=== PATIENT | female | born 1975 | race Caucasian/White ===

== ENCOUNTER 2022-10-20 16:09 | Emergency (ER) | payer OTHER, SELFPAY ==
--- NOTE | 2022-10-20 16:11 | ED_ITS ---
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 Patient states that she believes it was a spider as she did not see anything flying in the area. Patient denies any dizziness, lightheadedness, abdominal pain, nausea, vomiting, fever, chills, blurry vision, double vision, loss of vision, chest pain, difficulty breathing, shortness of breath, back pain, night sweats, pain with urination, increased urinary frequency, increased urinary urgency, blood in her urine or stool, syncope or a near syncopal episode, bowel incontinence, bladder incontinence, bowel retention, bladder retention, or any other complaints at this time. Onset (ago): minute(s) Location: left and upper extremity Radiation: non-radiation Severity: mild Severity scale (1-10): 3 Quality: aching and dull Pain Consistency: constant Relieving factors: none Exacerbating factors: none Associated symptoms: denies other symptoms Treatments prior to arrival: none Related Data Previous Rx's Medication Instructions Recorded prednisone 20 mg tablet 20 mg PO DAILY 7 days #7 tabs 10/20/22 Allergies Allergy/AdvReac Type Severity Reaction Status Date / Time insect venom [insect bites] Allergy Anaphylaxis Verified 10/20/22 16:18 Review of Systems Constitutional: Constitutional: Reports no additional constitutional complaints, Denies chills, Denies fever(s) and Denies night sweats Eyes: Eyes: Reports no additional eye complaints, Denies blurry vision, Denies change in vision, Denies diplopia, Denies eye discharge, Denies loss of vision and Denies eye pain ENT: Denies dizziness Cardiovascular: Cardiovascular: Reports no additional cardiovascular complaints, Denies chest pain, Denies lightheadedness, Denies Loss of Consciousness and Denies dyspnea Respiratory: Respiratory: Reports no additional respiratory complaints and Denies dyspnea Gastrointestinal: Gastrointestinal: Reports no additional gastrointestinal complaints, Denies abdominal pain, Denies melena, Denies hematochezia, Denies change in bowel habits and Denies change in stool character Genitourinary: Genitourinary: Denies hematuria, Denies urinary frequency, Denies dysuria, Denies urinary incontinence, Denies urinary hesitancy and Denies urinary urgency Musculoskeletal: Musculoskeletal: Reports no additional musculoskeletal complaints, Denies numbness and Denies tingling Comments: left wrist insect bite Neurologic: Denies dizziness, Denies loss of vision, Denies numbness and Denies tingling Psychiatric: Psychiatric: Reports no additional psychiatric complaints Endocrine: Endocrine: Reports no additional endocrine complaints Hematologic/Lymphatic: Hematologic/Lymphatic: Reports no additional hematologic/lymphatic complaints Allergic/Immunologic: Allergic/Immunologic: Reports no additional allergic/immunologic complaints PMFSH Past Medical History Attestation statement: The following information was validated with the patient. Source: old records reviewed and nursing notes reviewed Physical Exam ED Vital Signs: Vital Signs - 24 hr 10/20/22 16:13 Temperature 98.1 F Pulse Rate 69 Respiratory Rate 18 Blood Pressure 145/89 H Pulse Oximetry 96 Oxygen Delivery Method Room Air BMI result Body Mass Index 31.6 Const General: cooperative, no acute distress, alert and awake Nutritional Appearance: well nourished Orientation/consciousness: patient oriented x3 Limitations: no limitations HENMT Head: Yes normal to inspection and Yes atraumatic Ears: hearing grossly normal bilaterally and external ears normal General nose exam: Normal external nose present, no nasal discharge noted and no epistaxis Face and sinus: Yes normal facial exam, No abrasion and No laceration Mouth: Normal oral and palatal mucosa present, no drooling and no muffled voice Eyes General: appearance normal, both eyes and all related structures Periorbital: periorbital findings normal Eyelids: Yes eyelids normal Conjunctivae: conjunctivae normal Pupils: Equal, round and reactive pupils present EOM: EOMs intact bilaterally Neck Neck: Yes normal visual inspection, Yes full ROM and Yes no lymphadenopathy Chest Chest palpation & inspection: normal inspection of the chest Resp Effort & Inspection: normal respiratory effort and able to speak in complete sentences GI Inspection: Yes normal to inspection Neuro General: patient oriented x3 and moves all extremities Cranial nerves: Yes Equal, round and reactive pupils present Cognition (Neuro): normal cognition Motor exam (neuro): 5/5 motor strength present throughout Sensory Exam: Normal double simultaneous stimulation for sensation Coordination: [id number] test normal Extrem Other: small insect bite to the left lateral wrist General: Yes full ROM and Yes capillary refill normal Psych Appearance: grossly normal Mental Status: mental status grossly normal Affect: normal affect Attitude: cooperative Thought process: Normal thought process present Thought content: Normal thought content present Insight: Good insight present (Psych) Course Course Course Narrative: RME performed by Jane Hall PA-C. Patient is a 47 year old assigned femal e at presenting to the emergency department with an insect bite to the left wrist. [Labs/imaging/swabs] ordered. Patient placed back in the waiting room pending room availability and results. 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 Patient's physical exam was as noted in the physical exam portion of this note. I explained my physical exam findings to the patient. I answered all questions asked by the patient. Patient received IM solu-medrol and PO bendaryl which she stated helped her symptoms significantly. I stressed the importance of the patient taking her medication as prescribed. I stressed the importance of the patient following up with her primary care provider. I stressed the importance of the patient returning to the emergency department immediately if her symptoms were to worsen or if she were to develop any dizziness, shortness of breath, difficulty breathing, chest pain, blurry vision, loss of vision, nausea, vomiting, abdominal pain, fever, chills, back pain, or any other complaints. Patient verbalized agreement and understanding with this treatment plan and discharge. Differential Diagnosis Differential Diagnoses: The differential diagnosis associated with the presentation includes Bug bite Insect bite Allergic reaction Localized allergic reaction Prescription Management I considered prescription management with: Other (patient was given an oral steroid) Discharge Plan Discharge Clinical Impression: Allergic reaction Patient Disposition: Home, Self-Care Instructions: General Allergic Reaction (ED) Additional Instructions: Follow up with your primary care provider. Return to the emergency department immediately if your symptoms worsen or if you develop any dizziness, shortness o f breath, difficulty breathing, chest pain, blurry vision, loss of vision, nausea, vomiting, abdominal pain, fever, chills, back pain, or any other complaints. Prescriptions: New prednisone 20 mg tablet 20 mg PO DAILY 7 Days Qty: 7 0RF Referrals: Hoa Doty MD [Primary Care Provider] - Interventions: ED Discharge Assessment Last Done: 10/20/22 16:29 Print Language: Salvadorean
[2022-10-20 16:13] VITALS: BP 145/89; PULSE 69; RESP 18; TEMP 36.7; O2SAT 96; BMI 31.6
[2022-10-20] MEDS: methylPREDNISolone Sod Succ 125 MG/2 ML VIAL 60 MG IM (16:25)
[2022-10-20] MEDS: diphenhydrAMINE HCL 25 MG CAPSULE PO (16:25)
== END 2022-10-20 16:34 | disposition home or self-care (01) ==
LOC: HO.ED 16:34
PROVIDERS: Emergency Provider Emergency Medicine; PCP Internal Medicine
DX: L50.0 Allergic urticaria (principal)
CPT/HCPCS: 96372; 99282; 99283; J2930

== ENCOUNTER 2022-10-29 08:52 | Outpatient (AMB) | payer OTHER, SELFPAY ==
[2022-10-29 08:56] VITALS: BP 134/86; PULSE 80; O2SAT 98; BMI 33.5
--- NOTE | 2022-10-29 08:56 | A.OFFPC_ITS ---
Vital Signs 10/29/22 08:56 Height 5 ft 5 in Weight 201 lb 6 oz BMI 33.5 BP 134/86 Blood Pressure Location Lt brachial Position Sitting Pulse 80 Pulse Source Pulse Oximeter Pulse Oximetry (%) 98 Oxygen Delivery Method Room Air Intake Visit Reasons: [employer]ER, request a physical Intake Note: Patient is a new patient here to establish care. PCP will do annual physical today. Transferring care from [facility]. Medical records have been requested Today. Miller Supervisor Required: No Accompanied by: Self / Same As Patient Allergies insect venom [insect bites] Allergy (Verified 10/29/22 09:17) Anaphylaxis Medication List - Last Reconciled 10/29/22 by Hoa Salgado MD bupropion HCl 300 mg PO DAILY Tobacco use date assessed: 10/29/22 Dental Screening Dental Screen Date: 10/29/22 Did you have a dental visit in the last 12 months?: Yes Did you have a dental problem in the last 6 months where you did not have access to dental care?: No Was dental information given to patient?: Patient has dentist HPI HPI Comments History of Present Illness Details This is a 47-year-old female with mild major depression that comes for her physical exam as new patient. Last Pap smear was at [facility] at 2019 and he was normal as per patient. Last mammogram was 2020. Has never had a colonoscopy. Has family history of early coronary artery disease. Has occasional chest pain when and shows. Depression stable with bupropion. She is obese with a BMI of 33.9 and was advised to do diet and exercise to reach BMI goal less than 30. [facility] Surgical History History of knee surgery Family History Mother Cardiovascular disease Father COPD (chronic obstructive pulmonary disease) Heart attack Congenital heart failure Social History (Updated 10/29/22 @ 09:24 by Hoa Salgado MD) Housing: House Alcohol intake: former Patient Tobacco Use Status: Former Tobacco user Tobacco use type: Cigarette (quit 7 years ago) e-Cigarette/Vaping Use: Never Used service: No Current occupational status: employed Cognitive needs: No Hearing needs: No Vision needs: Yes Questionnaire PHQ-9 Over the last 2 weeks, how often have you been bothered by any of the following problems? 1. Little interest or pleasure in doing things: not at all 2. Feeling down, depressed, or hopeless: not at all 3. Trouble falling or staying asleep, or sleeping too much: not at all 4. Feeling tired or having little energy: not at all 5. Poor appetite or overeating: not at all 6. Feeling bad about yourself - or that you are a failure or have let yourself or your family down: not at all 7. Trouble concentrating on things, such as reading the newspaper or watching television: not at all 8. Moving or speaking so slowly that other people could have noticed. Or the opposite - being so fidgety or restless that you have been moving around a lot more than usual: not at all 9. Thoughts that you would be better off or of hurting yourself in some way: not at all Total score: 0 Depression Screening Interpretation: Negative [id number] - PHQ-9 Billing: Yes Source: Developed by Drs. Ventura Harris, Katelyn Hines, Kian Tabor and colleagues, with an educational sreedhar from [employer]. Thrive Questionnaire Date Thrive assessed: 10/29/22 I am a: Patient What is your living situation today?: I have a steady place to live Within the past 12 months, did the food you bought not last and you didn't have the money to get more?: Never true Within the past 12 months, did you worry whether your food would run out before you got money to buy more?: Never true Do you have trouble paying for medicines?: No Do you have trouble getting transportation to medical appointments?: No Do you have trouble paying your heating and electricity bill?: No Do you have trouble taking care of your child, family member or friend?: No Do you have trouble with day-to-day activities such as bathing, preparing meals, shopping, managing finances, etc.?: No Are you currently unemployed and looking for a job?: No Are you interested in more education?: No Please select the resources that you would like help with: None Currently or been in a relationship where the following occur: no concerns reported AUDIT C Alcohol Use Questionnaire (AUDIT-C) 1. How often do you have a drink containing alcohol?: Never 3. How often do you have six or more drinks on one occasion?: Never Total Score: 0 LILLIE-7 AMB Questionnaire LILLIE-7 Date LILLIE - 7 assessed: 10/29/22 Feeling nervous, anxious, or on edge: 0 = Not at all Not being able to stop or control worryin = Not at all Worrying too much about different things: 0 = Not at all Trouble relaxin = Not at all Being so restless that it is hard to sit still: 0 = Not at all Becoming easily annoyed or irritable: 0 = Not at all Feeling afraid as if something awful might happen: 0 = Not at all Total LILLIE-7 score (0-4 normal; 5-9 mild; 10-14 moderate; 15-21 severe): 0 Source: Developed by Drs. Ventura Harris, Katelyn Hines, Kian Tabor and colleagues, with an educational sreedhar from [employer]. LILLIE-7 Assessment Billing LILLIE-7 Assessment Tool: LILLIE-7 Assessment [id number] Review of Systems Const All systems reviewed & are unremarkable except as noted in HPI and below Eyes Reports no additional complaints, Denies change in vision and Denies other visual disturbances Resp Denies cough GI Denies abdominal pain, Denies change in bowel habits, Denies excessive flatus, Denies nausea and Denies vomiting Denies urinary incontinence, Denies urinary hesitancy and Denies urinary urgency Musc Denies abnormal gait, Denies atrophy, Denies deformity and Denies limited range of motion Skin/Breast Denies bleeding lesions, Denies changing lesions and Denies rash Neuro Denies abnormal gait and Denies lack of coordination Physical exam (Primary Care) Vital Signs: Last Vital Signs Pulse 80 10/29/22 08:56 BP 134/86 10/29/22 08:56 Pulse Ox 98 10/29/22 08:56 Oxygen Delivery Method Room Air 10/29/22 08:56 BMI result Body Mass Index 33.5 Tobacco/Smoking Status: Tobacco use Status Tobacco use date assessed 10/29/22 10/29/22 09:16 Patient Tobacco Use Status Former Tobacco user 10/29/22 09:24 Tobacco use type Cigarette (quit 7 years ago) 10/29/22 09:24 e-Cigarette/Vaping Use Never Used 08/15/23 09:24 PHQ-9: PHQ-9 Score PHQ-9: Total score 0 10/29/22 09:39 Depression Screening Interpretation: Negative Thrive Assessment: Date of Thrive Assessment Date Thrive assessed 10/29/22 10/29/22 09:16 Currently or been in a relationship where the following occur: no concerns reported Const Orientation/consciousness: patient oriented x3 HENMT Head: Yes normal to inspection, Yes normocephalic and Yes atraumatic Ears: external ears normal Eyes General: appearance normal, both eyes and all related structures Eyelids: Yes eyelids normal Conjunctivae: conjunctivae normal Neck Neck: Yes normal visual inspection and Yes supple Resp Effort & Inspection: normal respiratory effort Auscultation: clear to auscultation bilaterally Cardio Jugular venous distension: no JVD Rate: regular rate Rhythm: regular rhythm Heart sounds: S1 normal heart sound present and S2 normal heart sound present GI Inspection: Yes normal to inspection Palpation (GI): Soft to palpation and nontender Auscultation: normal bowel sounds Skin General skin exam: no rashes or lesions noted Neuro General: patient oriented x3 and no focal motor deficits Extrem General: Yes full ROM Psych Appearance: grossly normal Assessment and Plan Assessment & Plan (1) Physical exam: Code(s): Z00.00 - Encounter for general adult medical examination without abnormal findings Plan: Repeat in a year (2) Mild major depression: Code(s): F32.0 - Major depressive disorder, single episode, mild Plan: Continue bupropion Orders: Orders CA echo transthoracic complete Today R01.1 - Cardiac murmur, unspecified Comprehensive [place]. Panel Fast Today Z00.00 - Encounter for general adult medical examination without abnormal findings Lipid Panel Today Z00.00 - Encounter for general adult medical examination without abnormal findings Thyroid Stimulating Hormone Today E66.9 - Obesity, unspecified, Z68.33 - Body mass index [BMI] 33.0-33.9, adult ECG 12 lead EKG Today R07.9 - Chest pain, unspecified Complete Blood Count Auto Diff Today E66.9 - Obesity, unspecified, Z68.33 - Body mass index [BMI] 33.0-33.9, adult MM screening mammo BI Today Z12.31 - Encounter for screening mammogram for malignant neoplasm of breast Coding Level of Care Code New Pt Prev Care 40-64y(70023) Diagnoses Physical exam Z00.00 Mild major depression F32.0 Additional Codes LILLIE-7 Assessment Billing - LILLIE-7 Assessment Tool: LILLIE-7 Assessment [id number] ([id number]) Time Spent (min) 31
== END 2022-10-29 09:38 | disposition home or self-care (01) ==
PROVIDERS: PCP Internal Medicine; Visit Provider Internal Medicine
DX: Z00.00 Encounter for general adult medical examination without abnormal findings (principal); F32.0 Major depressive disorder, single episode, mild
CPT/HCPCS: 99386

== ENCOUNTER 2022-10-30 07:25 | Outpatient (REF) | payer OTHER, SELFPAY ==
--- NOTE | 2022-10-30 07:37 | ECG_ITS ---
Test Reason : cp Blood Pressure : / mmHG Vent. Rate : 064 BPM Atrial Rate : 064 BPM P-R Int : 134 ms QRS Dur : 088 ms QT Int : 384 ms P-R-T Axes : 051 041 073 degrees QTc Int : 396 ms Normal sinus rhythm Increased R/S ratio in V1, consider early transition or posterior infarct Abnormal ECG No previous ECGs available Referred By: Hoa Salgado Electronically Signed By:PRANAV DICK
[2022-10-30 07:51] LABS: MANUAL DIFF FLAG NO
[2022-10-30 08:07] LABS: Basophils Absolute Auto 0.1 X10*3/uL (0.0-0.2); Basophils Percent Auto 0.5 % (0-2); Eosinophils Absolute Auto 0.1 X10*3/uL (0.0-0.4); Eosinophils Percent Auto 0.9 % (0-4); Hematocrit 41.7 % (37.0-47.0); Hemoglobin 14.1 g/dl (12.0-16.0); Imm Gran Abs Auto 0.04 X10*3/uL (0.00-0.03); Imm Gran Pct Auto 0.4 % (0.0-0.4); Lymphocytes Percent Auto 21.1 % (20-40); Mean Corpuscular HGB Conc 33.8 g/dl (31.0-35.0); Mean Corpuscular Hemoglobin 29.6 pg (27.0-33.0); Mean Corpuscular Volume 87.4 fL (80.0-98.0); Mean Platelet Volume 10.3 fL (9.4-12.3); Monocytes Absolute Auto 0.7 X10*3/uL (0.1-1.2); Monocytes Percent Auto 7.2 % (2-11); Neutrophils Absolute Auto 6.5 x10*3/uL (2.0-8.3); Neutrophils Percent Auto 69.9 % (45-73); Platelet Count 340 X10*3/uL (160-400); Red Blood Count 4.77 X10*6/uL (4.20-5.50); Red Cell Distribution Width 12.7 % (11.0-16.0); White Blood Count 9.3 X10*3/uL (4.8-10.8)
[2022-10-30 08:37] LABS: Alanine Aminotransferase 12 U/L (0-31); Albumin Level 4.2 g/dL (3.5-5.0); Alkaline Phosphatase 48 U/L (39-117); Anion Gap 11 (12-20); Aspartate Amino Transferase 13 U/L (5-31); Bilirubin Total 0.6 mg/dL (0.0-1.0); Blood Urea Nitrogen 8 mg/dL (9-16); Calcium 9.2 mg/dL (8.4-10.2); Carbon Dioxide 25 mmol/L (22-29); Chloride 104 mmol/L (96-108); Cholesterol 218 mg/dL; Estimated Glomerular Filt Rate > 60; Glucose Fasting 98 mg/dL (60-99); HDL Cholesterol 48 mg/dL; LDL Cholesterol Calculated 143 mg/dl; Potassium 4.6 mmol/L (3.3-5.1); Sodium 135 mmol/L (135-145); Total Protein 7.5 g/dL (6.5-8.0); Triglycerides 137 mg/dL
[2022-10-30 09:00] LABS: Thyroid Stimulating Hormone 1.16 uIU/mL (0.32-4.0)
== END 2022-10-30 07:26 | disposition home or self-care (01) ==
LOC: HO.LAB 07:25
PROVIDERS: PCP Internal Medicine; Visit Provider Internal Medicine
DX: Z00.00 Encounter for general adult medical examination without abnormal findings (principal); E66.9 Obesity, unspecified; R07.9 Chest pain, unspecified; Z68.33 Body mass index [BMI] 33.0-33.9, adult
CPT/HCPCS: 36415; 80053; 80061; 84443; 85025; 93005

== ENCOUNTER → 2022-11-27 07:36 | Outpatient (REF) | payer OTHER, SELFPAY ==
--- NOTE | 2022-11-27 07:40 | ECG_ITS ---
Test Reason : cp Blood Pressure : / mmHG Vent. Rate : 064 BPM Atrial Rate : 064 BPM P-R Int : 138 ms QRS Dur : 088 ms QT Int : 384 ms P-R-T Axes : 049 034 066 degrees QTc Int : 396 ms Normal sinus rhythm Normal ECG When compared with ECG of 30-OCT-2022 07:46, No significant change was found Referred By: Hoa Salgado Electronically Signed By:PRANAV DICK
--- NOTE | 2022-11-27 07:53 | CA_ITS ---
Transthoracic Echocardiogram Patient (Last, First, Middle): Elo Watts, Gender: Female Date of : 1975 Age: 47 Procedure Date: 11/27/2022 Procedure Type: Transthoracic Echocardiogram Location: OP Height: 165.1 cm Weight: 88.45 kg BSA: 1.96 m2 Heart Rate: 56 bpm BP: 130 / 70 mmHg Food Safety Coordinator: JCortez/FLORECITA Referring MD: Hoa Salgado MD Symptoms: R01.1 - Cardiac murmur, unspecified Study Quality: Fair but adequate ECG Rhythm: Bradycardia Conclusions: - The left ventricular systolic function is normal. The visually estimated ejection fraction is between 55-60%. - No obvious valvular pathology seen on this study. Findings Left Ventricle Normal left ventricular cavity size. There is normal left ventricular wall thickness. The left ventricular systolic function is normal. The visually estimated ejection fraction is between 55-60%. There is no evidence of regional wall motion abnormalities. Diastolic function is normal for age. Right Ventricle Normal right ventricular cavity size and systolic function. Atria Both atria are normal in size. Aortic Valve There is a normal trileaflet aortic valve. There is mild calcification of the aortic valve. There is no aortic valve stenosis. There is no aortic valve regurgitation. Mitral Valve The mitral valve appears normal. There is no mitral valve regurgitation. There is no mitral valve stenosis. Pulmonic Valve The pulmonic valve is likely normal. Tricuspid Valve Normal tricuspid valve structure. There is mild tricuspid valve regurgitation. There is no evidence of pulmonary hypertension. Great Vessels The asc aorta is normal in size. Venous The inferior vena cava is normal in size and collapses greater than 50% with inspiration. Pericardium/Pleural There is no evidence of pericardial effusion. Prior Study Comparison No prior study available for comparison. Recommendations, Care & Conclusions No obvious valvular pathology seen on this study. Measurements 2D Linear Measurements IVSd: 0.69 0.6-0.9/0.6-1.0 cm LVIDd: 4.40 3.9-5.3/4.2-5.9 cm LVIDd Index: 2.24 2.4-3.2/2.2-3.1 cm/m2 LVIDs: 3.08 2.0-3.6 cm LVPWd: 0.89 0.7-1.1 cm LA Diam: 3.30 2.7-3.8/3.0-4.0 cm LAIDs Index: 1.68 1.5-2.3 cm/m2 LV Mass: 134.26 67-162/88-224 g LV Mass Index: 68.50 43-95/49-115 g/m2 LVOT Diam: 2.20 3.0+(-)1.3 cm 2D Systolic Function EF 4C: 68.80 >55% Mitral Valve MV Pk E: 0.83 MV PK A: 0.57 MV Decel Time: 165.00 E/A: 1.50 E'Lateral: 11.40 E'Medial: 9.36 E/E' Med: 8.90 E/E' Lat: 7.30 PHT: 48.00 MVA PHT: 4.58 Decel [place]: 5.05 Aortic Valve AoV Pk Herber: 1.41 AoV Mn Herber: 1.10 AoV VTI: 0.31 AoV Pk Grad: 8.00 Aov Mn Grad: 5.00 JONI Cont.VTI: 2.63 LVOT LVOT Pk Herber: 0.92 LVOT Mn Herber: 0.70 LVOT VTI: 0.21 LVOT Pk Grad: 3.00 LVOT Mn Grad: 2.00 LVOT Diam: 2.20 LVOT Area: 3.80 Diastolic Function MV Pk E: 0.83 MV Pk A: 0.57 E/A: 1.50 E'Medial: 9.36 E/E' Med: 8.90 E' Laterial: 11.40 E/E' Lat: 7.30 Tricuspid Valve TR Pk Herber: 1.80 TR Pk Grad: 13.00 RA Press: 3.00 RVSP: 16.00 Great Vessels Aorta Sinus of Valsalva: 2.70 2.0-3.5 cm Ao Asc: 2.90 2.1-3.4 cm Pulmonary Valve PV Pk Herber: 0.79 Peak PV Grad: 2.00 Updated in Other Vendor System with Status of Final Erick Bernal MD electronically signed on 11/28/2022 12:41:19 PM with status of Final
== END ==
LOC: HO.CARD 07:36
PROVIDERS: PCP Internal Medicine; Visit Provider Internal Medicine
DX: Z12.31 Encounter for screening mammogram for malignant neoplasm of breast (principal); R07.9 Chest pain, unspecified; R01.1 Cardiac murmur, unspecified
CPT/HCPCS: 77063; 77067; 93005; 93306

== ENCOUNTER → 2022-11-27 07:53 | Outpatient (BNV) | payer OTHER, SELFPAY | PROVIDERS: PCP Internal Medicine; Visit Provider Internal Medicine | DX: I36.1 Nonrheumatic tricuspid (valve) insufficiency (principal); I35.8 Other nonrheumatic aortic valve disorders | CPT/HCPCS: 93306 ==

== ENCOUNTER → 2022-11-27 09:00 | Outpatient (BNV) | payer OTHER, SELFPAY | PROVIDERS: PCP Internal Medicine; Visit Provider Radiology Diagnostic Radiology | DX: Z12.31 Encounter for screening mammogram for malignant neoplasm of breast (principal) | CPT/HCPCS: 77063; 77067 ==

== ENCOUNTER 2023-01-04 22:34 | Emergency (ER) | payer OTHER, SELFPAY ==
--- NOTE | ~2023-01-04 | US_ITS ---
EXAMINATION: US VENOUS ULTRASOUND WITH DOPPLER LOWER EXTREMITY, LEFT CLINICAL INFORMATION: Left leg pain evaluate for DVT COMPARISON: None available. TECHNIQUE: Ultrasound of the deep veins is performed from the hip to the calf with compression sonography and color and pulse Doppler assessment. Spectral analysis with color-flow imaging is performed. FINDINGS: There is normal venous compression and respiratory variation and augmented flow. The visualized common femoral vein, superficial femoral vein, profunda femoral vein, popliteal vein, and the trifurcation region shows no evidence of deep venous thrombosis. There is no significant popliteal fossa cyst. If the patient's symptoms persist, followup ultrasound in 5 days 7 days might be of value to exclude proximal propagation from a non-visualized calf vein. US/US venous duplex LE IMPRESSION: No DVT demonstrated in the left lower extremity.
--- NOTE | ~2023-01-04 | CT_ITS ---
EXAMINATION: CT ABDOMEN AND PELVIS WITH CONTRAST CLINICAL INFORMATION: LLQ, L hip tenderness r/o abscess, necrotizing fas COMPARISON: None available. TECHNIQUE: Multidetector volumetric images were obtained from the superior aspect of the liver through the pubic symphysis following administration 85 mL of Omnipaque 350 intravenous contrast. Sagittal and coronal reformatted images were obtained on the technologist's workstation. Oral contrast: No This CT examination was performed using dose optimization techniques as appropriate, variously including the following: *Automated exposure control *Adjustment of mA and/or kV according to patient size (this includes techniques or standardized protocols for targeted exams where dose is matched to indication/reason for exam; i.e. extremities or head) *Use of iterative reconstruction technique DLP: 1083 mGy-cm FINDINGS: LUNG BASES: Minimal dependent atelectasis. Coronary artery calcifications are present. LIVER, GALLBLADDER, AND BILIARY TREE: The liver is normal in size, shape, and attenuation. Tiny hypodensity at the dome of the liver is most suggestive of a cyst. No biliary ductal dilatation is present. The gallbladder is unremarkable with no evidence of radiopaque gallstones, gallbladder wall thickening, or obvious pericholecystic inflammatory changes. PANCREAS: Unremarkable. SPLEEN: Unremarkable. ADRENAL GLANDS: Unremarkable. KIDNEYS AND URETERS: Bilateral nephrograms are symmetric. Punctate calculus is noted in the mid to upper right kidney. No hydronephrosis or obstructing calculus identified. BLADDER: Unremarkable. GASTROINTESTINAL TRACT: No evidence of bowel obstruction or significant wall thickening. The appendix is unremarkable. No free air is seen. ABDOMINAL WALL: No significant hernia is appreciated. No soft tissue gas identified. LYMPH NODES: Normal. VASCULAR: Unremarkable. PELVIC VISCERA: There are multiple uterine masses along with scattered calcifications, favoring fibroids, largest on the left measuring up to at least 6 cm. Trace pelvic free fluid. OSSEOUS STRUCTURES: Scattered endplate osteophytes in the spine. No acute findings identified in the left hip. CT/CT abdomen pelvis w IV con IMPRESSION: 1. Trace pelvic free fluid, which may be physiologic. No additional acute findings identified in the abdomen/pelvis. 2. Multiple uterine masses, favoring fibroids. 3. Coronary artery calcifications. Correlation with cardiac risk factors is recommended. 4. Punctate right renal calculus without hydronephrosis.
--- NOTE | ~2023-01-04 | CT_ITS ---
EXAMINATION: CT LEFT FEMUR WITH IV CONTRAST INDICATION INFORMATION: Left hip, thigh pain R/necrotizing fasciitis COMPARISON: None TECHNIQUE: 85 mL Omnipaque 350 intravenous contrast was utilized. Multidetector helical imaging was performed through the left femur. Coronal and sagittal reformatted images were created. DLP: 1083 mGy-cm DOSE LOWERING TECHNIQUES: This CT examination was performed using dose optimization techniques as appropriate, variously including the following: - Automated exposure control - Adjustment of mA and/or kV according to patient size (this includes techniques or standardized protocols for targeted exams were dose is matched to indication/reason for exam; i.e. extremities or head) - Use of iterative reconstruction technique FINDINGS: Alignment across the hip is anatomic with slight joint space narrowing and spurring along the acetabulum. No evidence of acute fracture. No soft tissue gas is seen. No fluid collection identified. Vasculature of the thigh appears normally enhancing. Lateral patellar tilt is noted at the knee. There is a small chronic appearing calcification lateral to the patella. See accompanying CT abdomen/pelvis report for discussion of intrapelvic structures. CT/CT femur LT w IV con IMPRESSION: No acute findings identified.
[2023-01-04 22:47] VITALS: BP 141/77; PULSE 79; RESP 18; TEMP 36.9; O2SAT 97; BMI 32.4
[2023-01-04] MEDS: Acetaminophen 325 MG TABLET 975 MG PO (23:57)
[2023-01-05 01:03] VITALS: BP 130/80; PULSE 66; RESP 16; O2SAT 98
--- NOTE | 2023-01-05 03:05 | PC.NURSE ---
Patient is alert and oriented x3, VSS. Patient c/o pain in left hip radiating to left knee. Pain is 10/10 at present. Patient offered ice pack, patient declined. Dr. Harrison notified. Patient's spouse is at bedside, call raya within patient's reach.
--- NOTE | 2023-01-05 03:12 | ED.LOWEXIN ---
HPI - Extremity Injury (Lower) General Chief Complaint: Extremity Injury, Lower Stated Complaint: Pain left hip Time Seen by Provider: 01/05/23 03:12 Source: patient and family (-Praveen) Mode of arrival: ambulatory Limitations: no limitations History of Present Illness HPI Narrative: 7-year-old female who presents emergency department for evaluation of left hip pain. She states that the pain initially started on Friday night, 01/03/2023 (2 days prior). She states the pain was in her left hip area. Patient states that she started her menses she thought that the pain was related to her menstrual period. She states that on 01/04/2023, the pain seemed to get worse. She and her drove to [place] she states that the pain got progressively worse. She states the pain is located in her hip and goes down to just above her knee. She states the pain is a constant, sharp pain which is 8 to 10/10 at its worst of the pain. Patient states she is physically active and she did participate in a yoga class on Friday but does not believe that she injured herself in any way. She denied fever, chills. She states that she does have nausea but she attributes this to the pain she denied vomiting or diarrhea. She denied myalgias or arthralgias. This is her 1st episode of this type of pain. Related Data Home Medications Medication Instructions Recorded Confirmed bupropion HCl 300 mg 24 hr tablet, 300 mg PO DAILY 10/29/22 10/29/22 extended release Previous Rx's Medication Instructions Recorded cyclobenzaprine 5 mg tablet 5 mg PO TID PRN muscle spasm or 01/05/23 pain #14 tabs morphine 15 mg immediate release 15 mg PO Q4-6H PRN pain #14 tabs 01/05/23 tablet Allergies Allergy/AdvReac Type Severity Reaction Status Date / Time insect venom [insect bites] Allergy Anaphylaxis Verified 10/29/22 09:17 Penicillins Allergy Anaphylaxis Verified 01/04/23 22:55 Review of Systems Review of Systems: Yes all other systems are reviewed and are negative [facility] Past Medical History [facility] Narrative: Past medical history: None. Social history: She denies tobacco, alcohol and drug use. Surgical History History of knee surgery Family History Family History Mother Cardiovascular disease Father COPD (chronic obstructive pulmonary disease) Heart attack Congenital heart failure Social History Social History Housing: House Alcohol intake: former Patient Tobacco Use Status: Former Tobacco user Tobacco use type: Cigarette (quit 7 years ago) Smoked in Last 30 Days: No e-Cigarette/Vaping Use: Never Used Use of substances other than those prescribed or required for medical reasons: No Advance Directives: No Advance Directives Information Provided: No Patient : Yes service: No Current occupational status: employed Cognitive needs: No Hearing needs: No Vision needs: Yes Physical Exam Vital Signs: Vital Signs: Last Vital Signs Temp 98.4 F 01/04/23 22:47 Pulse 61 01/05/23 04:40 Resp 16 01/05/23 07:10 BP 109/62 01/05/23 04:40 Pulse Ox 95 01/05/23 04:40 O2 Del Method Room Air 01/05/23 04:40 BMI result Body Mass Index 32.4 Vital signs were normal Exam: General: Awake, alert in [id number] distress secondary to her pain, elevated BMI 32.4. Head: Normocephalic, atraumatic EENT: PERRL, Lids normal, sclera normal, conjunctiva normal, nose normal , ears normal, throat without erythema or exudates Neck: Supple, no adenopathy, no trachea midline or C-spine tenderness Lung: breath sounds symmetric, no wheezing, rales or rhonchi Chest: symmetric movement, nontender Heart: regular rate and rhythm, normal S1, S2 no murmurs or rubs Abdomen: soft, moderate left lower quadrant tenderness, no rebound, no voluntary or involuntary guarding Back: no vertebral tenderness, no CVAT Extremities: Patient has no tenderness palpation over hip joint, she has no pain with passive log-rolling or flexion of the hip joint. There is no increased warmth or erythema over the skin of her hip or left lower extremity pain. She does have mild tenderness with palpation of the muscles of the left thigh. Skin: no rashes, no lesion, normal color and warmth Neuro: Awake, alert, oriented, normal speech, cranial nerves intact, moves all extremities symmetrically Psych: Pleasant, cooperative Medications Administered Discontinued Medications Generic Name Dose Route Start Last Admin Trade Name Ruben PRN Reason Stop Dose Admin Acetaminophen 975 mg 01/04/23 23:54 01/04/23 23:57 Acetaminophen 325 Mg Tablet PO 01/04/23 23:55 975 mg ONCE ONE Administration Sodium Chloride 1,000 mls @ 999 mls/hr 01/05/23 03:26 01/05/23 07:10 Ns IV 01/05/23 04:26 Infused .Q1H1M STA Infusion Meropenem 1 gm/ Sodium 100 mls @ 200 mls/hr 01/05/23 03:44 01/05/23 07:10 Chloride IV 01/05/23 04:13 Infused ONCE ONE Infusion Iohexol 85 ml 01/05/23 05:18 01/05/23 05:18 Iohexol 350 Mg/Ml 100 Ml Infus..Btl IV 01/05/23 05:19 85 ml ONCE ONE Administration Ketorolac Tromethamine 15 mg 01/05/23 03:26 01/05/23 03:58 Ketorolac Tromethamine 15 Mg/Ml Vial IVPUSH 01/05/23 03:27 15 mg ONCE STA Administration Morphine Sulfate 4 mg 01/05/23 03:26 01/05/23 03:58 Morphine Sulfate 4 Mg/Ml Cartridge IVPUSH 01/05/23 03:27 4 mg ONCE STA Administration Protocol Morphine Sulfate 4 mg 01/05/23 06:40 01/05/23 07:10 Morphine Sulfate 4 Mg/Ml Cartridge IVPUSH 01/05/23 06:41 4 mg ONCE STA Administration Protocol Ondansetron HCl 4 mg 01/05/23 03:26 01/05/23 03:57 Ondansetron Hcl 4 Mg/2 Ml Vial IVPUSH 01/05/23 03:27 4 mg ONCE ONE Administration Medical Decision Making Medical Decision Making MDM Narrative: 47-year-old female who presents emergency department for evaluation of pain in her left hip and leg which came on gradually 01/03/2023 has got progressively worse. She describes the pain is a constant, sharp pain which is worse with movement, states the pain is located in her left leg from her hip to just above her left knee. The patient is physically active and she has not done any unusual exercised injure herself. She has not noted any trauma. She states that she started her menses on 01/03/2023. She denied fever, chills or other systemic symptoms. Patient's vital signs were normal. Patient's exam did reveal moderate left lower quadrant tenderness with no significant pain with passive movement of the left hip. I am concern that the patient may have a deep tissue infection such as necrotizing fascia since her pain is out of proportion to the findings. I ordered Toradol 15 mg IV, morphine 4 mg IV, Zofran 4 mg IV. Since necrotizing fasciitis is being considered the patient was ordered to get meropenem 1 g IV now. 06:23 Patient's laboratory evaluation was unremarkable including a normal WBC, ESR, CRP. CT scan the patient abdomen, pelvis and left femur with IV contrast did not reveal a clear etiology for her pain. Patient only got minimal improvement with the above treatment therefore I ordered morphine g IV. Duplex ultrasound of the left lower extremity was order to rule out possibility of DVT is the cause of her symptoms Differential Diagnosis Differential Diagnoses: The differential diagnosis associated with the presentation includes Differential diagnosis includes Lab Data MDM Lab Attestation statement: I reviewed the patient's lab results. My interpretation patient's laboratory evaluation as follows: [place] [address] CMP was normal . ESR was normal at 7. CRP normal at 0.053. Lipase was normal. CK was normal 01/05/23 03:50 01/05/23 03:50 Labs: Lab Results 01/05/23 01/05/23 01/05/23 Range/Units 03:49 03:50 04:42 WBC 10.8 (4.8-10.8) X10*3/uL RBC 4.63 (4.20-5.50) X10*6/uL Hgb 13.8 (12.0-16.0) g/dl Hct 40.8 (37.0-47.0) % MCV 88.1 (80.0-98.0) fL MCH 29.8 (27.0-33.0) pg MCHC 33.8 (31.0-35.0) g/dl RDW 12.6 (11.0-16.0) % Plt Count 357 (160-400) X10*3/uL MPV 10.6 (9.4-12.3) fL Immature Gran % (Auto) 0.3 (0.0-0.4) % Neut % (Auto) 82.3 H (45-73) % Lymph % (Auto) 13.1 L (20-40) % Forrest % (Auto) 4.0 (2-11) % Eos % (Auto) 0.0 (0-4) % Baso % (Auto) 0.3 (0-2) % Lymph # (Auto) 1.4 (1.2-4.9) X10*3/uL Forrest # (Auto) 0.4 (0.1-1.2) X10*3/uL Eos # (Auto) 0.0 (0.0-0.4) X10*3/uL Baso # (Auto) 0.0 (0.0-0.2) X10*3/uL Abs Immat Gran (auto) 0.03 (0.00-0.03) X10*3/uL Absolute Neuts (auto) 8.9 H (2.0-8.3) x10*3/uL Absolute Nucleated RBC 0.000 (0.0-0.012) X10*3/uL Nucleated RBC % (auto) 0.0 (0.0-0.2) /100WBC ESR 7 (0-20) MM/HR PT 11.3 (11.1-13.3) SEC INR 0.9 (0.9-1.1) APTT 31.3 (26.0-36.4) SEC Sodium 139 (135-145) mmol/L Potassium 4.1 (3.3-5.1) mmol/L Chloride 108 (96-108) mmol/L Carbon Dioxide 22 (22-29) mmol/L Anion Gap 13 (12-20) BUN 7 L (9-16) mg/dL Creatinine 0.70 (0.5-1.4) mg/dL Estim Creat Clear Calc 111.4 Estimated GFR > 60 Random Glucose 125 H (60-115) mg/dL Lactic Acid 1.2 (0.5-2.0) mmol/L Calcium 9.1 (8.4-10.2) mg/dL Total Bilirubin 0.2 (0.0-1.0) mg/dL AST 15 (5-31) U/L ALT 10 (0-31) U/L Alkaline Phosphatase 52 (39-117) U/L Total Creatine Kinase 74 (26-140) U/L C-Reactive Protein 0.53 H (< or = 0.50) mg/dL Total Protein 7.3 (6.5-8.0) g/dL Albumin 4.2 (3.5-5.0) g/dL Lipase 12 (8-78) U/L Urine Color Yellow Urine Appearance Clear Urine pH 7.0 (5.0-9.0) Ur Specific [place] 1.010 (1.005-1.025) Urine Protein Negative (Neg-Trace) mg/dL Urine Glucose (UA) Negative (Negative) mg/dL Urine Ketones Negative (Negative) mg/dL Urine Blood Negative (Negative) Urine Nitrite Negative (Negative) Ur Leukocyte Esterase Negative (Negative) Radiology Impression Discussion of test interpretation with radiology: I have reviewed the radiologist's reading. Radiologist Impression: CT abdomen pelvis w IV con IMPRESSION: 1. Trace pelvic free fluid, which may be physiologic. No additional acute findings identified in the abdomen/pelvis. 2. Multiple uterine masses, favoring fibroids. 3. Coronary artery calcifications. Correlation with cardiac risk factors is recommended. 4. Punctate right renal calculus without hydronephrosis. Dictated By: Latrell Amaya MD EXAMINATION: CT LEFT FEMUR WITH IV CONTRAST INDICATION INFORMATION: Left hip, thigh pain R/necrotizing fasciitis COMPARISON: None TECHNIQUE: 85 mL Omnipaque 350 intravenous contrast was utilized. Multidetector helical imaging was performed through the left femur. Coronal and sagittal reformatted images were created. DLP: 1083 mGy-cm DOSE LOWERING TECHNIQUES: This CT examination was performed using dose optimization techniques as appropriate, variously including the following: - Automated exposure control - Adjustment of mA and/or kV according to patient size (this includes techniques or standardized protocols for targeted exams were dose is matched to indication/reason for exam; i.e. extremities or head) - Use of iterative reconstruction technique FINDINGS: Alignment across the hip is anatomic with slight joint space narrowing and spurring along the acetabulum. No evidence of acute fracture. No soft tissue gas is seen. No fluid collection identified. Vasculature of the thigh appears normally enhancing. Lateral patellar tilt is noted at the knee. There is a small chronic appearing calcification lateral to the patella. See accompanying CT abdomen/pelvis report for discussion of intrapelvic structures. CT/CT femur LT w IV con IMPRESSION: No acute findings identified. Dictated By: Latrell Amaya MD Discharge Plan Discharge Clinical Impression: Left leg pain Abdominal pain Qualifiers: Abdominal location: left lower quadrant Qualified Code(s): R10.32 - Left lower quadrant pain Patient Disposition: Still a Patient Instructions: Lumbar Radiculopathy (ED) Additional Instructions: Your blood work was unremarkable. The CT scan of your abdomen and left lower leg with IV contrast did not reveal a clear cause for your severe pain. It is possible that your pain may be caused by pinched nerve in your back. Take Flexeril (cyclobenzaprine) 10 mg pills, 1 pill every 6-8 hours as needed for pain or spasm. This medication will make you sleepy. Do not drive or work while taking this medication. Take ibuprofen 200 mg pills, 2 pills every 6 hours as needed for pain. Take Tylenol (acetaminophen) 500 mg pills, 2 pills every 6 hours as needed for pain. For pain not relieved by ibuprofen or Tylenol take morphine 15 mg pills, 1 pill every 4 hours as needed for pain. This medication will make you sleepy, do not drive or work while taking this medication. Morphine is a narcotic medication and can be addicting. If you are concerned about addiction you can ask the pharmacist for less pills or do not get this prescription filled. Follow-up with your doctor in 2 days. Please return to the emergency department if your symptoms get worse or if you develop any symptoms that are concerning to you. Prescriptions: New morphine 15 mg tablet 15 mg PO Q4-6H PRN (Reason: pain) Qty: 14 0RF Rx Instructions: Patient may request partial fill; Partial Fill upon patient request. cyclobenzaprine 5 mg tablet 5 mg PO TID PRN (Reason: muscle spasm or pain) Qty: 14 0RF No Action bupropion HCl 300 mg tablet extended release 24 hr 300 mg PO DAILY
[2023-01-05 03:56] LABS: MANUAL DIFF FLAG NO
[2023-01-05] MEDS: ondansetron HCL 4 MG/2 ML VIAL IVPUSH (03:57)
[2023-01-05 03:58] VITALS: RESP 16
[2023-01-05 03:58] LABS: Basophils Percent Auto 0.3 % (0-2); Hematocrit 40.8 % (37.0-47.0); Hemoglobin 13.8 g/dl (12.0-16.0); Imm Gran Abs Auto 0.03 X10*3/uL (0.00-0.03); Imm Gran Pct Auto 0.3 % (0.0-0.4); Lymphocytes Absolute Auto 1.4 X10*3/uL (1.2-4.9); Lymphocytes Percent Auto 13.1 % (20-40); Mean Corpuscular HGB Conc 33.8 g/dl (31.0-35.0); Mean Corpuscular Hemoglobin 29.8 pg (27.0-33.0); Mean Corpuscular Volume 88.1 fL (80.0-98.0); Mean Platelet Volume 10.6 fL (9.4-12.3); Monocytes Absolute Auto 0.4 X10*3/uL (0.1-1.2); Neutrophils Absolute Auto 8.9 x10*3/uL (2.0-8.3); Neutrophils Percent Auto 82.3 % (45-73); Platelet Count 357 X10*3/uL (160-400); Red Blood Count 4.63 X10*6/uL (4.20-5.50); Red Cell Distribution Width 12.6 % (11.0-16.0); White Blood Count 10.8 X10*3/uL (4.8-10.8)
[2023-01-05] MEDS: Morphine Sulfate 4 MG/ML CARTRIDGE IVPUSH ×2 (03:58→07:10)
[2023-01-05] MEDS: Ketorolac Tromethamine 15 MG/ML VIAL IVPUSH (03:58)
[2023-01-05] MEDS: 0.9 % Sodium Chloride 1,000 ML 999 ML IV (04:03)
[2023-01-05 04:06] LABS: INTERNATIONAL NORM RATIO 0.9 (0.9-1.1); Prothrombin Time 11.3 SEC (11.1-13.3)
[2023-01-05 04:08] LABS: Partial Thromboplastin Time 31.3 SEC (26.0-36.4)
[2023-01-05 04:09] LABS: Lactic Acid 1.2 mmol/L (0.5-2.0)
[2023-01-05 04:14] LABS: Alanine Aminotransferase 10 U/L (0-31); Albumin Level 4.2 g/dL (3.5-5.0); Alkaline Phosphatase 52 U/L (39-117); Anion Gap 13 (12-20); Aspartate Amino Transferase 15 U/L (5-31); Bilirubin Total 0.2 mg/dL (0.0-1.0); Blood Urea Nitrogen 7 mg/dL (9-16); C Reactive Protein 0.53 mg/dL (< or = 0.50); Calcium 9.1 mg/dL (8.4-10.2); Carbon Dioxide 22 mmol/L (22-29); Chloride 108 mmol/L (96-108); Creatinine Clr Calc Pharmacy 111.4; Estimated Glomerular Filt Rate > 60; Glucose Random 125 mg/dL (60-115); Lipase 12 U/L (8-78); Potassium 4.1 mmol/L (3.3-5.1); Sodium 139 mmol/L (135-145); Total Protein 7.3 g/dL (6.5-8.0)
[2023-01-05 04:35] LABS: Erythrocyte Sedimentation Rate 7 MM/HR (0-20)
[2023-01-05 04:40] VITALS: BP 109/62; PULSE 61; RESP 16; O2SAT 95
[2023-01-05 04:48] LABS: Appearance Urine Clear; Color Urine Yellow; Glucose Urine UA Negative (Negative); Leukocyte Esterase Urine Negative (Negative); Nitrite Urine Negative (Negative); Urine Blood Negative (Negative); Urine Ketones Negative (Negative); Urine Protein Negative (Neg-Trace)
[2023-01-05] MEDS: iohexoL 350 MG/ML 100 ML INFUS..BTL 85 ML IV (05:18)
[2023-01-05 07:10] VITALS: RESP 16
--- NOTE | 2023-01-05 08:13 | PC.NURSE ---
Resumed care of patient at 0700, medicated with morphine. Awaiting for patient ultrasound to be completed.
== END 2023-01-05 09:32 | disposition home or self-care (01) ==
PROVIDERS: Emergency Provider Emergency Medicine Emergency Medical Services; PCP Internal Medicine
DX: M79.605 Pain in left leg (principal); R10.32 Left lower quadrant pain; E66.9 Obesity, unspecified; Z68.32 Body mass index [BMI] 32.0-32.9, adult; Z87.891 Personal history of nicotine dependence; Z79.899 Other long term (current) drug therapy
CPT/HCPCS: 36415; 73701; 74177; 80053; 81003; 82550; 83605; 83690; 85025; 85610; 85652; 85730; 86140; 87040; 93971; 96361; 96374; 96375; 96376; 99284; J1885; J2185; J2270; J2405; Q9967

== ENCOUNTER 2023-01-20 13:35 | Outpatient (AMB) | payer OTHER, SELFPAY ==
--- NOTE | 2023-01-20 13:37 | A.OFFVIS_ITS ---
Intake Vital Signs 01/20/23 13:52 Height 5 ft 5 in BP 128/74 Blood Pressure Location Lt brachial Position Sitting Pulse 91 Intake Visit Reasons: COLONOSCOPY SCREENING Intake Note: Patient presents to in office visit today for colonoscopy screening. CC: Patient reports that she has some food sensitivity and she believes it might be to gluten. She reports when this happens she gets diarrhea. Denies other GI symptoms today. Yard Specialist Required: No Accompanied by: Self / Same As Patient Allergies insect venom [insect bites] Allergy (Verified 01/20/23 13:42) Anaphylaxis Penicillins Allergy (Verified 01/20/23 13:42) Anaphylaxis codeine Adverse Reaction (Intermediate, Verified 01/20/23 13:42) hyperactivity Medication List - Last Reconciled 01/20/23 by Amanda Dukes PA-C bupropion HCl 300 mg PO DAILY multivitamin 1 tab PO DAILY naproxen sodium (Aleve) 220 mg PO BID PRN HPI HPI Comments History of Present Illness Details 48-year-old female referred for index sc reening colonoscopy She has occasional diarrhea feels it is due to food sensitivity/gluten allergy- she has a reaction -loose stools. Symptoms improve with gluten free She it is intermittent in abdominal pain with bloating has tried a gluten free seem to have been responsive however had labs that did not correlate with her symptoms. Appetite is good She has no respiratory year cardiac issue She works full-time No nausea, vomiting, hematemesis, hematochezia fever workup [facility] Surgical History History of knee surgery Family History Mother Cardiovascular disease Father COPD (chronic obstructive pulmonary disease) Heart attack Congenital heart failure Social History Household Members Other:: Housing: House Alcohol intake: former Patient Tobacco Use Status: Former Tobacco user Tobacco use type: Cigarette (quit 7 years ago) e-Cigarette/Vaping Use: Never Used service: No Current occupational status: employed Cognitive needs: No Hearing needs: No Vision needs: Yes Review of Systems Const All systems reviewed & are unremarkable except as noted in HPI and below Card Denies chest pain and Denies dyspnea Resp Denies dyspnea GI Reports abdominal pain, Denies heartburn, Reports loose stools, Reports nausea and Reports vomiting Psych Reports anxiety Physical Exam Vital Signs: Last Vital Signs Pulse 91 01/20/23 13:52 BP 128/74 01/20/23 13:52 Const General: cooperative, healthy appearing, comfortable and no acute distress Orientation/consciousness: patient oriented x3 Limitations: no limitations Eyes Sclerae: sclerae normal Resp Effort & Inspection: normal respiratory effort and able to speak in complete sentences Auscultation: clear to auscultation bilaterally, no rales, no rhonchi and no wheezes Cardio Rate: regular rate Rhythm: regular rhythm Heart sounds: S1 normal heart sound present and S2 normal heart sound present GI Palpation (GI): Soft to palpation and nontender Auscultation: normal bowel sounds Skin General skin exam: no rashes or lesions noted Neuro General: patient oriented x3 Extrem General: Yes full ROM Psych Appearance: grossly normal and well kempt Mental Status: mental status grossly normal Speech and movement: Normal speech and movement present and Clear speech present Affect: normal affect Attitude: cooperative Thought process: Normal thought process present Thought content: Normal thought content present Insight: Good insight present (Psych) Judgement: Good judgement present (Psych) Assessment & Plan Assessment & Plan (1) Chronic diarrhea: Comment: bloating, R/O celiac Reviewed labs no anemia Code(s): K52.9 - Noninfective gastroenteritis and colitis, unspecified Plan: EGD colonoscopy-r/o CD, infectious or chronic cause Plan EGD colonoscopy-r/o CD, infectious or chronic cause MG prep Orders: Orders Colonoscopy - GI Use Only 01/20/23 Z12.11 - Encounter for screening for malignant neoplasm of colon EDG - GI Use Only 01/20/23 K52.9 - Noninfective gastroenteritis and colitis, unspecified Medications: New polyethylene glycol 3350 (Miralax) Take as directed by mouth the day before your procedure. 238 grams PO ONCE 1 day PRN 238 grams 0RF laxative effect bisacodyl (Dulcolax (bisacodyl)) Day before procedure, prep day Take 4 tablets by mouth upon awakening followed by large glass of water 20 mg (4 x 5 mg) PO ONCE 1 day 4 tabs 0RF colonoscopy prep Z12.11 - Encounter for screening for malignant neoplasm of colon Patient Instructions: A very pleasant 48-year-old female referred for index screening colonoscopy presents with chronic loose stool, abdominal bloating EGD/ colon- Discussed procedures, risks, need for escorted due to anesthesia MiraLax Gatorade prep reviewed, literature given Coding Level of Care Code New Pt Level 3 (30066) Diagnoses Chronic diarrhea K52.9 Time Spent (min) 30
[2023-01-20 13:52] VITALS: BP 128/74; PULSE 91
== END 2023-01-20 15:13 | disposition home or self-care (01) ==
PROVIDERS: PCP Internal Medicine; Visit Provider Physician Assistant
DX: K52.9 Noninfective gastroenteritis and colitis, unspecified (principal)
CPT/HCPCS: 99203

== ENCOUNTER → 2023-01-20 13:35 | Outpatient (BNVA) | payer OTHER, SELFPAY | PROVIDERS: PCP Internal Medicine; Visit Provider Physician Assistant ==

== ENCOUNTER 2023-01-22 13:26 | Outpatient (AMB) | payer OTHER, SELFPAY ==
[2023-01-22 13:34] VITALS: BP 126/82; PULSE 77; O2SAT 98
--- NOTE | 2023-01-22 13:34 | MHC.PC.OV ---
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 Accompanied by: Self / Same As Patient Allergies insect venom [insect bites] Allergy (Verified 01/26/23 20:57) Anaphylaxis Penicillins Allergy (Verified 01/26/23 20:57) Anaphylaxis codeine Adverse Reaction (Intermediate, Verified 01/26/23 20:57) hyperactivity Medication List - Last Reconciled 01/26/23 by Jd Norwood MD bisacodyl (Dulcolax (bisacodyl)) 20 mg (4 x 5 mg) PO ONCE 1 day bupropion HCl 300 mg PO DAILY multivitamin 1 tab PO DAILY naproxen sodium (Aleve) 220 mg PO BID PRN polyethylene glycol 3350 (Miralax) 238 grams PO ONCE PRN 1 day Tobacco use date assessed: 01/22/23 Dental Screening Dental Screen Date: 01/22/23 Did you have a dental visit in the last 12 months?: Yes Did you have a dental problem in the last 6 months where you did not have access to dental care?: No Was dental information given to patient?: Patient has dentist HPI [facility] [place]06 Leg numbness HPI Details Patient comes in today for her [facility] follow up visit She went to the ER a couple of weeks ago for recurrent left hip pain that radiates down her thigh at times but does not extend into the knee She denies any recent injury or trauma to her left hip Workups done in the ER, including labs, abdominal and pelvic CT as well as CT of the left femur with IV contrast all came back normal/negative Her inflammatory markers, including sed rate, CPK and CRP were also normal although her abdominal and pelvic CT did reveal the presence of multiple uterine masses, likely fibroids She was eventually sent home with some prescriptions for Morphine 50 mg tablet and Cyclobenzaprine 5 mg tablets to take for symptomatic relief for now and she was instructed to follow-up with her PCP as soon as possible Patient states that her left hip pain has since subsided but her left thigh no feels constantly numb She denies any weakness of her left lower extremity - states that she even went for a bicycle ride this morning and was feeling fine with no increased left hip pain or leg pain or weakness No other acute complaints or symptoms are noted [facility] Medical History (Updated 01/26/23 @ 21:16 by Jd Norwood MD) Depression Chronic diarrhea Surgical History History of knee surgery Family History Mother Cardiovascular disease Father COPD (chronic obstructive pulmonary disease) Heart attack Congenital heart failure Social History Household Members Other:: Housing: House Alcohol intake: former Patient Tobacco Use Status: Former Tobacco user Tobacco use type: Cigarette (quit 7 years ago) e-Cigarette/Vaping Use: Never Used service: No Current occupational status: employed Cognitive needs: No Hearing needs: No Vision needs: Yes Questionnaire PHQ-9 Over the last 2 weeks, how often have you been bothered by any of the following problems? 1. Little interest or pleasure in doing things: not at all 2. Feeling down, depressed, or hopeless: not at all 3. Trouble falling or staying asleep, or sleeping too much: not at all 4. Feeling tired or having little energy: not at all 5. Poor appetite or overeating: not at all 6. Feeling bad about yourself - or that you are a failure or have let yourself or your family down: not at all 7. Trouble concentrating on things, such as reading the newspaper or watching television: not at all 8. Moving or speaking so slowly that other people could have noticed. Or the opposite - being so fidgety or restless that you have been moving around a lot more than usual: not at all 9. Thoughts that you would be better off or of hurting yourself in some way: not at all Total score: 0 Depression Screening Interpretation: Negative (is on Rx for depression) Depression Screening Done: Yes 09801 - PHQ-9 Billing: Yes Source: Developed by Drs. Ventura Harris, Katelyn Hines, Kian Tabor and colleagues, with an educational sreedhar from [employer]. Thrive Questionnaire Date Thrive assessed: 01/22/23 I am a: Patient What is your living situation today?: I have a steady place to live Within the past 12 months, did the food you bought not last and you didn't have the money to get more?: Never true Within the past 12 months, did you worry whether your food would run out before you got money to buy more?: Never true Do you have trouble paying for medicines?: No Do you have trouble getting transportation to medical appointments?: No Do you have trouble paying your heating and electricity bill?: No Do you have trouble taking care of your child, family member or friend?: No Do you have trouble with day-to-day activities such as bathing, preparing meals, shopping, managing finances, etc.?: No Are you currently unemployed and looking for a job?: No Are you interested in more education?: No Please select the resources that you would like help with: None Currently or been in a relationship where the following occur: no concerns reported AUDIT C Alcohol Use Questionnaire (AUDIT-C) 1. How often do you have a drink containing alcohol?: Never 3. How often do you have six or more drinks on one occasion?: Never Total Score: 0 Score Reviewed/Action Taken: Yes LILLIE-7 AMB Questionnaire LILLIE-7 Date LILLIE - 7 assessed: 01/22/23 Feeling nervous, anxious, or on edge: 0 = Not at all Not being able to stop or control worryin = Not at all Worrying too much about different things: 0 = Not at all Trouble relaxin = Not at all Being so restless that it is hard to sit still: 0 = Not at all Becoming easily annoyed or irritable: 0 = Not at all Feeling afraid as if something awful might happen: 0 = Not at all Total LILLIE-7 score (0-4 normal; 5-9 mild; 10-14 moderate; 15-21 severe): 0 Source: Developed by Drs. Ventura Harris, Katelyn Hines, Kian Tabor and colleagues, with an educational sreedhar from [employer]. LILLIE-7 Assessment Billing LILLIE-7 Assessment Tool: LILLIE-7 Assessment 97270 Review of Systems Const Denies chills, Denies fatigue, Denies fever(s) and Denies headache(s) ENT Denies dysphagia, Denies dizziness, Denies otalgia, Denies headache(s), Denies neck pain, Denies odynophagia and Denies sore throat Card Denies chest pain, Denies palpitations and Denies dyspnea Resp Denies cough and Denies dyspnea GI Denies abdominal pain, Denies constipation, Denies dysphagia, Denies heartburn, Denies diarrhea, Denies nausea, Denies odynophagia and Denies vomiting Denies difficulty voiding, Denies nocturia and Denies dysuria Musc Denies neck pain and Reports numbness (over the anterior aspect of the left thigh - persistent/constant) Neuro Denies dizziness, Denies headache(s) and Reports numbness (over the anterior aspect of the left thigh - persistent/constant) Endo Denies fatigue and Denies palpitations Physical exam (Primary Care) Vital Signs: Last Vital Signs Pulse 77 01/22/23 13:34 BP 126/82 01/22/23 13:34 Pulse Ox 98 01/22/23 13:34 Oxygen Delivery Method Room Air 01/22/23 13:34 Tobacco/Smoking Status: Tobacco use Status Tobacco use date assessed 01/22/23 01/22/23 13:42 Patient Tobacco Use Status Former Tobacco user 01/22/23 13:42 Tobacco use type Cigarette (quit 7 years ago) 01/22/23 13:42 e-Cigarette/Vaping Use Never Used 01/22/23 13:42 PHQ-9: PHQ-9 Score PHQ-9: Total score 0 01/22/23 14:10 Depression Screening Interpretation: Negative (is on Rx for depression) Thrive Assessment: Date of Thrive Assessment Date Thrive assessed 01/22/23 01/22/23 13:42 Currently or been in a relationship where the following occur: no concerns reported Const General: no acute distress and alert Orientation/consciousness: patient oriented x3 Neck Neck: Yes no lymphadenopathy and Yes supple Resp Auscultation: clear to auscultation bilaterally, no rales and no wheezes Cardio Rate: regular rate Rhythm: regular rhythm Heart sounds: no murmurs GI Palpation (GI): Soft to palpation, nontender and No hepatosplenomegaly present Neuro General: patient oriented x3 Extrem General: Yes no clubbing, cyanosis or edema Left lower extremity: hip/thigh Details: normal ROM; no tenderness Assessment and Plan Assessment & Plan (1) Numbness of right anterior thigh: Code(s): R20.0 - Anesthesia of skin Plan: Suspect/discussed that her left thigh symptoms may be due to some variation of meralgia paresthetica Will send patient for NCV & EMG of the left lower extremity PRUDENCE for further evaluation (2) Uterine fibroid: Code(s): D25.9 - Leiomyoma of uterus, unspecified Qualifiers: Uterine leiomyoma location: unspecified location Qualified Code(s): D25.9 - Leiomyoma of uterus, unspecified Plan: These were seen incidentally on abdominal and pelvic CT done at the ER a couple of weeks ago She is advised to follow up with her OB-Team Leader/Research Psychologist regarding these as soon as possible (3) Depression: Code(s): F32.A - Depression, unspecified Qualifiers: Depression Type: unspecified Qualified Code(s): F32.A - Depression, unspecified Plan: Continue Bupropion ER 50 mg QD Plan Follow up with PCP as scheduled in April 2023 Orders: Orders NE nerve conduction velocity 01/22/23 R20.0 - Anesthesia of skin NE electromyogram (EMG) 01/22/23 R20.0 - Anesthesia of skin, R20.2 - Paresthesia of skin Coding Level of Care Code Est Pt Level 3 (13039) Diagnoses Numbness of right anterior thigh R20.0 Uterine leiomyoma, unspecified location D25.9 Uterine leiomyoma location: unspecified location Depression, unspecified depression type F32.A Depression Type: unspecified Additional Codes LILLIE-7 Assessment Billing - LILLIE-7 Assessment Tool: LILLIE-7 Assessment [id number] ([id number])
== END 2023-01-22 14:11 | disposition home or self-care (01) ==
PROVIDERS: PCP Internal Medicine; Visit Provider Internal Medicine
DX: R20.0 Anesthesia of skin (principal); D25.9 Leiomyoma of uterus, unspecified; F32.A Depression, unspecified
CPT/HCPCS: 99213

== ENCOUNTER 2023-03-06 14:50 | Outpatient (REF) | payer OTHER, SELFPAY ==
--- NOTE | 2023-03-06 14:52 | EMG_ITS ---
Chief complaint: Sudden onset left lateral hip pain last December, 2 months ago. This has evolved into a numbing sensation on left lateral thigh. Pain has gone away. Denies any back or buttocks pain. Denies any weakness. No footdrop on exam. Reason for referral: Evaluate for radiculopathy or neuropathy Referred by: Dr. Norwood Procedure done: LLE NCS/EMG Precautions and/or limitations: None The limb temperature was monitored continuously and remained between 32-36 degrees C during the performance of the NCS. Nerve Conduction Studies Anti Sensory Summary Table ?Stim Site NR Onset (ms) Norm Onset (ms) Peak (ms) Norm Peak (ms) O-P Amp (?V) Norm O-P Amp Site1 Site2 Delta-0 (ms) Dist (cm) Herber (m/s) Norm Herber (m/s) Left Sural Anti Sensory (Lat Mall) Calf ? 3.4 4.1 <4.0 9.5 >5.0 Calf Lat Mall 3.4 14.0 41 Motor Summary Table ?Stim Site NR Onset (ms) Norm Onset (ms) O-P Amp (mV) Norm O-P Amp iAmp (mV) Amp (1st) (%) Site1 Site2 Delta-0 (ms) Dist (cm) Herber (m/s) Norm Herber (m/s) Left Peroneal Motor (Ext Dig Brev) Ankle ? 3.9 <4.0 4.1 >2.5 4.7 100.0 Ankle Ext Dig Brev 3.9 0.0 B Fib ? 10.8 3.1 3.6 75.6 B Fib Ankle 6.9 33.0 48 >40 Poplt ? 11.3 4.4 4.9 107.3 Poplt B Fib 0.5 4.5 90 >40 Left Tibial Motor (Abd Landeros Brev) Ankle ? 5.0 <5 28.2 >2.5 41.5 100.0 Ankle Abd Landeros Brev 5.0 0.0 Knee ? 11.9 20.9 33.5 74.1 Knee Ankle 6.9 41.0 59 >40 EMG ?Side Muscle Nerve Root Ins Act Fibs Psw Amp Dur Poly Recrt Int Pat Comment Left AntTibialis Dp Br Peron L4-5 Nml Nml Nml Nml Nml 0 Nml Complete Left PostTibialis Tibial L5, S1 Nml Nml Nml Nml Nml 0 Nml Complete Left MedGastroc Tibial S1-2 Nml Nml Nml Nml Nml 0 Nml Complete Left VastusMed Femoral L2-4 Nml Nml Nml Nml Nml 0 Nml Complete Left BicepsFemS Sciatic L5-S1 Nml Nml Nml Nml Nml 0 Nml Complete Left GluteusMed SupGluteal L4-S1 Nml Nml Nml Nml Nml 0 Nml Complete Paraspinal EMG ?Side Muscle Nerve Root Ins Act Fibs Psw Comment Left Lumbar Upper Rami Nml Nml Nml Left Lumbar Mid Rami Nml Nml Nml Left Lumbar Lower Rami Nml Nml Nml FINDINGS: All motor and sensory nerves tested showed normal latencies, amplitudes and conduction velocities. Concentric needle EMG was performed in selected muscles of the left lower extremity and lumbar paraspinals. Study did not reveal signs of electric abnormalities as shown in the table below. IMPRESSION: 1. This is a normal study. 2. There is no electrodiagnostic evidence for peroneal neuropathy, tibial neuropathy, lumbosacral plexopathy, lumbar radiculopathy, or peripheral neuropathy. Thank you for your kind referral. Joan Means MD, ZOHREH Board Certified, [place] Board of Physical Medicine and Rehabilitation (ABPMR) Board Certified, [place] Board of Electrodiagnostic Medicine (ABEM) [place] [id number] [facility]
== END 2023-03-06 14:51 | disposition home or self-care (01) ==
LOC: HO.NEURO 14:50
PROVIDERS: PCP Internal Medicine; Visit Provider Internal Medicine
DX: R20.0 Anesthesia of skin (principal); R20.2 Paresthesia of skin
CPT/HCPCS: 95886; 95908

== ENCOUNTER → 2023-03-06 14:52 | Outpatient (BNV) | payer OTHER, SELFPAY | PROVIDERS: PCP Internal Medicine; Visit Provider Physical Medicine & Rehabilitation | DX: R20.2 Paresthesia of skin (principal); M25.552 Pain in left hip | CPT/HCPCS: 95886; 95908 ==

== ENCOUNTER 2023-05-01 10:53 | Outpatient (AMB) | payer OTHER, SELFPAY ==
[2023-05-01 10:56] VITALS: BP 120/82
--- NOTE | 2023-05-01 10:56 | MHC.PC.OV ---
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 Accompanied by: Self / Same As Patient Allergies insect venom [insect bites] Allergy (Verified 05/01/23 10:59) Anaphylaxis Penicillins Allergy (Verified 05/01/23 10:59) Anaphylaxis codeine Adverse Reaction (Intermediate, Verified 05/01/23 10:59) hyperactivity Medication List - Last Reconciled 05/01/23 by Hoa Salgado MD bupropion HCl 300 mg PO DAILY semaglutide 2 mg subcut QWEEK Tobacco use date assessed: 05/01/23 Dental Screening Dental Screen Date: 05/01/23 Did you have a dental visit in the last 12 months?: Yes Did you have a dental problem in the last 6 months where you did not have access to dental care?: No Was dental information given to patient?: Patient has dentist HPI HPI Comments History of Present Illness Details This is 48-year-old female with mild major depression, obesity, and meralgia paresthetica that comes for follow-up on her conditions. Depression has been stable with bupropion and this is follow by Psychiatry. She is obese with a BMI of 30 and has intentionally lost weight buying semaglutide online. Went to the hospital due to left hip pain that radiated to thigh and had CT of the femur which was normal and she said that has improved but still has left lateral thigh numbness and tingling most likely due to meralgia paresthetica. Nerve conduction study was normal and patient is aware of results. Was recommended to not wear tight belt in her waist Had CT scan of abdomen and pelvis also showing right kidney stone and patient is aware. Will have ultrasound of kidneys to see if calculus is still there. Recommended to drink about 2 L of water per day with a Lyme. Denies any chest pain or shortness of breath. As per patient she inhaled cocaine once in her 20s and I will order hepatitis C. [facility] Medical History (Updated 05/01/23 @ 11:28 by Hoa Salgado MD) Class 1 obesity with body mass index (BMI) of 33.0 to 33.9 in adult Depression Chronic diarrhea Surgical History History of knee surgery Family History Mother Cardiovascular disease Father COPD (chronic obstructive pulmonary disease) Heart attack Congenital heart failure Family/Other Mental health disorder Substance use disorder Social History Household Members Other:: Housing: House Alcohol intake: former Patient Tobacco Use Status: Former Tobacco user Tobacco use type: Cigarette (quit 7 years ago) e-Cigarette/Vaping Use: Never Used service: No Current occupational status: employed Current occupational exposures/hazards: No Cognitive needs: No Hearing needs: No Vision needs: Yes Questionnaire PHQ-9 Over the last 2 weeks, how often have you been bothered by any of the following problems? 1. Little interest or pleasure in doing things: not at all 2. Feeling down, depressed, or hopeless: not at all 3. Trouble falling or staying asleep, or sleeping too much: not at all 4. Feeling tired or having little energy: not at all 5. Poor appetite or overeating: not at all 6. Feeling bad about yourself - or that you are a failure or have let yourself or your family down: not at all 7. Trouble concentrating on things, such as reading the newspaper or watching television: not at all 8. Moving or speaking so slowly that other people could have noticed. Or the opposite - being so fidgety or restless that you have been moving around a lot more than usual: not at all 9. Thoughts that you would be better off or of hurting yourself in some way: not at all Total score: 0 Depression Screening Interpretation: Negative Depression Screening Done: Yes 68921 - PHQ-9 Billing: Yes Source: Developed by Drs. Ventura Harris, Katelyn Hines, Kian Tabor and colleagues, with an educational sreedhar from [employer]. Thrive Questionnaire Date Thrive assessed: 05/01/23 I am a: Patient What is your living situation today?: I have a steady place to live Within the past 12 months, did the food you bought not last and you didn't have the money to get more?: Never true Within the past 12 months, did you worry whether your food would run out before you got money to buy more?: Never true Do you have trouble paying for medicines?: No Do you have trouble getting transportation to medical appointments?: No Do you have trouble paying your heating and electricity bill?: No Do you have trouble taking care of your child, family member or friend?: No Do you have trouble with day-to-day activities such as bathing, preparing meals, shopping, managing finances, etc.?: No Are you currently unemployed and looking for a job?: No Are you interested in more education?: No Please select the resources that you would like help with: None Currently or been in a relationship where the following occur: no concerns reported THRIVE Score: 0 AUDIT C Alcohol Use Questionnaire (AUDIT-C) 1. How often do you have a drink containing alcohol?: Never Total Score: 0 LILLIE-7 AMB Questionnaire LILLIE-7 Date LILLIE - 7 assessed: 05/01/23 Feeling nervous, anxious, or on edge: 0 = Not at all Not being able to stop or control worryin = Not at all Worrying too much about different things: 0 = Not at all Trouble relaxin = Not at all Being so restless that it is hard to sit still: 0 = Not at all Becoming easily annoyed or irritable: 0 = Not at all Feeling afraid as if something awful might happen: 0 = Not at all Total LILLIE-7 score (0-4 normal; 5-9 mild; 10-14 moderate; 15-21 severe): 0 Source: Developed by Drs. Ventura Harris, Katelyn Hines, Kian Tabor and colleagues, with an educational sreedhar from [employer]. LILLIE-7 Assessment Billing LILLIE-7 Assessment Tool: LILLIE-7 Assessment [id number] Review of Systems Const All systems reviewed & are unremarkable except as noted in HPI and below Eyes Reports no additional complaints, Denies change in vision and Denies other visual disturbances Card Denies chest pain at rest, Denies chest pain with activity, Denies edema, Denies irregular heart rhythm, Denies claudication, Denies dyspnea, Denies dyspnea on exertion, Denies orthopnea, Denies paroxysmal nocturnal dyspnea and Denies slow heart rate Resp Denies cough, Denies dyspnea and Denies dyspnea on exertion GI Denies abdominal pain, Denies change in bowel habits, Denies excessive flatus, Denies nausea and Denies vomiting Denies urinary incontinence, Denies urinary hesitancy and Denies urinary urgency Musc Denies abnormal gait, Denies atrophy, Denies deformity and Denies limited range of motion Skin/Breast Denies bleeding lesions, Denies changing lesions and Denies rash Neuro Denies abnormal gait, Denies behavioral changes and Denies lack of coordination Psych Denies behavioral changes Physical exam (Primary Care) Vital Signs: Last Vital Signs BP 120/82 05/01/23 10:56 BMI result Body Mass Index 30.0 Tobacco/Smoking Status: Tobacco use Status Tobacco use date assessed 05/01/23 05/01/23 11:04 Patient Tobacco Use Status Former Tobacco user 05/01/23 11:04 Tobacco use type Cigarette (quit 7 years ago) 05/01/23 11:04 e-Cigarette/Vaping Use Never Used 05/01/23 11:04 PHQ-9: PHQ-9 Score PHQ-9: Total score 0 05/01/23 11:05 Depression Screening Interpretation: Negative Thrive Assessment: Date of Thrive Assessment Date Thrive assessed 05/01/23 05/01/23 11:05 Currently or been in a relationship where the following occur: no concerns reported Eyes General: appearance normal, both eyes and all related structures Eyelids: Yes eyelids normal Conjunctivae: conjunctivae normal Neck Neck: Yes normal visual inspection and Yes supple Resp Effort & Inspection: normal respiratory effort Auscultation: clear to auscultation bilaterally Cardio Jugular venous distension: no JVD Rate: regular rate Rhythm: regular rhythm Heart sounds: S1 normal heart sound present and S2 normal heart sound present Extrem General: Yes full ROM Assessment and Plan Assessment & Plan (1) Mild major depression: Code(s): F32.0 - Major depressive disorder, single episode, mild Plan: Continue bupropion. Follow-up with psychiatry. (2) Nephrolithiasis: Code(s): N20.0 - Calculus of kidney Plan: Ultrasound of the kidneys ordered. Advised to drink large amounts of water with Lyme. (3) Meralgia paresthetica: Code(s): G57.10 - Meralgia paresthetica, unspecified lower limb Plan: Advised to not wear tight belt in her waist. (4) Obesity (BMI 30-39.9): Code(s): E66.9 - Obesity, unspecified Plan: Continue semaglutide. Advised to do diet and exercise. BMI goal is less than 30. Orders: Orders Comprehensive [place]. Panel Fast Today N20.0 - Calculus of kidney Hepatitis C Antibody Today Z20.5 - Contact with and (suspected) exposure to viral hepatitis US renal BI Today N20.0 - Calculus of kidney Coding Level of Care Code Est Pt Level 4 (50578) Diagnoses Mild major depression F32.0 Nephrolithiasis N20.0 Meralgia paresthetica G57.10 Obesity (BMI 30-39.9) E66.9 Additional Codes LILLIE-7 Assessment Billing - LILLIE-7 Assessment Tool: LILLIE-7 Assessment [id number] ([id number]) Time Spent (min) 23
== END 2023-05-01 11:26 | disposition home or self-care (01) ==
PROVIDERS: PCP Internal Medicine; Visit Provider Internal Medicine
DX: N20.0 Calculus of kidney (principal); F32.0 Major depressive disorder, single episode, mild; E66.9 Obesity, unspecified; Z68.30 Body mass index [BMI] 30.0-30.9, adult; G57.10 Meralgia paresthetica, unspecified lower limb
CPT/HCPCS: 99214

== ENCOUNTER 2023-05-27 08:37 | Outpatient (REF) | payer OTHER, SELFPAY ==
--- NOTE | ~2023-05-27 | US_ITS ---
EXAMINATION: US RETROPERITONEAL LIMITED (RENAL ONLY) CLINICAL INFORMATION: Calculus of kidney. COMPARISON: CT abdomen and pelvis 01/05/2023. TECHNIQUE: Real-time imaging of the kidneys. FINDINGS: RIGHT KIDNEY: 11.8 x 4.7 x 5.7 cm (SAG x AP x TRV). The kidney is normal in size, contour, and echogenicity. Renal cortical thickness is normal. No calculi or focal parenchymal lesions. No hydronephrosis. Mild pelvic fullness versus extrarenal pelvis. LEFT KIDNEY: 11.0 x 5.4 x 5.3 cm (SAG x AP x TRV). The kidney is normal in size, contour, and echogenicity. Renal cortical thickness is normal. No calculi or focal parenchymal lesions. No hydronephrosis. US/US renal BI IMPRESSION: 1. No nephrolithiasis or hydronephrosis. 2. Mild right renal pelvic fullness versus extrarenal pelvis.
[2023-05-27 09:54] LABS: Alanine Aminotransferase 9 U/L (0-31); Albumin Level 4.1 g/dL (3.5-5.0); Alkaline Phosphatase 43 U/L (39-117); Anion Gap 11 (12-20); Aspartate Amino Transferase 11 U/L (5-31); Bilirubin Total 0.4 mg/dL (0.0-1.0); Blood Urea Nitrogen 12 mg/dL (9-16); Carbon Dioxide 25 mmol/L (22-29); Chloride 107 mmol/L (96-108); Estimated Glomerular Filt Rate > 60; Glucose Fasting 88 mg/dL (60-99); Sodium 139 mmol/L (135-145); Total Protein 7.2 g/dL (6.5-8.0)
[2023-05-27 10:13] LABS: ~Hepatitis C Antibody Nonreactive (Nonreactive)
== END 2023-05-27 08:38 | disposition home or self-care (01) ==
LOC: HO.US 08:37
PROVIDERS: PCP Internal Medicine; Visit Provider Internal Medicine
DX: N20.0 Calculus of kidney (principal); Z20.5 Contact with and (suspected) exposure to viral hepatitis
CPT/HCPCS: 36415; 76775; 80053; 86803

== ENCOUNTER 2023-05-29 11:56 | Day surgery (SDC) | payer OTHER, SELFPAY ==
[2023-05-29 12:07] VITALS: BP 120/71; PULSE 87; RESP 19; TEMP 36.1; O2SAT 97; BMI 29.1
[2023-05-29 12:19] LABS: UPreg QC Valid YES; Urine Pregnancy NEGATIVE (NEGATIVE)
[2023-05-29] MEDS: Lactated Ringers 1,000 ML 50 ML IVCONT (12:33)
--- NOTE | 2023-05-29 12:38 | P.CONAN_ITS ---
FORMERLY [facility], [facility] Active Problems Active Problems: All Active Problems (Updated 05/01/23 @ 11:28 by Hoa Salgado MD) Obesity (BMI 30-39.9) (Acute) Meralgia paresthetica (Acute) Nephrolithiasis (Acute) Uterine fibroid (Acute) Chronic diarrhea (Acute) Depression (Acute) Numbness of right anterior thigh (Acute) Chest pain (Acute) Physical exam (Acute) Mild major depression (Acute) Past Medical History Medical History (Updated 05/01/23 @ 11:28 by Hoa Salgado MD) Class 1 obesity with body mass index (BMI) of 33.0 to 33.9 in adult Depression Chronic diarrhea Family History Family History Mother Cardiovascular disease Father COPD (chronic obstructive pulmonary disease) Heart attack Congenital heart failure Family/Other Mental health disorder Substance use disorder Family history of problems with anesthesia: No Surgical History Surgical History History of knee surgery History of Problems with Anesthesia: No Social History Social History Household Members Other:: Housing: House Alcohol intake: former Patient Tobacco Use Status: Former Tobacco user Tobacco use type: Cigarette (quit 7 years ago) e-Cigarette/Vaping Use: Never Used Are you DNR?: No Advance Directives: No Advance Directives Information Provided: Yes Patient : No FDLMP: last week service: No Current occupational status: employed Current occupational exposures/hazards: No Cognitive needs: No Hearing needs: No Vision needs: Yes Meds Allergies Allergy/AdvReac Type Severity Reaction Status Date / Time insect venom [insect bites] Allergy Anaphylaxis Verified 05/01/23 10:59 Penicillins Allergy Anaphylaxis Verified 05/01/23 10:59 codeine AdvReac Intermediate hyperactivi Verified 05/01/23 10:59 ty Active Medications: Current Medications Lactated Ringer's (Lr) 1,000 mls @ 50 mls/hr IVCONT .Q20H ESTEVAN Last Admin: 05/29/23 12:33 Dose: 50 mls/hr Home Medications Medication Instructions Recorded Confirmed Last Taken Type bupropion HCl 300 mg 24 hr tablet, 300 mg PO DAILY 10/29/22 05/01/23 Unknown History extended release semaglutide 2 mg/dose (8 mg/3 mL) 2 mg subcut QWEEK 05/01/23 05/01/23 05/18/23 History subcutaneous pen injector Exam Height,Weight and Vital Signs: Height 5 ft 5 in Weight 79.288 kg Last Vital Signs Temp 97 F 05/29/23 12:07 Pulse 87 05/29/23 12:07 Resp 19 05/29/23 12:07 BP 120/71 05/29/23 12:07 Pulse Ox 97 05/29/23 12:07 O2 Del Method Room Air 05/29/23 12:07 Pertinent Lab Results Pertinent Lab Results: Laboratory Tests 05/29/23 12:02 Urine Test NEGATIVE Airway Mallampati Class: II TM Dist: >3cm Neck ROM: Full Loose/Missing/Broken Teeth: No Heart: rrr Lungs: cta b/l Assessment and Plan Assessment Anesthesia Assessment: Anesthesia Plan Discussed and Chart Reviewed Final Anesthetic Review Family History of Problems with Anesthesia: No History of Problems with Anesthesia: No NPO: Yes ASA Class: II Final Preanesthetic Review: No Changes in Pt Med Stat, Meds/Allgs Chart Reviewed, Consent Obtained/Reviewed and Anes Risks/Benef Reviewed Patient Risk: Intermediate Procedure Risk: Intermediate Anesthetic Plan Anesthetic Plan: MAC: Disposition: Standard PACU
--- NOTE | 2023-05-29 13:50 | MHC.SHP ---
Pre-Procedural Eval Section A - 24 Hr Update-Section A only Date of Service: 05/29/23 Section B - Complete if H&P > 30 days Chief Complaint: Epigastric pain, diarrhea Relevant Family History (Specify if Yes): No Present Medications: see Short Stay Collaborative assessment Medical History: No relevant PMH History of Previous Operations: No relevant previous surgery Allergies: Allergies Allergy/AdvReac Type Severity Reaction Status Date / Time insect venom [insect bites] Allergy Anaphylaxis Verified 05/01/23 10:59 Penicillins Allergy Anaphylaxis Verified 05/01/23 10:59 codeine AdvReac Intermediate hyperactivi Verified 05/01/23 10:59 ty Review of Systems Review of Systems Comment: Ten point ROS negative Exam Exam Comment: Gen appear: No acute distress HEENT: no icterus Chest: No overt resp distress Abd: soft, nontender, nondistended Psych: Stable affect, answering questions appropriately Neuro: A/Ox3 noted to move all extremities spontaneously Ext: no peripheral edema Plan Diagnosis/Plan: Unchanged I have reviewed the history and physical and performed a pertinent physical examination on my patient. No changes have occurred unless specified. Time Spent With Patient Time: Total time managing care of this patient today ____ minutes.
--- NOTE | 2023-05-29 13:51 | P.OP_ITS ---
Operative Note Operative Note Date of Service: 05/29/23 Narrative: Procedure: Upper endoscopy and colonoscopy Indication: Epigastric pain, changes in bowel habits Endoscopist: Yesica Marrufo MD Anesthesia Provider: Carlos A Marion CRNA Anesthesia type: MAC Instrument: Olympus [id number]-[id number] ?? EGD Procedure:?? The procedure, indications, preparation and potential complications were reviewed with the patient, who indicated understanding and gave written informed consent to proceed. A physical exam was performed. The endoscope was introduced through the mouth, and advanced to the duodenum. The mucosa was carefully examined on slow withdrawal of the endoscope. The patient tolerated the procedure well. There were no immediate complications.? ? EGD Findings:? * Esophagus:? Normal esophageal mucosa. The Z line was at 37 cm. Lower esophageal biopsies were taken and sent for histology. * Stomach:? Scattered erosions in the body of the stomach. Retroflexion was performed in the cardia that showed a small hiatal hernia. Random cold forceps biopsies were taken to rule out H Pylori. * Duodenum: Normal duodenal mucosa to the extent visualised. Cold forceps biopsies were taken from the duodenal bulb and 2nd portion of the duodenal to rule out celiac sprue. Colonoscopy Procedure: The patient was then turned for the colonoscopy. A digital rectal exam was performed which was abnormal for ext hemorrhoids. A distal attachemnt cap was affixed to the tip of the scope which was then inserted through the anus and advanced through the colon to the cecum at 70 cm and terminal ileum. Appendiceal orifice and ileocecal valve were identified. Mucosa was carefully examined under high definition white light as the instrument was slowly withdrawn in a retrograde panoramic fashion. Retroflexion was performed in the rectum. The procedure was not difficult. There were no immediate obvious complications. The quality of the prep was BBPS: 3+3+3 = Excellent Limitations: No limitations Colonoscopy Findings: Mucosa: Normal to cecum and terminal ileum. Cold forceps biopsies were taken from right and left colon to rule out microscopic colitis. Protruding lesions: * 1 sessile polyp of size 2 mm was noted in the proximal transverse colon. Cold forceps polypectomy was performed and the polyp was removed and retrieved. * Small internal hemorrhoids Impressions:? * Normal esophagus (biopsy) * Hiatal hernia * Gastritis (biopsy) * Normal duodenum (biopsy) * Transverse colon polyp * Hemorrhoids Recommendations: - Follow path results - Avoid NSAIDs - Start omeprazole 20mg PO once daily x 8 weeks - If H pylori positive, pt will need treatment - Repeat colonoscopy in 7-10 years
[2023-05-29 14:30] VITALS: BP 107/53; PULSE 80; RESP 12; TEMP 36.8; O2SAT 97
[2023-05-29 14:45] VITALS: BP 104/56; PULSE 64; RESP 16; O2SAT 100
== END 2023-05-29 15:17 | disposition home or self-care (01) ==
PROVIDERS: Anesthesiology; PCP Internal Medicine; Visit Provider Internal Medicine
PROC: (CPT 45380; principal; 2023-05-29 13:50)
DX: R19.4 Change in bowel habit (principal); D12.3 Benign neoplasm of transverse colon; K64.8 Other hemorrhoids; K64.4 Residual hemorrhoidal skin tags; K52.9 Noninfective gastroenteritis and colitis, unspecified; R10.13 Epigastric pain; K29.80 Duodenitis without bleeding; K29.50 Unspecified chronic gastritis without bleeding; K44.9 Diaphragmatic hernia without obstruction or gangrene; E66.8 Other obesity; Z79.899 Other long term (current) drug therapy; Z88.0 Allergy status to penicillin; Z88.5 Allergy status to narcotic agent; Z87.891 Personal history of nicotine dependence; Z79.85 Long-term (current) use of injectable non-insulin antidiabetic drugs
CPT/HCPCS: 45380; 43239; 81025; 88305; 88313; 88342; J2704

== ENCOUNTER → 2023-05-29 11:56 | Outpatient (BNV) | payer OTHER, SELFPAY | PROVIDERS: PCP Internal Medicine; Visit Provider Internal Medicine | DX: R19.4 Change in bowel habit (principal); D12.3 Benign neoplasm of transverse colon; K64.8 Other hemorrhoids; R10.13 Epigastric pain; K29.70 Gastritis, unspecified, without bleeding; K29.80 Duodenitis without bleeding | CPT/HCPCS: 43239; 45380 ==

== ENCOUNTER 2023-05-31 09:50 | Emergency (ER) | payer OTHER, SELFPAY ==
[2023-05-31 09:52] VITALS: BP 101/63; PULSE 82; RESP 16; TEMP 36.2; O2SAT 98; BMI 29.7
--- NOTE | 2023-05-31 10:44 | ED_ITS ---
HPI - Skin/Abscess/Foreign Bdy General Chief complaint: Skin/Abscess/Foreign Body Stated complaint: bump on buttocks Time Seen by Provider: 05/31/23 10:32 Source: patient Mode of arrival: ambulatory Limitations: no limitations History of Present Illness HPI narrative: 48 year old female with pmhx significant for MDD presents to the ED today for evaluation of bump on buttocks x2 days. Admits to having a colonoscopy 2 days ago. She then began to notice a bump along the top of her left buttock. States it is painful for her to sit down or lie on her back. She states that the area is hard, red and swollen. She denies any drainage from the area. Denies any recent tick or insect bites. Denies ever having something like this before. Denies fever, chills, back pain. Related Data Home Medications Medication Instructions Recorded Confirmed bupropion HCl 300 mg 24 hr tablet, 300 mg PO DAILY 10/29/22 05/01/23 extended release semaglutide 2 mg/dose (8 mg/3 mL) 2 mg subcut QWEEK 05/01/23 05/01/23 subcutaneous pen injector Previous Rx's Medication Instructions Recorded clindamycin HCl 300 mg capsule 300 mg PO TID 5 days #15 caps 05/31/23 doxycycline hyclate 100 mg capsule 100 mg PO BID 5 days #10 caps 05/31/23 morphine 10 mg capsule,extended 10 mg PO Q12H PRN pain (scale 05/31/23 release pellets score 7-10) #5 caps ondansetron 4 mg disintegrating 4 mg PO DAILY PRN nausea and 05/31/23 tablet vomiting 5 days #10 tabs Allergies Allergy/AdvReac Type Severity Reaction Status Date / Time insect venom [insect bites] Allergy Anaphylaxis Verified 05/01/23 10:59 Penicillins Allergy Anaphylaxis Verified 05/01/23 10:59 codeine AdvReac Intermediate hyperactivi Verified 05/01/23 10:59 ty Review of Systems Review of Systems: Constitutional: No fever, chills, fatigue, night sweats, weight changes ENT/Mouth: No ear pain, hearing loss, nasal congestion, sinus pain, rhinorrhea, sore throat Eyes: No eye pain, swelling, redness, vision changes, discharge Cardio: No chest pain, palpitations, PHILLIPS, orthopnea, peripheral edema Pulm: No SOB, cough, sputum, wheezing, dyspnea, hemoptysis GI: No nausea, vomiting, hematemesis, abdominal pain, diarrhea, constipation, hematochezia, melena : No irregular bleeding, dysuria, frequency, urgency, hesitancy, hematuria, flank pain, urinary flow changes, urinary incontinence or retention MSK: No back pain, neck pain, joint pain, myalgias Skin: No lesions, rashes, +bump to left buttock Neuro: No weakness, numbness, paresthesias, LOC, dizziness, headache Psych: No anxiety/panic, depression, SI/HI, AH/VH All other systems reviewed and are negative. [facility] Past Medical History Medical History (Updated 05/31/23 @ 11:03 by JAMIN Franco) Class 1 obesity with body mass index (BMI) of 33.0 to 33.9 in adult Depression Chronic diarrhea Surgical History (Updated 05/30/23 @ 09:06 by Chloe Law) History of esophagogastroduodenoscopy (EGD) Hx of colonoscopy History of knee surgery Family History Family History Mother Cardiovascular disease Father COPD (chronic obstructive pulmonary disease) Heart attack Congenital heart failure Family/Other Mental health disorder Substance use disorder Social History Social History Household Members Other:: Housing: House Alcohol intake: former Patient Tobacco Use Status: Former Tobacco user Tobacco use type: Cigarette (quit 7 years ago) e-Cigarette/Vaping Use: Never Used Advance Directives: No Advance Directives Information Provided: No service: No Current occupational status: employed Current occupational exposures/hazards: No Cognitive needs: No Hearing needs: No Vision needs: Yes Physical Exam Vital Signs: Vital Signs: Last Vital Signs Temp 97.3 F 05/31/23 11:25 Pulse 82 05/31/23 11:25 Resp 16 05/31/23 11:25 BP 101/63 05/31/23 11:25 Pulse Ox 98 05/31/23 09:52 O2 Del Method Room Air 05/31/23 09:52 BMI result Body Mass Index 29.7 Vital signs stable, afebrile Const: General: cooperative, healthy appearing, comfortable and no acute distress HEENT: Head: Yes normal to inspection, Yes normocephalic and Yes atraumatic Eyes: General: appearance normal, both eyes and all related structures Conjunctivae: conjunctivae normal Sclerae: sclerae normal Neck: Neck: Yes normal visual inspection Resp: Effort & Inspection: normal respiratory effort Skin: Other: + 2 cm x 1 cm raised area of induration noted to the left buttock approximately 5 cm laterally and 2 cm inferiorly to gluteal cleft. Area is warm. There is no palpable fluctuance that would warrant drainage. No pointing. Black punctum noted to center. ttp. Course Course Course Narrative: 1110-- I initially suspected pilonidal cyst however on initial examination, the area is more lateral to the gluteal cleft. This also more superior on the left buttock. Unfortunately, the areas indurated and I do not feel any area of fluctuance that would warrant drainage. I suspect possible infected epidermoid cyst. As it is red and indurated, will send doxycycline to pharmacy. I want to cover her with dual therapy however she has an anaphylactic reaction to penicillins thus I will not send Keflex to her pharmacy even though cross reaction is unlikely. I will send clindamycin instead. Discussed this with patient who is agreeable to this. Discussed worrisome signs and symptoms of when to return to the ED. Patient has remained stable throughout ED visit today. Discussed worrisome signs and symptoms and when to return to the ED. All questions answered at this time. Patient is agreeable with disposition and stable for discharge. Medical Decision Making Medical Decision Making [facility] Narrative: 48 year old female with pmhx significant for MDD presents to the ED today for evaluation of bump on buttocks x2 days. Vital signs stable, afebrile. She is nontoxic appearing in no acute distress. On exam, there is a 2 cm x 1 cm raised area of induration noted to the left buttock approximately 5 cm laterally and 2 cm inferiorly to gluteal cleft. Area is warm. There is no palpable fluctuance that would warrant drainage. No pointing. Black punctum noted to center. ttp. Differential diagnosis includes epididymal cyst, pilonidal cyst, cellulitis, abscess Plan for discharge with antibiotics. Differential Diagnosis Differential Diagnoses: The differential diagnosis associated with the presentation includes as above. External Record Review External record reviewed: Inpatient record, Office record, Outpatient record, Prior outpatient labs, Prior outpatient radiology, Primary care record and Outside ED record Prescription Management I considered prescription management with: Pain Medication, Antibiotic and Other (Antiemetic) Social Determinants Patient?s care significantly limited by Social Determinants of Health including: Other Social Determinant of Health Discharge Plan Discharge Clinical Impression: Epidermoid cyst, Cellulitis and abscess of buttock Patient Disposition: Home, Self-Care Instructions: Epidermal Inclusion Cysts (ED) Additional Instructions: You were evaluated in the ED for bump to left buttock. Clindamycin is an antibiotic that has been sent to your pharmacy. take this as directed over the next 5 days. Doxycycline is an antibiotic that has been sent to your pharmacy. take this as directed over the next 5 days. Morphine is a pain medication that has been sent to your pharmacy for you to take as needed for breakthrough pain. Zofran is an antiemetic that has been sent to your pharmacy for you to take for nausea. Take tylenol and ibuprofen as needed for pain/discomfort. Return to the ED for new or worsening symptoms. In the case of emergency call 911. On doxycycline, do not take pills immediately before going to bed and swallow pills with plenty of water. Avoid direct sunlight, iron, antacids, and Pepto Bismol. Call your provider if you develop new ringing in your ears, new problems hearing, dizziness, difficulty swallowing, rash, abdominal discomfort, nausea, or diarrhea. Prescriptions: New clindamycin HCl 300 mg capsule 300 mg PO TID 5 Days Qty: 15 0RF doxycycline hyclate 100 mg capsule 100 mg PO BID 5 Days Qty: 10 0RF morphine 10 mg capsule,extend.release pellets 10 mg PO Q12H PRN (Reason: pain (scale score 7-10)) Qty: 5 0RF Rx Instructions: Partial Fill upon patient request. ondansetron 4 mg tablet,disintegrating 4 mg PO DAILY PRN (Reason: nausea and vomiting) 5 Days Qty: 10 0RF No Action bupropion HCl 300 mg tablet extended release 24 hr 300 mg PO DAILY semaglutide 2 mg/dose (8 mg/3 mL) pen injector 2 mg subcut QWEEK Stand Alone Forms: Work/School Release Interventions: ED Discharge Assessment Last Done: 05/31/23 11:25 Discharge Date/Time: 05/31/23 11:26
[2023-05-31 11:25] VITALS: BP 101/63; PULSE 82; RESP 16; TEMP 36.3
== END 2023-05-31 11:26 | disposition home or self-care (01) ==
PROVIDERS: Emergency Provider Emergency Medicine; PCP Internal Medicine
DX: L72.0 Epidermal cyst (principal); L03.317 Cellulitis of buttock
CPT/HCPCS: 99283

== ENCOUNTER 2023-06-12 08:57 | Outpatient (AMB) | payer OTHER, SELFPAY ==
--- NOTE | 2023-06-12 09:00 | A.OFFVIS_ITS ---
Intake Vital Signs 06/12/23 09:04 Height 5 ft 5 in Weight 175 lb BMI 29.1 BP 122/64 Blood Pressure Location Lt brachial Position Sitting Pulse 78 Intake Visit Reasons: s/P [place], EGD; Dr Marrufo Intake Note: Elo presents in the office as a follow up EGD and COLO. CC: She states that after the colonoscopy she has a cyst on her left butt cheek that got infected. It is resolved but she needs to see if this needs to be taken care of. [employer] Required: No Allergies insect venom [insect bites] Allergy (Verified 06/12/23 09:01) Anaphylaxis Penicillins Allergy (Verified 06/12/23 09:01) Anaphylaxis codeine Adverse Reaction (Intermediate, Verified 06/12/23 09:01) hyperactivity HPI HPI Comments History of Present Illness Details A 48 y/o female f/u after EGD and colonoscopy polypectomy-with Dr. Marrufo- She tolerated procedure well She has a good appetite normal bowel She would gone to the ED she had abscess/cellulitis left buttock-she was treated with antibiotics however she says it has improved it is still present. Currently no drainage Reviewed procedure report, pathology as well as recommendations She does have some concerns over timing of follow procedures She does not feel acid reflux or heartburn-currently not taking any medication She does not use NSAID, typically No nausea, vomiting, hematemesis, hematochezia fever [facility] Medical History Class 1 obesity with body mass index (BMI) of 33.0 to 33.9 in adult Depression Chronic diarrhea Surgical History History of esophagogastroduodenoscopy (EGD) Hx of colonoscopy History of knee surgery Family History Mother Cardiovascular disease Father COPD (chronic obstructive pulmonary disease) Heart attack Congenital heart failure Family/Other Mental health disorder Substance use disorder Social History Household Members Other:: Housing: House Alcohol intake: former Patient Tobacco Use Status: Former Tobacco user Tobacco use type: Cigarette (quit 7 years ago) e-Cigarette/Vaping Use: Never Used service: No Current occupational status: employed Current occupational exposures/hazards: No Cognitive needs: No Hearing needs: No Vision needs: Yes Review of Systems Const All systems reviewed & are unremarkable except as noted in HPI and below Physical Exam Vital Signs: Last Vital Signs Pulse 78 06/12/23 09:04 BP 122/64 06/12/23 09:04 BMI result Body Mass Index 29.1 Results Reviewed Results Reviewed: Impressions:? * Normal esophagus (biopsy) * Hiatal hernia * Gastritis (biopsy) * Normal duodenum (biopsy) * Transverse colon polyp * Hemorrhoids Recommendations: - Follow path results - Avoid NSAIDs - Start omeprazole 20mg PO once daily x 8 weeks - If H pylori positive, pt will need treatment - Repeat colonoscopy in 7-10 years ge/Sex: 48/F Attending: Yesica Marrufo MD : 1975 Submitted by: Yesica Marrufo MD Copies to: Hoa Doty MD MR #: [id number] Status: [facility] Collected: 05/29/23 Location: [facility] Received: 05/29/23 Diagnosis A. Duodenum, biopsy: Chronic inactive duodenitis. B. Stomach, random, biopsy: Antral-type and oxyntic mucosa with mild chronic inactive inflammation; no Helicobacter organisms seen. C. Esophagus, lower, biopsy: - Squamous epithelium within normal limits; no inflammation seen. - Scant detached fragment of intestinalized epithelium. D. Colon, transverse, polypectomy: Tubular adenoma; negative for high-grade dysplasia or carcinoma. E. Colon, right, biopsy: Colonic mucosa within normal limits; negative for microscopic colitis. F. Colon, left, biopsy: Colonic mucosa within normal limits; negative for microscopic colitis. Comment: The small fragment of intestinalized epithelium in part C may represent a focus of [place] esophagus; however, a contaminant cannot be ruled out. Clinical History Pre-Op Dx: Epigastric pain, diarrhea Post-Op Dx: Upper: Gastritis, hiatal hernia; Lower: External hemorrhoids, colon polyp Microscopic Description A-F. Microscopic sections examined. Chronic injury is present (A) and no metaplastic changes are seen (B) supported by AB/PAS stains; no Helicobacter organisms are seen, supported by H. pylori immunostain (B). Material Received A. Bx duodenum B. Bx random gastric C. Bx lower esophagus D. Polyp transverse colon E. Bx right colon, rule out microscopic colitis F. Bx left colon, rule out microscopic colitis Gross Description Received in 6 parts. Patient: Elo Watts Age/Sex: 48/F MR#: [id number] Page 1 of 2 Assessment & Plan Assessment & Plan (1) Gastritis: Comment: Reviewed pathology - Code(s): K29.70 - Gastritis, unspecified, without bleeding Plan: Pantoprazole 20 mg daily Repeat EGD 3 years (2) Tubular adenoma: Comment: Reviewed with patient Code(s): D36.9 - Benign neoplasm, unspecified site Plan: Repeat asymptomatic colonoscopy 5 yrs (3) Left buttock abscess: Code(s): L02.31 - Cutaneous abscess of buttock Plan: Surgical refer Orders: Referrals General Surgery Referral L02.31 - Cutaneous abscess of buttock Medications: New pantoprazole 20 mg PO QAM 30 tabs 11RF Discontinued clindamycin HCl Discontinued Reason: Patient Completed Course 300 mg PO TID 5 days 15 caps 0RF doxycycline hyclate Discontinued Reason: Patient Completed Course 100 mg PO BID 5 days 10 caps 0RF morphine ER Partial Fill upon patient request. Discontinued Reason: Patient Completed Course 10 mg PO Q12H PRN 5 caps 0RF pain (scale score 7-10) Patient Instructions: Reviewed procedure report, pathology and recommendations Repeat asymptomatic colonoscopy 5 years Repeat EGD 3 years-reviewed pathology with patient- Pantoprazole 20 mg daily Referred for surgical consult left buttock Encouraged to call with any questions or concerns Coding Level of Care Code Est Pt Level 3 (91370) Diagnoses Gastritis K29.70 Tubular adenoma D36.9 Left buttock abscess L02.31 Time Spent (min) 25
[2023-06-12 09:04] VITALS: BP 122/64; PULSE 78; BMI 29.1
== END 2023-06-12 10:04 | disposition home or self-care (01) ==
PROVIDERS: PCP Internal Medicine; Visit Provider Physician Assistant
DX: K29.70 Gastritis, unspecified, without bleeding (principal); D36.9 Benign neoplasm, unspecified site; L02.31 Cutaneous abscess of buttock
CPT/HCPCS: 99213

== ENCOUNTER → 2023-06-12 08:57 | Outpatient (BNVA) | payer OTHER, SELFPAY | PROVIDERS: PCP Internal Medicine; Visit Provider Physician Assistant ==

== ENCOUNTER 2023-06-12 13:28 | Outpatient (AMB) | payer OTHER, SELFPAY ==
[2023-06-12 13:35] VITALS: BP 122/64; PULSE 78; BMI 29.1
--- NOTE | 2023-06-12 13:35 | A.OFFVIS_ITS ---
Intake Vital Signs 06/12/23 13:35 Height 5 ft 5 in Weight 175 lb 0.012 oz BMI 29.1 BP 122/64 Blood Pressure Location Lt brachial Position Sitting Pulse 78 Intake Visit Reasons: Abscess on buttock Intake Note: This patient presents for an assessment for abscess on buttock. Patient c/o; reports pain, reports completed 2 rounds of abx, reports it has decreased in size after completing abx, reports hard lump. Mental Hygienist Required: No Accompanied by: Self / Same As Patient Allergies insect venom [insect bites] Allergy (Verified 06/12/23 13:36) Anaphylaxis Penicillins Allergy (Verified 06/12/23 13:36) Anaphylaxis codeine Adverse Reaction (Intermediate, Verified 06/12/23 13:36) hyperactivity Medication List - Last Reconciled 06/12/23 by Boom Mayfield MD bupropion HCl 300 mg PO DAILY ondansetron 4 mg PO DAILY PRN 5 days pantoprazole 20 mg PO QAM semaglutide 2 mg subcut QWEEK HPI Abscess on buttock HPI Details 48-year-old female referred for a cyst o n the buttock. She says that she noticed this about 2 weeks ago. She says that this became very swollen, and tender. As a matter fact, she says she went to the ER and she was given antibiotics. She says that since then, the swelling has decreased significantly. However, she still feels some discomfort and induration. She denies any trauma or bug bite on the area. [facility] Medical History (Updated 06/12/23 @ 13:56 by Boom Mayfield MD) Cyst of buttocks Class 1 obesity with body mass index (BMI) of 33.0 to 33.9 in adult Depression Chronic diarrhea Surgical History History of esophagogastroduodenoscopy (EGD) Hx of colonoscopy History of knee surgery Family History Mother Cardiovascular disease Father COPD (chronic obstructive pulmonary disease) Heart attack Congenital heart failure Family/Other Mental health disorder Substance use disorder Social History Household Members Other:: Housing: House Alcohol intake: former Patient Tobacco Use Status: Former Tobacco user Tobacco use type: Cigarette (quit 7 years ago) e-Cigarette/Vaping Use: Never Used service: No Current occupational status: employed Current occupational exposures/hazards: No Cognitive needs: No Hearing needs: No Vision needs: Yes Review of Systems Const Denies chills and Denies fever(s) Card Denies chest pain, Denies dyspnea and Denies dyspnea on exertion Resp Denies cough, Denies dyspnea and Denies dyspnea on exertion GI Denies hematochezia and Denies change in bowel habits Denies hematuria Musc Denies back pain and Denies limited range of motion Neuro Denies focal weakness and Denies convulsions Psych Denies depression and Denies mood swings Physical Exam Vital Signs: Last Vital Signs Pulse 78 06/12/23 13:35 BP 122/64 06/12/23 13:35 BMI result Body Mass Index 29.1 Const General: comfortable and no acute distress Orientation/consciousness: patient oriented x3 Neck Neck: Yes no lymphadenopathy Resp Auscultation: clear to auscultation bilaterally Cardio Rhythm: regular rhythm GI Palpation (GI): Soft to palpation, nontender and no guarding Back/Spine/Pelvis Other: Left buttock - cystic induration, about 1 cm in size, not fluctuant at this time, mildly erythematous Neuro General: patient oriented x3 Assessment & Plan Assessment & Plan (1) Cyst of buttocks: Code(s): L72.9 - Follicular cyst of the skin and subcutaneous tissue, unspecified Plan: She has this cyst on the left buttock as described above. This was very swollen and tender 2 weeks ago. She wants this excised I explained the technique of excision under local anesthesia. I reviewed the risks including but not limited to bleeding infections, as well as the benefits and alternatives. She understands and wants to proceed. This will be done under local anesthesia in the office on her next visit. Coding Level of Care Code New Pt Level 3 (59272) Diagnoses Cyst of buttocks L72.9
== END 2023-06-12 13:58 | disposition home or self-care (01) ==
PROVIDERS: PCP Internal Medicine; Visit Provider Surgery
DX: L72.9 Follicular cyst of the skin and subcutaneous tissue, unspecified (principal)
CPT/HCPCS: 99203

== ENCOUNTER 2023-06-17 09:01 | Outpatient (AMB) | payer OTHER, SELFPAY ==
[2023-06-17 09:09] VITALS: BP 126/80
--- NOTE | 2023-06-17 09:09 | A.OFFPC_ITS ---
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 Accompanied by: Self / Same As Patient Allergies insect venom [insect bites] Allergy (Verified 06/17/23 09:22) Anaphylaxis Penicillins Allergy (Verified 06/17/23 09:22) Anaphylaxis codeine Adverse Reaction (Intermediate, Verified 06/17/23 09:22) hyperactivity Medication List - Last Reconciled 06/17/23 by Hoa Salgado MD bupropion HCl 300 mg PO DAILY pantoprazole 20 mg PO QAM semaglutide 2 mg subcut QWEEK Tobacco use date assessed: 05/01/23 Dental Screening Dental Screen Date: 05/01/23 HPI HPI Comments History of Present Illness Details This is a 48-year-old female with mild major depression, chronic GERD and meralgia paresthetica that complains of paresthesias of hands and feet that has been present for few months. Nerve conduction study was negative. Will be referred to Neurology. Will start gabapentin at bedtime due to meralgia paresthetica. Fasting blood glucose is normal as just not wear any tight belts around weeks. Depression stable with medications. GERD stable with PPIs. Went we are recently after having an abscess and will have surgical removal next week. No chest pain or shortness of breath. [facility] Medical History (Updated 06/17/23 @ 10:35 by Hoa Salgado MD) Cyst of buttocks Class 1 obesity with body mass index (BMI) of 33.0 to 33.9 in adult Depression Chronic diarrhea Surgical History History of esophagogastroduodenoscopy (EGD) Hx of colonoscopy History of knee surgery Family History Mother Cardiovascular disease Father COPD (chronic obstructive pulmonary disease) Heart attack Congenital heart failure Family/Other Mental health disorder Substance use disorder Social History Household Members Other:: Housing: House Alcohol intake: former Patient Tobacco Use Status: Former Tobacco user Tobacco use type: Cigarette e-Cigarette/Vaping Use: Never Used Second Hand Smoke Exposure: No service: No Current occupational status: employed Current occupational exposures/hazards: No Cognitive needs: No Hearing needs: No Vision needs: Yes Questionnaire Thrive Questionnaire Date Thrive assessed: 05/01/23 LILLIE-7 AMB Questionnaire LILLIE-7 Date LILLIE - 7 assessed: 05/01/23 Source: Developed by Drs. Ventura Harris, Katelyn Hines, Kian Tabor and colleagues, with an educational sreedhar from [employer]. Review of Systems Const All systems reviewed & are unremarkable except as noted in HPI and below Eyes Reports no additional complaints, Denies change in vision and Denies other visual disturbances Card Denies chest pain at rest, Denies chest pain with activity, Denies edema, Denies irregular heart rhythm, Denies claudication, Denies dyspnea, Denies dyspnea on exertion, Denies orthopnea, Denies paroxysmal nocturnal dyspnea and Denies slow heart rate Resp Denies cough, Denies dyspnea and Denies dyspnea on exertion GI Denies abdominal pain, Denies change in bowel habits, Denies excessive flatus, Denies nausea and Denies vomiting Denies urinary incontinence, Denies urinary hesitancy and Denies urinary urgency Physical exam (Primary Care) Vital Signs: Last Vital Signs BP 126/80 06/17/23 09:09 Tobacco/Smoking Status: Tobacco use Status Tobacco use date assessed 05/01/23 06/17/23 09:14 Patient Tobacco Use Status Former Tobacco user 06/17/23 09:14 Tobacco use type Cigarette 06/17/23 09:14 e-Cigarette/Vaping Use Never Used 06/17/23 09:14 Thrive Assessment: Date of Thrive Assessment Date Thrive assessed 05/01/23 06/17/23 09:14 Resp Effort & Inspection: normal respiratory effort Auscultation: clear to auscultation bilaterally Cardio Jugular venous distension: no JVD Rate: regular rate Rhythm: regular rhythm Heart sounds: S1 normal heart sound present and S2 normal heart sound present Neuro General: no focal motor deficits Extrem General: Yes full ROM Psych Appearance: grossly normal Assessment and Plan Assessment & Plan (1) Paresthesia: Code(s): R20.2 - Paresthesia of skin Plan: Referred to neurology. (2) Meralgia paresthetica: Code(s): G57.10 - Meralgia paresthetica, unspecified lower limb Plan: Start gabapentin at bedtime. Referred to Neurology. (3) Mild major depression: Code(s): F32.0 - Major depressive disorder, single episode, mild Plan: Continue bupropion. (4) Chronic GERD: Code(s): K21.9 - Gastro-esophageal reflux disease without esophagitis Plan: Continue pantoprazole. Orders: Orders US pelvic and transvaginal Today D25.9 - Leiomyoma of uterus, unspecified Referrals Neurology Referral R20.2 - Paresthesia of skin Medications: New gabapentin 100 mg PO BEDTIME 90 days 90 caps 0RF Coding Level of Care Code Est Pt Level 4 (77776) Diagnoses Paresthesia R20.2 Meralgia paresthetica G57.10 Mild major depression F32.0 Chronic GERD K21.9 Time Spent (min) 22
== END 2023-06-17 09:34 | disposition home or self-care (01) ==
PROVIDERS: PCP Internal Medicine; Visit Provider Internal Medicine
DX: R20.2 Paresthesia of skin (principal); G57.10 Meralgia paresthetica, unspecified lower limb; F32.0 Major depressive disorder, single episode, mild; K21.9 Gastro-esophageal reflux disease without esophagitis
CPT/HCPCS: 99214

== ENCOUNTER 2023-06-25 13:48 | Outpatient (REF) | payer OTHER, SELFPAY | END 2023-06-25 13:49 | disposition home or self-care (01) | LOC: HO.LNP 13:48 | PROVIDERS: PCP Internal Medicine; Visit Provider Surgery | DX: L72.0 Epidermal cyst (principal) | CPT/HCPCS: 11401; 88304 ==

== ENCOUNTER 2023-06-25 13:48 | Outpatient (AMB) | payer OTHER, SELFPAY ==
--- NOTE | 2023-06-25 13:49 | MHC.OFFVIS ---
Intake Intake Visit Reasons: excision of lesion left buttock Intake Note: In office procedure: excision of lesion left buttock Pt c/o; reports no changes or new complaints. Home Health Care Worker Required: No Accompanied by: Self / Same As Patient Allergies insect venom [insect bites] Allergy (Verified 06/25/23 13:50) Anaphylaxis Penicillins Allergy (Verified 06/25/23 13:50) Anaphylaxis codeine Adverse Reaction (Intermediate, Verified 06/25/23 13:50) hyperactivity HPI excision of lesion left buttock HPI Details She is here for excision of a left buttock cyst. [facility] Medical History Cyst of buttocks Class 1 obesity with body mass index (BMI) of 33.0 to 33.9 in adult Depression Chronic diarrhea Surgical History History of esophagogastroduodenoscopy (EGD) Hx of colonoscopy History of knee surgery Family History Mother Cardiovascular disease Father COPD (chronic obstructive pulmonary disease) Heart attack Congenital heart failure Family/Other Mental health disorder Substance use disorder Social History Household Members Other:: Housing: House Alcohol intake: former Patient Tobacco Use Status: Former Tobacco user Tobacco use type: Cigarette e-Cigarette/Vaping Use: Never Used Second Hand Smoke Exposure: No service: No Current occupational status: employed Current occupational exposures/hazards: No Cognitive needs: No Hearing needs: No Vision needs: Yes Office Procedures Excision Details: She was in position. The area of the cyst on left buttock was prepped and draped. Lidocaine 1% was used for local anesthesia. A surgical time-out had been done earlier. I made an elliptical incision on the skin around the cyst using blade 15. This carried down through the full-thickness of the skin subcutaneous fat to excise this entire cystic induration. This was about 9 mm in size. The incision was closed with full-thickness nylon 3-0 interrupted sutures. Dressings were applied. The procedure was completed. She tolerated procedure well. There were no immediate complications. She was given wound care instructions. [place] [address]-nrgja/arms/legs 0.6-1cm Procedure code (CPT) selection complete Assessment & Plan Assessment & Plan (1) Cyst of buttocks: Code(s): L72.9 - Follicular cyst of the skin and subcutaneous tissue, unspecified Plan: Excision was done in the office. She tolerated procedure well. She was given wound care instructions. Coding Level of Care Code Procedure Only Diagnoses Cyst of buttocks L72.9 CPT Codes Trunk/Arms/Legs - CPT: 79073-kilvr/arms/legs 0.6-1cm ([id number])
== END 2023-06-25 14:12 | disposition home or self-care (01) ==
PROVIDERS: PCP Internal Medicine; Visit Provider Surgery
DX: L72.0 Epidermal cyst (principal)
CPT/HCPCS: 11401

== ENCOUNTER 2023-06-26 09:00 | Outpatient (REF) | payer OTHER, SELFPAY ==
[2023-06-27 11:25] LABS: CT PCR NOT DETECTED (Not Detect.); NG PCR NOT DETECTED (Not Detect.)
[2023-06-27 13:10] LABS: BV Int Neg Control Negative (Negative); BV Int Pos Control Positive (Positive)
[2023-07-03 23:29] LABS: HPV mRNA E6/E7 rflx Not Detected (Not Detected)
== END 2023-06-26 09:01 | disposition home or self-care (01) ==
LOC: HO.LAB 09:00
PROVIDERS: PCP Internal Medicine; Visit Provider Advanced Practice Midwife
DX: Z01.419 Encounter for gynecological examination (general) (routine) without abnormal findings (principal); Z11.51 Encounter for screening for human papillomavirus (HPV); Z20.2 Contact with and (suspected) exposure to infections with a predominantly sexual mode of transmission
CPT/HCPCS: 0353U; 87480; 87510; 87624; 87660; 88142

== ENCOUNTER 2023-06-26 09:00 | Outpatient (AMB) | payer OTHER, SELFPAY ==
[2023-06-26 09:08] VITALS: BP 100/62; BMI 29.1
--- NOTE | 2023-06-26 09:08 | MHC.OFFVIS ---
Intake Vital Signs 06/26/23 09:08 Height 5 ft 5 in Weight 175 lb BMI 29.1 BP 100/62 Intake Visit Reasons: New patient Annual Hair And Makeup Designer Required: No Information Interpreted: clinical only General Manager [employer]: General Manager [employer] Present Allergies insect venom [insect bites] Allergy (Verified 06/26/23 09:09) Anaphylaxis Penicillins Allergy (Verified 06/26/23 09:09) Anaphylaxis codeine Adverse Reaction (Intermediate, Verified 06/26/23 09:09) hyperactivity Medication List - Last Reconciled 06/26/23 by Renée Jimenez CNM bupropion HCl XL 300 mg PO DAILY gabapentin 100 mg PO BEDTIME 90 days pantoprazole 20 mg PO QAM semaglutide 2 mg subcut QWEEK Is last menstrual period known: Yes Last menstrual period: 06/17/23 Do you need a note to return to daycare/school/sports/work: No HPI New patient Annual HPI Details Patient is here for a new polysomnograph tech exam she has not having any polysomnograph tech concerns she gets regular cycles she had removal of a cyst from her buttocks by Dr. Mayfield yesterday, and she had her colonoscopy last week she has a history of fibroids and her primary care provider Dr. Wagner ordered her an ultrasound to check on that but has not been scheduled yet. and she had her mammogram last fall and gets them regularly. She uses condoms for control and does not have any other polysomnograph tech concerns but we had a discussion during this visit about coming interactions with menopause etc. [facility] Medical History Cyst of buttocks Class 1 obesity with body mass index (BMI) of 33.0 to 33.9 in adult Depression Chronic diarrhea Surgical History History of esophagogastroduodenoscopy (EGD) Hx of colonoscopy History of knee surgery Family History Mother Cardiovascular disease Father COPD (chronic obstructive pulmonary disease) Heart attack Congenital heart failure Family/Other Mental health disorder Substance use disorder Social History Household Members Other:: Housing: House Alcohol intake: former Patient Tobacco Use Status: Former Tobacco user Tobacco use type: Cigarette e-Cigarette/Vaping Use: Never Used Second Hand Smoke Exposure: No service: No Current occupational status: employed Current occupational exposures/hazards: No Cognitive needs: No Hearing needs: No Vision needs: Yes Female Reproductive History Menstrual Age of Menarche: 14 Duration of menses: <3 days Date of last menstrual period: 06/17/23 control method: none Total pregnancies: 1 Full term: 0 History of abnormal pap smear: No (2019,neg per patient) Physical Exam Vital Signs: Last Vital Signs BP 100/62 06/26/23 09:08 BMI result Body Mass Index 29.1 Const General: healthy appearing, comfortable, no acute distress, well developed and alert Nutritional Appearance: average body habitus Orientation/consciousness: patient oriented x3 Limitations: no limitations HEENT Head: Yes normocephalic Neck Neck: Yes normal visual inspection Thyroid: Thyroid normal Chest Chest palpation & inspection: normal inspection of the chest Breast/axilla inspection: normal inspection of the breasts and normal inspection of the axillae Breast/axilla palpation: normal palpation of the breasts and normal palpation of the axillae Resp Effort & Inspection: normal respiratory effort GI Inspection: Yes normal to inspection, No Abdominal wall edema and No distended Palpation (GI): Soft to palpation and nontender Other: Vagina pink and moist cervix nulliparous pink smooth with tiny irregular polyp extruding from the os slightly friable with the Pap smear. Cervix long close thick mobile nontender uterus midposition, slightly deviated to patient's left, did not feel especially enlarged. nontender adnexa nontender not enlarged General: Yes bladder normal to palpation External Female Exam: normal external appearance and normal appearance of the urethra Speculum Exam - Vagina: normal appearance of the vagina, normal palpation and normal vaginal discharge Speculum Exam - Cervix: normal appearance of the cervix, normal palpation and nontender Bimanual exam- vagina & uterus: normal bimanual exam, normal palpation, uterine size normal, bladder normal to palpation, consistency normal, normal palpation, uterine mobility normal, uterine shape normal, No Cervical tenderness present, non-tender and no cervical motion tenderness Bimanual Exam- Adnexa, other: normal adnexae, no masses, normal and No adnexal tenderness Neuro General: patient oriented x3 Assessment & Plan Assessment & Plan (1) Well woman exam with routine gynecological exam: Code(s): Z01.419 - Encounter for gynecological examination (general) (routine) without abnormal findings (2) Screening for cervical cancer: Comment: pap done 06/26/23. Code(s): Z12.4 - Encounter for screening for malignant neoplasm of cervix (3) Perimenopause: Code(s): N95.1 - Menopausal and female climacteric states (4) Cervical polyp: Code(s): N84.1 - Polyp of cervix uteri Plan -----Discussed in this visit the following: healthy balanced diet, regular and consistent exercise, getting recommended health screens, doing the best she can for her particular health concerns, kegel exercises, pap smear screening and followup recommendations, mammography screening and SBE, normal changes in cycles in her life stage--- .---Discussed normal changes that happen premenapausally, perimenapausally, and postmenopausally, and ways to handle them. Discussed the normal variation, and the range of experiences that women experience. Discussed nutrition, health, need for exercise, both weight-bearing and aerobic. Also discussed the normal changes that happen with vaginal mucosal thinning and sensitivity, and simple more natural ways of handling these challenges. She said her primary care provider had ordered her a pelvic ultrasound to check on fibroids and Pap was done today. She says she has had a mammogram. I am recommending her next visit be with Dr. Pink to probably remove the polyp and have it sent to pathology. Reviewed the usual benign nature polyps. Recommend that she wait till the ultrasound is done and has been resulted so that if there is anything to follow-up with Dr. Pink she can discuss that with him as well at that visit Orders: Orders CT NG by PCR Today Z01.419 - Encounter for gynecological examination (general) (routine) without abnormal findings Pap Smear Today Z01.419 - Encounter for gynecological examination (general) (routine) without abnormal findings Bacterial Vaginosis Panel Today Z20.2 - Contact with and (suspected) exposure to infections with a predominantly sexual mode of transmission Coding Level of Care Code New Pt Prev Care 40-64y(16538) Diagnoses Well woman exam with routine gynecological exam Z01.419 Screening for cervical cancer Z12.4 Perimenopause N95.1 Cervical polyp N84.1
== END 2023-06-26 09:53 | disposition home or self-care (01) ==
LOC: HO.HWSM 09:00
PROVIDERS: PCP Internal Medicine; Visit Provider Advanced Practice Midwife
DX: Z01.419 Encounter for gynecological examination (general) (routine) without abnormal findings (principal); Z12.4 Encounter for screening for malignant neoplasm of cervix; N95.1 Menopausal and female climacteric states; N84.1 Polyp of cervix uteri
CPT/HCPCS: 99386

== ENCOUNTER 2023-07-03 11:46 | Outpatient (REF) | payer OTHER, SELFPAY ==
--- NOTE | ~2023-07-03 | US_ITS ---
EXAMINATION: US PELVIS COMPLETE CLINICAL INFORMATION: Leiomyomas; the last menstrual period was on 06/19/2023. 4 COMPARISON: None. TECHNIQUE: Transabdominal and transvaginal imaging were performed. FINDINGS: The uterus is of normal size and echogenicity, measuring 10.5 x 6.0 x 8.5 cm. The uterus is anteverted. A regular homogeneous endometrium is identified measuring 1.1 cm. Nabothian cysts are seen within the cervix. FIBROIDS: There are 4 fibroids seen. 1. Location: Right posterolateral lower uterine segment, myometrial. Size: 2.0 x 1.9 x 1.9 cm. Fibroid characteristics: Heterogeneous echotexture. 2. Location: Right. Mid uterine body, myometrial. Size: 3.7 x 2.8 x 4.2 cm. Fibroid characteristics: Heterogeneous echotexture. 3. Location: Mid to lower rightward uterine body, subendometrial. Size: 1.0 x 0.6 x 0.9 cm. Fibroid characteristics: Heterogeneous echotexture. 4.5 x 4.3 x 5.4 4. Location: Upper leftward uterine body, myometrial. Size: 4.5 x 4.3 x 5.4 cm. Fibroid characteristics: Heterogeneous echotexture, with shadowing calcifications. Both ovaries are of normal size and echogenicity. The ovaries show normal doppler flow. The right ovary measures 3.6 x 2.3 x 2.1 cm for a volume of 9.1 mL. Small physiologic follicles are noted, which require no imaging follow-up. The left ovary measures 2.3 x 2.0 x 1.9 cm for a volume of 4.6 mL. There is no pelvic free fluid. No adnexal mass is seen. US/US pelvic and transvaginal IMPRESSION: 1. There are uterine fibroids, as detailed. 2. Nabothian cysts are seen within the cervix.
== END 2023-07-03 11:47 | disposition home or self-care (01) ==
LOC: HO.US 11:46
PROVIDERS: PCP Internal Medicine; Visit Provider Internal Medicine
DX: D25.9 Leiomyoma of uterus, unspecified (principal)
CPT/HCPCS: 76830; 76856

== ENCOUNTER 2023-07-07 13:12 | Outpatient (AMB) | payer OTHER, SELFPAY ==
--- NOTE | 2023-07-07 13:40 | MHC.OFFVIS ---
Intake Visit Reasons: s/p excision lesion left buttock Intake Note: This patient presents for follow-up status post excision cyst on left buttock. Pt c/o; reports no complaints. Patient Services Manager Required: No Accompanied by: Self / Same As Patient Allergies insect venom [insect bites] Allergy (Verified 07/07/23 13:41) Anaphylaxis Penicillins Allergy (Verified 07/07/23 13:41) Anaphylaxis codeine Adverse Reaction (Intermediate, Verified 07/07/23 13:41) hyperactivity HPI HPI s/p excision lesion left buttock: Details: She underwent excision of a left buttock cyst under local anesthesia last 06/26/2023. She tolerated procedure well. She currently denies significant complaints. [facility] Medical History Cyst of buttocks Class 1 obesity with body mass index (BMI) of 33.0 to 33.9 in adult Depression Chronic diarrhea Surgical History History of removal of cyst (~06/25/23) History of esophagogastroduodenoscopy (EGD) Hx of colonoscopy History of knee surgery Family History Mother Cardiovascular disease Father COPD (chronic obstructive pulmonary disease) Heart attack Congenital heart failure Family/Other Mental health disorder Substance use disorder Social History Household Members Other:: Housing: House Alcohol intake: former Patient Tobacco Use Status: Former Tobacco user Tobacco use type: Cigarette e-Cigarette/Vaping Use: Never Used Second Hand Smoke Exposure: No service: No Current occupational status: employed Current occupational exposures/hazards: No Cognitive needs: No Hearing needs: No Vision needs: Yes Female Reproductive History Menstrual Age of Menarche: 14 Review of Systems Const Denies chills and Denies fever(s) Card Denies chest pain, Denies dyspnea and Denies dyspnea on exertion Resp Denies cough, Denies dyspnea and Denies dyspnea on exertion GI Denies hematochezia and Denies change in bowel habits Denies hematuria Musc Denies back pain and Denies limited range of motion Neuro Denies focal weakness and Denies convulsions Psych Denies depression and Denies mood swings Physical Exam Const General: comfortable and no acute distress Back/Spine/Pelvis Other: Left buttock excision site is well healed, not infected Assessment & Plan Assessment & Plan (1) Cyst of buttocks: Code(s): L72.9 - Follicular cyst of the skin and subcutaneous tissue, unspecified Category: Medical Plan: Status post excision. I removed all his sutures. The wound edges were well apposed. Her path report shows an epidermal cyst. She can follow up on a p.r.n. basis.
== END 2023-07-07 13:48 | disposition home or self-care (01) ==
LOC: HO.HGS 13:12
PROVIDERS: PCP Internal Medicine; Visit Provider Surgery
DX: L72.9 Follicular cyst of the skin and subcutaneous tissue, unspecified (principal)
CPT/HCPCS: 99024

== ENCOUNTER → 2023-07-07 13:12 | Outpatient (BNVA) | payer OTHER, SELFPAY | PROVIDERS: PCP Internal Medicine; Visit Provider Surgery ==

== ENCOUNTER 2023-11-03 09:01 | Outpatient (AMB) | payer OTHER, SELFPAY ==
--- NOTE | 2023-11-03 09:04 | A.OFFPC_ITS ---
Vital Signs 11/03/23 09:05 Height 5 ft 5 in BMI Reason not done Patient refused/unable BP 118/70 Blood Pressure Location Lt brachial Position Sitting Intake Visit Reasons: pe Intake Note: Patient here for a physical exam Almond Huller Required: No Accompanied by: Self / Same As Patient Allergies insect venom [insect bites] Allergy (Verified 11/03/23 09:14) Anaphylaxis Penicillins Allergy (Verified 11/03/23 09:14) Anaphylaxis codeine Adverse Reaction (Intermediate, Verified 11/03/23 09:14) hyperactivity Medication List - Last Reconciled 11/03/23 by Hoa Salgado MD bupropion HCl XL 300 mg PO DAILY gabapentin 100 mg PO BEDTIME 90 days pantoprazole 20 mg PO QAM semaglutide 2 mg subcut QWEEK Tobacco use date assessed: 05/01/23 Dental Screening Dental Screen Date: 11/03/23 Did you have a dental visit in the last 12 months?: Yes Did you have a dental problem in the last 6 months where you did not have access to dental care?: No Was dental information given to patient?: Patient has dentist HPI HPI Comments History of Present Illness0 Details This is a 48-year-old female with mild major depression that comes for her physical exam. Depression stable with bupropion. Mammogram done 2022 was normal. Colonoscopy done 2023 showing tubular adenoma next colonoscopy should be 2028. Pap smear done 2023 was HPV negative. She complains of right knee pain and would like to see ortho. [facility] Medical History (Updated 11/03/23 @ 09:28 by Hoa Salgado MD) Cyst of buttocks Class 1 obesity with body mass index (BMI) of 33.0 to 33.9 in adult Depression Chronic diarrhea Surgical History History of removal of cyst (~06/25/23) History of esophagogastroduodenoscopy (EGD) Hx of colonoscopy History of knee surgery Family History Mother Cardiovascular disease Father COPD (chronic obstructive pulmonary disease) Heart attack Congenital heart failure Family/Other Mental health disorder Substance use disorder Social History Household Members Other:: Housing: House Alcohol intake: former Patient Tobacco Use Status: Former Tobacco user Tobacco use type: Cigarette e-Cigarette/Vaping Use: Never Used Second Hand Smoke Exposure: No service: No Current occupational status: employed Current occupational exposures/hazards: No Cognitive needs: No Hearing needs: No Vision needs: Yes Female Reproductive History Menstrual Age of Menarche: 14 Questionnaire Thrive Questionnaire Date Thrive assessed: 05/01/23 LILLIE-7 AMB Questionnaire LILLIE-7 Date LILLIE - 7 assessed: 05/01/23 Source: Developed by Drs. Ventura Harris, Katelyn Hines, Kian Tabor and colleagues, with an educational sreedhar from [employer]. Review of Systems Const All systems reviewed & are unremarkable except as noted in HPI and below Card Denies chest pain at rest, Denies chest pain with activity, Denies edema, Denies irregular heart rhythm, Denies claudication, Denies dyspnea, Denies dyspnea on exertion, Denies orthopnea, Denies paroxysmal nocturnal dyspnea and Denies slow heart rate Resp Denies cough, Denies dyspnea and Denies dyspnea on exertion GI Denies abdominal pain, Denies change in bowel habits, Denies excessive flatus, Denies nausea and Denies vomiting Denies urinary incontinence, Denies urinary hesitancy and Denies urinary urgency Musc Reports arthralgias Physical exam (Primary Care) Vital Signs: Last Vital Signs BP 118/70 11/03/23 09:05 Tobacco/Smoking Status: Tobacco use Status Tobacco use date assessed 05/01/23 11/03/23 09:07 Patient Tobacco Use Status Former Tobacco user 11/03/23 09:07 Tobacco use type Cigarette 11/03/23 09:07 e-Cigarette/Vaping Use Never Used 11/03/23 09:07 Thrive Assessment: Date of Thrive Assessment Date Thrive assessed 05/01/23 11/03/23 09:07 HENMT Head: Yes normal to inspection, Yes normocephalic and Yes atraumatic Ears: external ears normal Eyes General: appearance normal, both eyes and all related structures Eyelids: Yes eyelids normal Conjunctivae: conjunctivae normal Neck Neck: Yes normal visual inspection and Yes supple Resp Effort & Inspection: normal respiratory effort Auscultation: clear to auscultation bilaterally Cardio Jugular venous distension: no JVD Rate: regular rate Rhythm: regular rhythm Heart sounds: S1 normal heart sound present and S2 normal heart sound present GI Inspection: Yes normal to inspection Palpation (GI): Soft to palpation and nontender Auscultation: normal bowel sounds Skin General skin exam: no rashes or lesions noted Neuro General: no focal motor deficits Extrem General: Yes full ROM Psych Appearance: grossly normal Assessment and Plan Assessment & Plan (1) Physical exam: Code(s): Z00.00 - Encounter for general adult medical examination without abnormal findings Plan: Repeat in a year. (2) Mild major depression: Code(s): F32.0 - Major depressive disorder, single episode, mild Plan: Continue bupropion. (3) Right knee pain: Code(s): M25.561 - Pain in right knee Qualifiers: Chronicity: chronic Qualified Code(s): M25.561 - Pain in right knee; G89.29 - Other chronic pain Plan: X-ray ordered. Referred to Ortho. Orders: Orders MM screening mammo BI Today Z12.31 - Encounter for screening mammogram for malignant neoplasm of breast Comprehensive [place]. Panel Fast Today Z00.00 - Encounter for general adult medical examination without abnormal findings Lipid Panel Today E78.5 - Hyperlipidemia, unspecified, Z00.00 - Encounter for general adult medical examination without abnormal findings XR knee RT 2V Today M25.561 - Pain in right knee Referrals Orthopedics Referral M25.561 - Pain in right knee Medications: Changed From bupropion HCl XL 300 mg PO DAILY To bupropion HCl XL 300 mg PO DAILY 90 days 90 tabs 1RF Coding Level of Care Code Est Pt Level 3 (66273) Est Pt Prev Care 40-64y(51393) Diagnoses Physical exam Z00.00 Mild major depression F32.0 Chronic pain of right knee M25.561; G89.29 Chronicity: chronic Time Spent (min) 33
[2023-11-03 09:05] VITALS: BP 118/70
== END 2023-11-03 09:27 | disposition home or self-care (01) ==
PROVIDERS: PCP Internal Medicine; Visit Provider Internal Medicine
DX: Z00.00 Encounter for general adult medical examination without abnormal findings (principal); F32.0 Major depressive disorder, single episode, mild; M25.561 Pain in right knee; G89.29 Other chronic pain
CPT/HCPCS: 99213; 99396

== ENCOUNTER 2023-11-07 08:28 | Outpatient (REF) | payer OTHER, SELFPAY ==
--- NOTE | ~2023-11-07 | XR_ITS ---
EXAMINATION: X-RAY KNEE, RIGHT CLINICAL INFORMATION: Right knee pain COMPARISON: None. TECHNIQUE: AP and lateral views of the right knee FINDINGS: No fracture. Small marginal osteophytes in the patellofemoral compartment. No significant joint space narrowing. No joint. XR/XR knee RT 2V IMPRESSION: Mild patellofemoral compartment osteoarthritis. Electronically signed by: Oral Zhong MD 11/13/2023 08:43 AM EDT
[2023-11-07 10:07] LABS: Alanine Aminotransferase 8 U/L (0-31); Albumin Level 4.4 g/dL (3.5-5.0); Alkaline Phosphatase 55 U/L (39-117); Anion Gap 10 (12-20); Aspartate Amino Transferase 12 U/L (5-31); Bilirubin Total 0.5 mg/dL (0.0-1.0); Blood Urea Nitrogen 8 mg/dL (9-16); Calcium 9.7 mg/dL (8.4-10.2); Carbon Dioxide 29 mmol/L (22-29); Chloride 105 mmol/L (96-108); Cholesterol 231 mg/dL (<200); Estimated Glomerular Filt Rate > 60; Glucose Fasting 90 mg/dL (60-99); HDL Cholesterol 58 mg/dL (>40); LDL Cholesterol Calculated 159 mg/dL (<100); Potassium 4.6 mmol/L (3.3-5.1); Sodium 139 mmol/L (135-145); Total Protein 7.7 g/dL (6.5-8.0); Triglycerides 70 mg/dL (<150)
== END 2023-11-07 08:29 | disposition home or self-care (01) ==
LOC: HO.XRAY 08:28
PROVIDERS: PCP Internal Medicine; Visit Provider Internal Medicine
DX: Z00.00 Encounter for general adult medical examination without abnormal findings (principal); M25.561 Pain in right knee; E78.5 Hyperlipidemia, unspecified
CPT/HCPCS: 36415; 73560; 80053; 80061

== ENCOUNTER 2023-11-27 12:38 | Outpatient (AMB) | payer OTHER, SELFPAY ==
--- NOTE | 2023-11-27 12:51 | A.OFFVIS_ITS ---
Vital Signs 11/27/23 13:02 Height 5 ft 5 in Weight 166 lb 8 oz BMI 27.7 BP 118/74 Blood Pressure Location Rt brachial Position Sitting Respiration 16 Pulse 88 Pulse Source Pulse Oximeter Pulse Oximetry (%) 98 Oxygen Delivery Method Room Air Intake Visit Reasons: INP-Paresthesia of skin Intake Note: New pt presents to the office for consultation for paresthesia of the skin. Education Counselor Required: No Allergies insect venom [insect bites] Allergy (Verified 11/27/23 12:52) Anaphylaxis Penicillins Allergy (Verified 11/27/23 12:52) Anaphylaxis codeine Adverse Reaction (Intermediate, Verified 11/27/23 12:52) hyperactivity Medication List - Last Reconciled 11/27/23 by Kandy Aldridge MD bupropion HCl XL 300 mg PO DAILY 90 days gabapentin 100 mg PO BEDTIME 90 days pantoprazole 20 mg PO QAM semaglutide 2 mg subcut QWEEK HPI Comments Details: 48y/o Right handed female comes for evaluation of paresthesias , numbness in her left leg. It started 1 year ago with pain in her left hip left lateral thigh,leg and she could not walk she went to ER she had multiple evaluations, CT abdomen , pelvis femur , showed fibroids. The pain lasted 3 days and she started feeling numb and sensitive in the lateral side of her left thigh. she was doing ski conditioning program 2 weeks prior to this which included lot of lunges and squats. she did a yoga class a day prior but no injury . she was able to ski last season . No pain but discomfort and numbness. cold makes it worse. No back pain she also has h/o ocular migraines and recently has on and off floaters - worse with bright light [facility] Medical History (Updated 11/27/23 @ 14:50 by Kandy Aldridge MD) Ocular migraine Meralgia paresthetica of left side Cyst of buttocks Class 1 obesity with body mass index (BMI) of 33.0 to 33.9 in adult Depression Chronic diarrhea Surgical History History of removal of cyst (~06/25/23) History of esophagogastroduodenoscopy (EGD) Hx of colonoscopy History of knee surgery Family History Mother Cardiovascular disease Father COPD (chronic obstructive pulmonary disease) Heart attack Congenital heart failure Family/Other Mental health disorder Substance use disorder Social History Household Members Other:: Housing: House Alcohol intake: former Patient Tobacco Use Status: Former Tobacco user Tobacco use type: Cigarette e-Cigarette/Vaping Use: Never Used Second Hand Smoke Exposure: No service: No Current occupational status: employed Current occupational exposures/hazards: No Cognitive needs: No Hearing needs: No Vision needs: Yes Female Reproductive History Menstrual Age of Menarche: 14 Physical Exam Vital Signs: Last Vital Signs Pulse 88 11/27/23 13:02 Resp 16 11/27/23 13:02 BP 118/74 11/27/23 13:02 Pulse Ox 98 11/27/23 13:02 Oxygen Delivery Method Room Air 11/27/23 13:02 BMI result Body Mass Index 27.7 Const General: cooperative, healthy appearing, comfortable and no acute distress Nutritional Appearance: average body habitus Orientation/consciousness: patient oriented x3 Eyes Pupils: Equal, round and reactive pupils present Neuro Other: dysesthesias in left lateral thigh upper 2/3 General: patient oriented x3, No gait normal, tone normal, moves all extremities and no focal motor deficits Cranial nerves: Yes Facial sensation intact/muscles of mastication intact, Yes Equal, round and reactive pupils present, No Bilaterally intact EOM present, Yes Nystagmus not present, Yes Normal facial strength present, Yes Midline tongue present, Yes Symmetric palate elevation present and Yes Ability to bilaterally elevate shoulders present Cognition (Neuro): normal cognition Gait exam (Neuro): Normal gait present Motor exam (neuro): 5/5 motor strength present throughout and Normal motor muscle tone present throughout Deep tendon reflexes (DTR's): Right triceps reflex intensity grade: 2+, Left triceps reflex intensity grade: 2+, Rt Biceps (C5, C6): 2+, Left biceps reflex intensity grade: 2+, Right brachioradialis reflex intensity grade: 2+, Left brachioradialis reflex intensity grade: 2+, Right patellar reflex intensity grade: 2+ and Left patellar reflex intensity grade: 2+ Coordination: [id number] test normal Assessment & Plan Assessment & Plan (1) Meralgia paresthetica of left side: Code(s): G57.12 - Meralgia paresthetica, left lower limb Category: Medical (2) Ocular migraine: Code(s): G43.109 - Migraine with aura, not intractable, without status migrainosus Category: Medical Plan Reviewed EMG results explained the diagnosis in detail suggested loose fitting clothes Exercises - she declined PT for now. suggested blue light blocking glasses and magnesium 400mg qhs Medications: New magnesium oxide 400 mg PO BEDTIME 30 tabs 6RF Coding Level of Care Code New Pt Level 4 (22797) Diagnoses Meralgia paresthetica of left side G57.12 Ocular migraine G43.109
[2023-11-27 13:02] VITALS: BP 118/74; PULSE 88; RESP 16; O2SAT 98; BMI 27.7
== END 2023-11-27 13:41 | disposition home or self-care (01) ==
PROVIDERS: PCP Internal Medicine; Visit Provider Psychiatry & Neurology Neurology
DX: G57.12 Meralgia paresthetica, left lower limb (principal); G43.109 Migraine with aura, not intractable, without status migrainosus
CPT/HCPCS: 99204

== ENCOUNTER → 2023-11-27 12:38 | Outpatient (BNVA) | payer OTHER, SELFPAY | PROVIDERS: PCP Internal Medicine; Visit Provider Psychiatry & Neurology Neurology ==

== ENCOUNTER 2023-12-02 09:55 | Outpatient (AMB) | payer OTHER, SELFPAY ==
--- NOTE | 2023-12-02 10:02 | A.OFFVIS_ITS ---
Vital Signs 12/02/23 10:17 Height 5 ft 5 in Weight 166 lb BMI 27.6 Intake Visit Reasons: New Pt - Right Knee Pain, right knee 10/21/08 Intake Note: Elo is a 48 year old female who presets today as a new patient for a evaluation of her right knee pain. Hx of right knee w/ meniscectomy and debridement chondroplasty of the patella done on 10/21/08. She states her pain is okay today but she notices that her knee tends to pop out of place when she is bending down or squatting. She also mentioned she had a procedure done back in 2015. Allergies insect venom [insect bites] Allergy (Verified 12/02/23 10:06) Anaphylaxis Penicillins Allergy (Verified 12/02/23 10:06) Anaphylaxis codeine Adverse Reaction (Intermediate, Verified 12/02/23 10:06) hyperactivity HPI HPI New Pt - Right Knee Pain, right knee 10/21/08: Details: 48-year-old female who presents in the office today, as a new patient, for an evaluation of right knee pain.? The patient was seen by her PCP on 11/03/23 when she requested a referral to orthopedics.? While in the office today, the patient reports her pain is okay today, but she notices her right knee tends to ?pop out of place? when she is bending down. She describes the pain as sharp with lateral motion and when going up and down the stairs. She feels this pain is identical to the prior injuries that she has had. ? ? Patient has a surgical history of a right knee arthroscopy on 10/21/08.?She also reports having a procedure done in 2015. Both procedures were for meniscal injuries. ? [facility] Medical History (Updated 12/02/23 @ 11:04 by Kylie Johnson PA-C) Ocular migraine Meralgia paresthetica of left side Cyst of buttocks Class 1 obesity with body mass index (BMI) of 33.0 to 33.9 in adult Depression Chronic diarrhea Surgical History History of removal of cyst (~06/25/23) History of esophagogastroduodenoscopy (EGD) Hx of colonoscopy History of knee surgery Family History Mother Cardiovascular disease Father COPD (chronic obstructive pulmonary disease) Heart attack Congenital heart failure Family/Other Mental health disorder Substance use disorder Social History (Updated 12/02/23 @ 10:07 by Reginaldo Leon) Household Members Other:: Housing: House Alcohol intake: former Patient Tobacco Use Status: Former Tobacco user Tobacco use type: Cigarette e-Cigarette/Vaping Use: Never Used Second Hand Smoke Exposure: No service: No Current occupational status: employed Current occupation: realtor Current occupational exposures/hazards: No Cognitive needs: No Hearing needs: No Vision needs: Yes Female Reproductive History Menstrual Age of Menarche: 14 Review of Systems Const All systems reviewed & are unremarkable except as noted in HPI and below Physical Exam Vital Signs: BMI result Body Mass Index 27.6 Const General: cooperative, healthy appearing and no acute distress Resp Effort & Inspection: normal respiratory effort and able to speak in complete sentences Cardio Rate: regular rate Peripheral pulses: Peripheral pulses 2+ throughout GI Palpation (GI): Soft to palpation Skin Lesions: no lesions Rashes: no rashes Extrem Other: Right knee: Normal to inspection. No ecchymosis, erythema, or joint effusion. No tenderness to palpation along the medial joint line. Pain along the lateral joint line with palpation. Full knee extension and flexion. Negative Sushma's. Negative anterior drawer. NVI.? Assessment & Plan Assessment & Plan (1) Internal derangement of right knee: Code(s): M23.91 - Unspecified internal derangement of right knee Category: Medical Plan Ms. Watts is a 48-year-old female who presents in the office today, as a new pat ient, for an evaluation of right knee pain.? The patient was seen by her PCP on 11/03/23 when she requested a referral to orthopedics.? While in the office today, the patient reports her pain is okay today, but she notices her right knee tends to ?pop out of place? when she is bending down. She describes the pain as sharp with lateral motion and when going up and down the stairs. She feels this pain is identical to the prior injuries that she has had. ? ? Patient has a surgical history of a right knee arthroscopy on 10/21/08.?She also reports having a procedure done in 2014. Both procedures were for meniscal injuries.? ?? A referral for the patient to have an MRI to further evaluate the integrity of the right knee was made in the office today. Should insurance not approve the MRI the patient will be referred to physical therapy for 6 weeks. She demonstrates understanding and will reach out to the office should denial occur, and a referral will be placed at that time. Follow-up will be after either the MRI is obtained, or she has completed PT by phone to discuss her symptoms, or sooner if needed.? ? X-rays of the right knee, obtained on 11/07/23, revealed: Mild patellofemoral co mpartment osteoarthritis.? Orders: Orders XR knee LT 1V Today M25.569 - Pain in unspecified knee XR knee RT 1V Today M25.569 - Pain in unspecified knee MR knee RT wo con Today M23.91 - Unspecified internal derangement of right knee Patient Instructions: Scribed by Joyce Patel medical billing representative, for Kylie Johnson PA-C on 12/02/2023 at 10:22 am, EST. Coding Level of Care Code New Pt Level 4 (43712) Diagnoses Internal derangement of right knee M23.91
[2023-12-02 10:17] VITALS: BMI 27.6
== END 2023-12-02 10:34 | disposition home or self-care (01) ==
PROVIDERS: PCP Internal Medicine; Visit Provider Physician Assistant
DX: M23.91 Unspecified internal derangement of right knee (principal)
CPT/HCPCS: 99204

== ENCOUNTER → 2023-12-02 13:15 | Outpatient (BNV) | payer OTHER, SELFPAY | PROVIDERS: PCP Internal Medicine; Visit Provider Internal Medicine | DX: Z12.31 Encounter for screening mammogram for malignant neoplasm of breast (principal) | CPT/HCPCS: 77063; 77067 ==

== ENCOUNTER 2023-12-02 13:17 | Outpatient (REF) | payer OTHER, SELFPAY ==
--- NOTE | ~2023-12-02 | MM_ITS ---
EXAMINATION: MM SCREENING DIGITAL BREAST TOMOSYNTHESIS, BILATERAL CLINICAL INFORMATION: Screening. Asymptomatic. COMPARISON: Mammography: Comparison is made with available priors TECHNIQUE: Digital breast mammography with tomosynthesis is performed in both the craniocaudal and mediolateral oblique views along with computer-aided detection (CAD). FINDINGS: There are scattered areas of fibroglandular density (ACR BI-RADS breast composition Category b). There are no significant masses, abnormal calcifications, or other abnormalities. MM/MM tomosynthesis screening BI IMPRESSION: No mammographic evidence of malignancy. ASSESSMENT: BI-RADS BI-RADS 1 - Negative RECOMMENDATION: Routine annual mammography screening. 1 year F/U This examination should not preclude the clinical evaluation of a suspicious palpable abnormality. This patient's information was entered into a reminder system with a target due date for their next mammogram. Electronically signed by: Jerica Wu DO 12/15/2023 06:54 PM EDT
== END 2023-12-02 13:18 | disposition home or self-care (01) ==
LOC: HO.MAMMO 13:17
PROVIDERS: PCP Internal Medicine; Visit Provider Internal Medicine
DX: Z12.31 Encounter for screening mammogram for malignant neoplasm of breast (principal)
CPT/HCPCS: 77063; 77067

== ENCOUNTER 2023-12-19 19:50 | Outpatient (REF) | payer OTHER, SELFPAY ==
--- NOTE | ~2023-12-19 | MR_ITS ---
EXAMINATION: MR KNEE WITHOUT CONTRAST, RIGHT CLINICAL INFORMATION: Right knee locking following injury. Internal derangement. Pain. COMPARISON: Right knee radiographs dated 11/07/2023. TECHNIQUE: MRI of the knee without contrast was performed using routine sequences on a high-field scanner. FINDINGS: MENISCI: Medial Meniscus: Heterogeneity and attenuation of the posterior root which could represent normal variation versus irregular tearing. Lateral Meniscus: Nondisplaced oblique tibial articular surface tear of the posterior meniscal body extending into the posterior horn. LIGAMENTS: Cruciate: Intact. Collateral: Minimal edema adjacent to the medial collateral ligament consistent with a grade 1 sprain. Intact fibular collateral ligament. EXTENSOR MECHANISM: Minimal distal quadriceps and proximal patellar tendinosis. ARTICULAR CARTILAGE/BONE: Patellofemoral Compartment: Lateral patellar facet articular cartilage signal heterogeneity with minimal fissuring and subchondral cystic change. Tiny marginal osteophytes. Medial Compartment: Intact articular cartilage. Lateral Compartment: Posterior weightbearing lateral femoral condyle and lateral tibial plateau articular cartilage signal heterogeneity with areas of fullness fissuring and subchondral cystic change. Tiny marginal osteophytes. JOINT FLUID AND BURSAE: Trace joint effusion. Complex synovial recess versus ganglion cyst adjacent to the anterior root of the medial meniscus measuring up to 1.7 cm in craniocaudal dimension. MR/MR knee RT wo con IMPRESSION: 1. Heterogeneity and attenuation of the medial meniscus posterior root which could represent normal variation versus irregular tearing. 2. Nondisplaced oblique tibial articular surface tear of the lateral meniscus posterior body extending into the posterior horn. 3. Probable grade 1 sprain of the medial collateral ligament. 4. Minimal distal quadriceps and proximal patellar tendinosis. 5. Mild patellofemoral and lateral compartment osteoarthritis. Trace joint effusion. Complex synovial recess versus ganglion cyst adjacent to the anterior root of the medial meniscus measuring up to 1.7 cm. Electronically signed by: Jef Villatoro MD 12/26/2023 10:14 AM EDT
== END 2023-12-19 19:51 | disposition home or self-care (01) ==
LOC: HO.MRI 19:50
PROVIDERS: PCP Internal Medicine; Visit Provider Physician Assistant
DX: M23.91 Unspecified internal derangement of right knee (principal)
CPT/HCPCS: 73721

== ENCOUNTER 2024-01-05 08:01 | Outpatient (AMB) | payer OTHER, SELFPAY ==
[2024-01-05 08:03] VITALS: BP 118/64; BMI 27.5
--- NOTE | 2024-01-05 08:03 | A.OFFVIS_ITS ---
Vital Signs 01/05/24 08:03 Height 5 ft 5 in Weight 165 lb 5.547 oz BMI 27.5 BP 118/64 Intake Visit Reasons: Firbiods Consult Global Sales Manager Required: No Information Interpreted: non-clinical & clinical Derrickman Helper: Derrickman Helper Present (Ashlie ALEJANDRO) Accompanied by: Self / Same As Patient Allergies insect venom [insect bites] Allergy (Verified 01/05/24 08:06) Anaphylaxis Penicillins Allergy (Verified 01/05/24 08:06) Anaphylaxis codeine Adverse Reaction (Intermediate, Verified 01/05/24 08:06) hyperactivity Is last menstrual period known: Yes HPI Comments Details: Presenting referred from PCP regarding heavy menstrual cycles associated passage of blood clots . 07/08 pelvic ultrasound showed the following: The uterus is of normal size and echogenicity, measuring 10.5 x 6.0 x 8.5 cm. The uterus is anteverted. A regular homogeneous endometrium is identified measuring 1.1 cm. Nabothian cysts are seen within the cervix. FIBROIDS: There are 4 fibroids seen. 1. Location: Right posterolateral lower uterine segment, myometrial. Size: 2.0 x 1.9 x 1.9 cm. Fibroid characteristics: Heterogeneous echotexture. 2. Location: Right. Mid uterine body, myometrial. Size: 3.7 x 2.8 x 4.2 cm. Fibroid characteristics: Heterogeneous echotexture. 3. Location: Mid to lower rightward uterine body, subendometrial. Size: 1.0 x 0.6 x 0.9 cm. Fibroid characteristics: Heterogeneous echotexture. 4.5 x 4.3 x 5.4 4. Location: Upper leftward uterine body, myometrial. Size: 4.5 x 4.3 x 5.4 cm. Fibroid characteristics: Heterogeneous echotexture, with shadowing calcifications. Both ovaries are of normal size and echogenicity. The ovaries show normal doppler flow. The right ovary measures 3.6 x 2.3 x 2.1 cm for a volume of 9.1 mL. Small physiologic follicles are noted, which require no imaging follow-up. The left ovary measures 2.3 x 2.0 x 1.9 cm for a volume of 4.6 mL. There is no pelvic free fluid. No adnexal mass is seen. Last co testing was in 07/08 was negative Last mammogram in 12/08 was BI-RADS 1 [facility] Medical History Ocular migraine Meralgia paresthetica of left side Cyst of buttocks Class 1 obesity with body mass index (BMI) of 33.0 to 33.9 in adult Depression Chronic diarrhea Surgical History History of removal of cyst (~06/25/23) History of esophagogastroduodenoscopy (EGD) Hx of colonoscopy History of knee surgery Family History Mother Cardiovascular disease Father COPD (chronic obstructive pulmonary disease) Heart attack Congenital heart failure Family/Other Mental health disorder Substance use disorder Social History Household Members Other:: Housing: House Alcohol intake: former Patient Tobacco Use Status: Former Tobacco user Tobacco use type: Cigarette e-Cigarette/Vaping Use: Never Used Second Hand Smoke Exposure: No service: No Current occupational status: employed Current occupation: [employer] Current occupational exposures/hazards: No Cognitive needs: No Hearing needs: No Vision needs: Yes Female Reproductive History Menstrual Age of Menarche: 14 Review of Systems Const All systems reviewed & are unremarkable except as noted in HPI and below Reports as per HPI and Reports no additional complaints GI Reports no additional complaints Reports no additional complaints Physical Exam Vital Signs: Last Vital Signs BP 118/64 01/05/24 08:03 BMI result Body Mass Index 27.5 Assessment & Plan Assessment & Plan (1) Abnormal uterine bleeding (AUB): Code(s): N93.9 - Abnormal uterine and vaginal bleeding, unspecified Category: Medical Plan: CBC, TSH, prolactin, HCG, FSH/LH and pelvic ultrasound ordered. Discussed with the patient the different causes of abnormal bleeding including thyroid disorders, uterine and ovarian pathology, endometrial hyperplasia, carcinoma and other potential causes. Discussed with the patient the work up including CBC (to r/o anemia), TSH, prolactin, pelvic Ultrasound, endometrial biopsy to r/o endometrial pathology. All questions answered and the patient verbalized understanding. Instructed the patient to schedule an appointment for an endometrial biopsy in 2 weeks. (2) Uterine fibroid: Code(s): D25.9 - Leiomyoma of uterus, unspecified Category: Medical Qualifiers: Uterine leiomyoma location: unspecified location Qualified Code(s): D25.9 - Leiomyoma of uterus, unspecified Plan: Discussed with the patient the results of the ultrasound and the size of the myomas. Discussed with the patient risk of myosarcoma and symptoms that are caused by myomas including but not limited to pelvic pain, pressure symptoms, abnormal uterine bleeding. In addition discussed with the patient options of treatment for myomas including: Serial ultrasounds periodically to follow-up on the size of the myoma while targeting the treatment against fibroids related symptoms ( control pills, Mirena IUD, progesterone treatment, GnRH agonist/antagonist, uterine artery embolization or endometrial ablation) versus surgical treatment including hysterectomy and or myomectomy. All pros and cons, risks and benefits of all options were discussed with the patient. The patient understands that delay in surgical treatment in case of myosarcoma can affect her prognosis, after further discussion, the patient decided to think about it a nd get back to us next visit Orders: Orders Complete Blood Count no Diff Today N93.9 - Abnormal uterine and vaginal bleeding, unspecified TSH reflex Free T4 Today N93.9 - Abnormal uterine and vaginal bleeding, unspecified Prolactin Today N93.9 - Abnormal uterine and vaginal bleeding, unspecified HCG Quantitative Today N93.9 - Abnormal uterine and vaginal bleeding, unspecified Follicle Stimulating Hormone Today N93.9 - Abnormal uterine and vaginal bleeding, unspecified US pelvic and transvaginal Today N93.9 - Abnormal uterine and vaginal bleeding, unspecified Lutenizing Hormone Today N93.9 - Abnormal uterine and vaginal bleeding, unspecified Coding Level of Care Code Est Pt Level 3 (56552) Diagnoses Abnormal uterine bleeding (AUB) N93.9 Uterine leiomyoma, unspecified location D25.9 Uterine leiomyoma location: unspecified location
== END 2024-01-05 08:29 | disposition home or self-care (01) ==
LOC: HO.HWS 08:01
PROVIDERS: PCP Internal Medicine; Visit Provider Obstetrics & Gynecology
DX: N93.9 Abnormal uterine and vaginal bleeding, unspecified (principal); D25.9 Leiomyoma of uterus, unspecified
CPT/HCPCS: 99213

== ENCOUNTER → 2024-01-05 08:01 | Outpatient (BNVA) | payer OTHER, SELFPAY | PROVIDERS: PCP Internal Medicine; Visit Provider Obstetrics & Gynecology ==

== ENCOUNTER 2024-01-09 11:06 | Outpatient (AMB) | payer OTHER, SELFPAY ==
--- NOTE | 2024-01-09 11:07 | MHC.OFFVIS ---
Intake Visit Reasons: OV - Right knee MRI review Intake Note: Elo is a 48 year old female who presents to the office today for her Right knee MRI review. She states that she still tends to have pain when she is going down the stairs and she is making side to side motions. Allergies insect venom [insect bites] Allergy (Verified 01/09/24 11:10) Anaphylaxis Penicillins Allergy (Verified 01/09/24 11:10) Anaphylaxis codeine Adverse Reaction (Intermediate, Verified 01/09/24 11:10) hyperactivity HPI HPI OV - Right knee MRI review: Details: 48-year-old female who presents in the office today for a follow-up of right knee pain and to review the MRI results of her right knee. I last saw the patient in the office on 12/02/23 when a referral was placed for an MRI of the right knee. While in the office today, the patient reports she persists to have right knee pain when ambulating down the stairs and with side to side movements with her right knee. Patient has a surgical history of a right knee arthroscopy on 10/21/08. She also reports having a procedure done in 2014. Both procedures were for meniscal injuries. [facility] Medical History Ocular migraine Meralgia paresthetica of left side Cyst of buttocks Class 1 obesity with body mass index (BMI) of 33.0 to 33.9 in adult Depression Chronic diarrhea Surgical History History of removal of cyst (~06/25/23) History of esophagogastroduodenoscopy (EGD) Hx of colonoscopy History of knee surgery Family History Mother Cardiovascular disease Father COPD (chronic obstructive pulmonary disease) Heart attack Congenital heart failure Family/Other Mental health disorder Substance use disorder Social History Household Members Other:: Housing: House Alcohol intake: former Patient Tobacco Use Status: Former Tobacco user Tobacco use type: Cigarette e-Cigarette/Vaping Use: Never Used Second Hand Smoke Exposure: No service: No Current occupational status: employed Current occupation: realtor Current occupational exposures/hazards: No Cognitive needs: No Hearing needs: No Vision needs: Yes Female Reproductive History Menstrual Age of Menarche: 14 Review of Systems Const All systems reviewed & are unremarkable except as noted in HPI and below Physical Exam Const General: cooperative, healthy appearing and no acute distress Resp Effort & Inspection: normal respiratory effort and able to speak in complete sentences Cardio Rate: regular rate Peripheral pulses: Peripheral pulses 2+ throughout GI Palpation (GI): Soft to palpation Skin Lesions: no lesions Rashes: no rashes Extrem Other: Right knee: Normal to inspection. No ecchymosis, erythema, or joint effusion. No tenderness to palpation along the medial joint line. Pain along the lateral joint line with palpation. Full knee extension and flexion. Negative Sushma's. Negative anterior drawer. NVI.? Office Procedures Joint Injection/Aspiration Joint Injection/Aspiration Primary Site: right knee Prep: site was prepped using aseptic technique, ethochloride spray was applied and injection warnings given Injected: 80 mg of, DepoMedrol, with 8 mL of (2% plain lido) and in the joint Approach Used: anterolateral Procedure: The patient tolerated the procedure well, but had some pain with the injection and there was some relief with the local anesthesia Coding 31337 - Large joint Procedure code (CPT) selection complete Assessment & Plan Assessment & Plan (1) Internal derangement of right knee: Code(s): M23.91 - Unspecified internal derangement of right knee Category: Medical Plan Ms. Watts is a 48-year-old female who presents in the office today for a follow-up of right knee pain and to review the MRI results of her right knee. I last saw the patient in the office on 12/02/23 when a referral was placed for an MRI of the right knee. While in the office today, the patient reports she persists to have right knee pain when ambulating down the stairs and with side to side movements with her right knee. Patient has a surgical history of a right knee arthroscopy on 10/21/08. She also reports having a procedure done in 2014. Both procedures were for meniscal injuries. The case and the MRI imaging was reviewed by Dr. Park, who was available to speak with me but unable to see the patient, and a conservative treatment was recommended at this time. We discussed the role of a cortisone injection and physical therapy. The patient has elected to proceed with both the options. I have placed a referral to physical therapy. The patient was offered a cortisone injection in the right knee with 80 mg of Depo-Medrol. The patient was explained the risks, benefits, and alternatives to receiving this injection. After receiving consent for the injection, the patient had the procedure done while in the office today. The patient tolerated the procedure well with no complication. Should the patient not notice any improvement then our next option would be knee arthroscopy for the treatment of possible partial meniscectomy. Follow-up will be PRN, or sooner if needed. MRI of the right knee, obtained on 12/19/23, revealed: 1. Heterogeneity and attenuation of the medial meniscus posterior root which could represent normal variation versus irregular tearing. 2. Nondisplaced oblique tibial articular surface tear of the lateral meniscus posterior body extending into the posterior horn. 3. Probable grade 1 sprain of the medial collateral ligament. 4. Minimal distal quadriceps and proximal patellar tendinosis. 5. Mild patellofemoral and lateral compartment osteoarthritis. Trace joint effusion. Complex synovial recess versus ganglion cyst adjacent to the anterior root of the medial meniscus measuring up to 1.7 cm. Orders: Orders PT Evaluation and Treatment Today M23.91 - Unspecified internal derangement of right knee Patient Instructions: Scribed by Iliana Parsons emergency medical service manager, for Kylie Johnson PA-C on 01/08/24 at 11:26 am EST. Coding Level of Care Code Est Pt Level 3 (72653) Diagnoses Internal derangement of right knee M23.91 CPT Codes Coding - 73851 Large joint: 75573 - Large joint ([id number])
== END 2024-01-09 11:38 | disposition home or self-care (01) ==
PROVIDERS: PCP Internal Medicine; Visit Provider Physician Assistant
DX: M23.91 Unspecified internal derangement of right knee (principal)
CPT/HCPCS: 20610; 99213

== ENCOUNTER 2024-01-09 11:53 | Outpatient (REF) | payer OTHER, SELFPAY ==
[2024-01-09 12:57] LABS: Hematocrit 41.9 % (37.0-47.0); Hemoglobin 14.3 g/dl (12.0-16.0); Mean Corpuscular HGB Conc 34.1 g/dl (31.0-35.0); Mean Corpuscular Hemoglobin 30.4 pg (27.0-33.0); Mean Corpuscular Volume 89.1 fL (80.0-98.0); Mean Platelet Volume 9.9 fL (9.4-12.3); Platelet Count 391 X10*3/uL (160-400); Red Cell Distribution Width 12.2 % (11.0-16.0); White Blood Count 6.9 X10*3/uL (4.8-10.8)
[2024-01-09 14:18] LABS: HCG Quantitative < 2 mIU/mL; TSH reflex Free T4 1.02 uIU/mL (0.32-4.0)
[2024-01-11 02:29] LABS: Follicle Stimulating Hormone 5.6 mIU/mL; Lutenizing Hormone 3.2 mIU/mL
== END 2024-01-09 11:54 | disposition home or self-care (01) ==
LOC: HO.US 11:53
PROVIDERS: PCP Internal Medicine; Visit Provider Obstetrics & Gynecology
DX: M23.91 Unspecified internal derangement of right knee (principal); N93.9 Abnormal uterine and vaginal bleeding, unspecified
CPT/HCPCS: 20610; 36415; 76830; 76856; 83001; 83002; 84146; 84443; 84702; 85027; J1010; J2003

== ENCOUNTER 2024-01-19 12:52 | Outpatient (AMB) | payer OTHER, SELFPAY ==
[2024-01-19 13:02] VITALS: BP 118/62; BMI 27.5
--- NOTE | 2024-01-19 13:02 | MHC.OFFVIS ---
Vital Signs 01/19/24 13:02 Height 5 ft 5 in Weight 165 lb BMI 27.5 BP 118/62 Blood Pressure Location Lt brachial Position Sitting Intake Visit Reasons: EMB Allergies insect venom [insect bites] Allergy (Verified 01/19/24 13:02) Anaphylaxis Penicillins Allergy (Verified 01/19/24 13:02) Anaphylaxis codeine Adverse Reaction (Intermediate, Verified 01/19/24 13:02) hyperactivity HPI Comments Details: Presenting for EMB [facility] Medical History Ocular migraine Meralgia paresthetica of left side Cyst of buttocks Class 1 obesity with body mass index (BMI) of 33.0 to 33.9 in adult Depression Chronic diarrhea Surgical History History of removal of cyst (~06/25/23) History of esophagogastroduodenoscopy (EGD) Hx of colonoscopy History of knee surgery Family History Mother Cardiovascular disease Father COPD (chronic obstructive pulmonary disease) Heart attack Congenital heart failure Family/Other Mental health disorder Substance use disorder Social History Household Members Other:: Housing: House Alcohol intake: former Patient Tobacco Use Status: Former Tobacco user Tobacco use type: Cigarette e-Cigarette/Vaping Use: Never Used Second Hand Smoke Exposure: No service: No Current occupational status: employed Current occupation: realtor Current occupational exposures/hazards: No Cognitive needs: No Hearing needs: No Vision needs: Yes Female Reproductive History Menstrual Age of Menarche: 14 Review of Systems Const All systems reviewed & are unremarkable except as noted in HPI and below Reports as per HPI and Reports no additional complaints GI Reports no additional complaints Reports no additional complaints Physical Exam Vital Signs: Last Vital Signs BP 118/62 01/19/24 13:02 BMI result Body Mass Index 27.5 Office Procedures Endometrial Biopsy Details: The patient was counseled regarding the indication and benefits of endometrial sampling to rule out endometrial pathology including not limited to endometrial hyperplasia or endometrial cancer and others; The alternatives (Either do nothing vs. hysteroscopy D&C) & the risks were discussed with the patient including but not limited: pain, uterine perforation, bleeding, infection, possible injury to bladder, bowel, ureter, possible need for blood transfusion with all its possible risks. The patient verbalized understanding all questions answered and signed consent. Urine test done in the office was negative The patient was placed into the dorsal lithotomy position; a speculum was inserted in the vagina. Using aseptic technique for the procedure, the cervix was cleansed with Betadine. The anterior lip of the cervix was grasped with a single tooth tenaculum. The uterus was sounded to 7 cm with a 4 mm Pipelle was used. Tissues samples were obtained and placed in formalin, in a patient labeled container and sent to the pathology department. At the end of the procedure, there was minimal bleeding noted The patient tolerated the procedure well and was discharged in good condition with the following instructions: Nothing in the vagina until the bleeding stops. No sex until the bleeding stops, to call if any of the following occurs: fever (>100.4), flu-like symptoms, abdominal pain, heavy bleeding, four smelling vaginal discharge. The patient was instructed to schedule a Follow up appointment in 2 weeks to discuss pathology results of the biopsy and treatment options. This note was generated with a voice recognition program. Some errors may have been overlooked during the review of this note. Sometimes these errors may affect the content or meaning of a given sentence. 96254-[id number] Biopsy Results AMB Test Urine AMB Test Urine Negative Last Edit by Sherlyn Nichols CMA on 01/19/24 13:03 Results Reviewed Results Reviewed: Laboratory Last Values Tst Clinic Negative 01/19/24 13:02 Assessment & Plan Assessment & Plan (1) Abnormal uterine bleeding (AUB): Code(s): N93.9 - Abnormal uterine and vaginal bleeding, unspecified Category: Medical Plan: EMB done, see procedure note Orders: Orders AMB HCG Urine Test Today Z32.02 - Encounter for test, result negative AMB Endometrial Biopsy Today N93.9 - Abnormal uterine and vaginal bleeding, unspecified Coding Level of Care Code Procedure Only Diagnoses Abnormal uterine bleeding (AUB) N93.9 CPT Codes Endometrial Biopsy - CPT: 76157-Fqkboqfysfm Biopsy ([id number])
== END 2024-01-19 13:14 | disposition home or self-care (01) ==
LOC: HO.HWS 12:52
PROVIDERS: PCP Internal Medicine; Visit Provider Obstetrics & Gynecology
DX: N93.9 Abnormal uterine and vaginal bleeding, unspecified (principal); Z32.02 Encounter for pregnancy test, result negative
CPT/HCPCS: 58100

== ENCOUNTER 2024-01-19 12:52 | Outpatient (REF) | payer OTHER, SELFPAY | END 2024-01-19 12:53 | disposition home or self-care (01) | LOC: HO.LNP 12:52 | PROVIDERS: PCP Internal Medicine; Visit Provider Obstetrics & Gynecology | DX: N93.9 Abnormal uterine and vaginal bleeding, unspecified (principal) | CPT/HCPCS: 58100; 81025; 88305 ==

== ENCOUNTER 2024-02-04 13:05 | Outpatient (RCR) | payer OTHER, SELFPAY ==
--- NOTE | 2024-02-04 14:36 | MHC.PT.EP ---
[facility] [place] Office [place] Office [place] Office [address] Tenzin Nolasco [address] [phone] F: [phone] F: [phone] F: [phone] F: [phone] Physical Therapy Plan of Care Date of Evaluation: 02/04/24 Date of Surgery: 10/21/08 Diagnosis: Internal derangement of RIGHT knee (per MD) meniscus tears on MRI (RS) Assessment: Elo is a 49 yo female who was referred by Kylie Johnson PA-C for Dx of internal derangement of RIGHT knee. Meniscus tears are visualized on recent MRI. Pt has hx of two meniscal arthroscopy surgeries. Impairments include pain during step down, knee valgus during functional squat and anterior step down, mild b/l trendelenberg during gait, and pt report of locking of the knee resulting in their inability to squat, twist, or navigate stairs without pain. These deficits are impacting their ability to participate in skiing, and climbing stairs to home office. Pt will benefit from skilled PT to address impairments and meet their goals. Frequency and Duration: The patient will be seen 1x every other week for 6 weeks Short Term Goals: 2 weeks Patient will be able to perform HEP to independently manage condition. Skilled Nursing Goals: 6 weeks Patient will increase glute med strength to 4+/5 b/l to be able to perform DL squat without knee valgus or pain. Patient will increase quad strength to 5/5 to be able to navigate reciprocal stairs without pain. Treatment Plan: Modalities to reduce pain, spasms and effusion. Manual therapy to restore motion and function. Therapeutic exercise to improve strength and flexibility. Neuromuscular re-education for posture and balance. Therapeutic activities to return to functional activities of daily living. Electronically signed by: Jaylon Loyola, PT, DPT Please sign and return to therapist. Thank you for your referral.
--- NOTE | 2024-05-11 10:42 | MHC.PT.DC ---
[facility] [place] [facility] [place] [facility] [place] [facility] [address] Tenzin Nolasco [address] [phone] F: [phone] F: [phone] F: [phone] F: [phone] Physical Therapy Discharge Report Diagnosis: Internal derangement of RIGHT knee (per MD) meniscus tears on MRI (RS) Date of Surgery: 10/21/08 Date of Evaluation: 02/04/24 Date of Discharge: 05/11/24 Treatments to Date: 1 Cancellations to Date: 6 No Shows to Date: 0 Discharge Status: Patient Elected to Stop Visit Non-compliance Discharge Summary: Elo only attended PT evaluation and cancelled all FUP sessions, noting she had to work. Unable to determine effectiveness of PT interventions on pt sxs due to no FUP visits attended. Electronically signed by: Jaylon Loyola, PT, DPT Please sign and return to therapist. Thank you for your referral.
== END 2024-05-11 10:42 | disposition home or self-care (01) ==
LOC: HO.PT 13:05
PROVIDERS: PCP Internal Medicine; Visit Provider Physician Assistant
DX: M23.91 Unspecified internal derangement of right knee (principal)
CPT/HCPCS: 97110; 97161; 97535

== ENCOUNTER 2024-03-02 12:04 | Outpatient (AMB) | payer OTHER, SELFPAY ==
[2024-03-02 12:13] VITALS: BMI 27.5
--- NOTE | 2024-03-02 12:13 | A.OFFVIS_ITS ---
Vital Signs 03/02/24 12:13 Height 5 ft 5 in Weight 165 lb BMI 27.5 Intake Visit Reasons: EMB/US FOLLOW UP/DO NOT RS Allergies insect venom [insect bites] Allergy (Verified 01/19/24 13:02) Anaphylaxis Penicillins Allergy (Verified 01/19/24 13:02) Anaphylaxis codeine Adverse Reaction (Intermediate, Verified 01/19/24 13:02) hyperactivity HPI Comments Details: The patient is presenting for follow-up to discuss the results of her abnormal uterine bleeding workup and options of treatment. The following workup was done.: H&H= 14.3/41.9 TSH, prolactin, hCG, GC and chlamydia were negative. FSH/LH =5.6/3.2 Endometrial biopsy pathology showed the following: Endometrium, biopsy: Disordered proliferative endometrium; no atypia or hyperplasia identified. Co testing was done was negative. Mammogram was BI-RADS 1 Pelvic ultrasound done in 01/07, report still pending [facility] Medical History Ocular migraine Meralgia paresthetica of left side Cyst of buttocks Class 1 obesity with body mass index (BMI) of 33.0 to 33.9 in adult Depression Chronic diarrhea Surgical History History of removal of cyst (~06/25/23) History of esophagogastroduodenoscopy (EGD) Hx of colonoscopy History of knee surgery Family History Mother Cardiovascular disease Father COPD (chronic obstructive pulmonary disease) Heart attack Congenital heart failure Family/Other Mental health disorder Substance use disorder Social History Household Members Other:: Housing: House Alcohol intake: former Patient Tobacco Use Status: Former Tobacco user Tobacco use type: Cigarette e-Cigarette/Vaping Use: Never Used Second Hand Smoke Exposure: No service: No Current occupational status: employed Current occupation: realtor Current occupational exposures/hazards: No Cognitive needs: No Hearing needs: No Vision needs: Yes Female Reproductive History Menstrual Age of Menarche: 14 Review of Systems Const All systems reviewed & are unremarkable except as noted in HPI and below Reports as per HPI and Reports no additional complaints GI Reports no additional complaints Reports no additional complaints Assessment & Plan Assessment & Plan (1) Abnormal uterine bleeding (AUB): Code(s): N93.9 - Abnormal uterine and vaginal bleeding, unspecified Category: Medical Plan: Discussed with the patient the results of the work up done and options of treatment including Lysteda, Mirena IUD, endometrial ablation and hysterectomy. All pros, cons, risks and benefits if each option was discussed with the patient and the patient decided to think about it and get back to us. All questions answered the patient verbalized understanding. (2) Uterine fibroid: Code(s): D25.9 - Leiomyoma of uterus, unspecified Category: Medical Qualifiers: Uterine leiomyoma location: unspecified location Qualified Code(s): D25.9 - Leiomyoma of uterus, unspecified Plan: Discussed with the patient that the results of the ultrasound still pending. Discussed with the patient risk of myosarcoma and symptoms that are caused by myomas including but not limited to pelvic pain, pressure symptoms, abnormal uterine bleeding. In addition discussed with the patient options of treatment for myomas including: Serial ultrasounds periodically to follow-up on the size of the myoma while targeting the treatment against fibroids related symptoms ( control pills, Mirena IUD, progesterone treatment, GnRH agonist/antagonist, uterine artery embolization or endometrial ablation) versus surgical treatment including hysterectomy and or myomectomy. All pros and cons, risks and benefits of all options were discussed with the patient. The patient understands that delay in surgical treatment in case of myosarcoma can affect her prognosis, after further discussion, the patient decided to think about it and get back to us next visit. Instructions given the patient to schedule an ultrasound follow-up appointment within 2 weeks Coding Level of Care Code Est Pt Level 3 (16348) Diagnoses Abnormal uterine bleeding (AUB) N93.9 Uterine leiomyoma, unspecified location D25.9 Uterine leiomyoma location: unspecified location
== END 2024-03-02 12:41 | disposition home or self-care (01) ==
PROVIDERS: PCP Internal Medicine; Visit Provider Obstetrics & Gynecology
DX: N93.9 Abnormal uterine and vaginal bleeding, unspecified (principal); D25.9 Leiomyoma of uterus, unspecified
CPT/HCPCS: 99213

== ENCOUNTER → 2024-03-02 12:04 | Outpatient (BNVA) | payer OTHER, SELFPAY | PROVIDERS: PCP Internal Medicine; Visit Provider Obstetrics & Gynecology ==

== ENCOUNTER 2024-03-24 09:28 | Outpatient (AMB) | payer OTHER, SELFPAY ==
--- NOTE | 2024-03-24 09:33 | A.OFFVIS_ITS ---
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 The following workup was done.: H&H= 14.3/41.9 TSH, prolactin, hCG, GC and chlamydia were negative. FSH/LH =5.6/3.2 Endometrial biopsy pathology showed the following: Endometrium, biopsy: Disordered proliferative endometrium; no atypia or hyperplasia identified. Co testing was done was negative. Mammogram was BI-RADS 1 Pelvic ultrasound done in 01/07, report it should on 03/07/2024, shows the following: Uterus: The uterus is anteverted and the enlarged measuring 8.6 x 6.5 x 9.6 cm for a volume of 282 cc. The double wall endometrial thickness is 6 mm. Nabothian cysts are present in the cervix along with some calcifications. 4 uterine fibroids are measured with the largest near the fundus on the left at 5.4 cm. The other 3 fibroids on the right range in size from 2.3 to 3.9 cm. A number of fibroids appear larger than prior although a few appear smaller. Adnexa: Both ovaries are visualized. There is normal color flow to the adnexa. There is no ovarian torsion. There is no pelvic ascites or fluid collection. Right ovary measures 3.2 x 1.9 x 1.7 cm. Left ovary measures 3.3 x 2.4 x 1.9 cm. [facility] Medical History Ocular migraine Meralgia paresthetica of left side Cyst of buttocks Class 1 obesity with body mass index (BMI) of 33.0 to 33.9 in adult Depression Chronic diarrhea Surgical History History of removal of cyst (~06/25/23) History of esophagogastroduodenoscopy (EGD) Hx of colonoscopy History of knee surgery Family History Mother Cardiovascular disease Father COPD (chronic obstructive pulmonary disease) Heart attack Congenital heart failure Family/Other Mental health disorder Substance use disorder Social History Household Members Other:: Housing: House Alcohol intake: former Patient Tobacco Use Status: Former Tobacco user Tobacco use type: Cigarette e-Cigarette/Vaping Use: Never Used Second Hand Smoke Exposure: No service: No Current occupational status: employed Current occupation: realtor Current occupational exposures/hazards: No Cognitive needs: No Hearing needs: No Vision needs: Yes Female Reproductive History Menstrual Age of Menarche: 14 Review of Systems Const All systems reviewed & are unremarkable except as noted in HPI and below Reports as per HPI and Reports no additional complaints GI Reports no additional complaints Reports no additional complaints Assessment & Plan Assessment & Plan (1) Uterine fibroid: Code(s): D25.9 - Leiomyoma of uterus, unspecified Category: Medical Qualifiers: Uterine leiomyoma location: unspecified location Qualified Code(s): D25.9 - Leiomyoma of uterus, unspecified Plan: Discussed with the patient the results of the ultrasound and the size of the myomas. In addition discussed with the patient options of treatment for myomas including: Serial ultrasounds periodically to follow-up on the size of the myoma while targeting the treatment against fibroids related symptoms ( control pills, Mirena IUD, progesterone treatment, GnRH agonist/antagonist, uterine artery embolization or endometrial ablation) versus surgical treatment including hysterectomyy. All pros and cons, risks and benefits of all options were discussed with the patient. The patient decided to proceed with surgical management. Discussed with the patient the different types of hysterectomies including, vaginal, laparoscopic assisted vaginal, robotic assisted laparoscopic,& abdominal with/without BSO. All pros, cons, r/b of each approach were discussed the patient including evidence that morbidity is less and recovery is shorter with minimally invasive approaches to hysterectomy. Discussed with the patient the lack of availability of the robot GrexItinci robot and/or minimally invasive yard hand specialist at [facility]. Will refer to [facility] minimally invasive installment account checker surgery Instructed the patient to call our office back in case a referral appointment is not scheduled, missed or canceled so that we will assist on rescheduling another appointment, the patient verbalized understanding agreed with the plan. Coding Level of Care Code Est Pt Level 3 (26496) Diagnoses Uterine leiomyoma, unspecified location D25.9 Uterine leiomyoma location: unspecified location
== END 2024-03-24 10:06 | disposition home or self-care (01) ==
LOC: HO.HWS 09:28
PROVIDERS: PCP Internal Medicine; Visit Provider Obstetrics & Gynecology
DX: D25.9 Leiomyoma of uterus, unspecified (principal)
CPT/HCPCS: 99213

== ENCOUNTER → 2024-03-24 09:28 | Outpatient (BNVA) | payer OTHER, SELFPAY | PROVIDERS: PCP Internal Medicine; Visit Provider Obstetrics & Gynecology ==

== ENCOUNTER 2024-06-28 08:01 | Outpatient (AMB) | payer OTHER, SELFPAY ==
--- OUTSIDE RECORDS SUMMARY | 2024-06-28 08:09 | XMS_ITS | Clinical Summary ---
Author Organization [facility] Address [address] [place] [address] Care Team Providers Care Table Top Tile Setter Name Role Phone Unavailable Primary Care Provider Unavailabl e Source Comments PLEASE NOTE, if this patient is a minor, it may be UNLAWFUL to discuss sensitive information that is contained in these records (such as FAMILY PLANNING, MENTAL HEALTH or SUBSTANCE ABUSE) with the minor patient's parent or other person without the patient's specific authorization.[facility] Allergies Active Allergy Reactions Criticality Noted Date Comments Bee Sting Anaphylaxis 01/12/2016 Codeine Other (See Comments) Low 07/08/2012 Comment: becomes super hyper Penicillins Other (See Comments) 07/21/2015 Unknown reaction Wasps Anaphylaxis 01/12/2016 Medications EPINEPHrine (EPIPEN) 0.3 mg/0.3 mL injection Inject 0.3 mL into the muscle as needed for anaphylaxis. 2 Each 2 6 Active naproxen sodium (ANAPROX) 550 mg tablet Take 1 Tab by mouth 2 (two) times daily as needed (pain). 60 Tab 3 6 Active buPROPion (WELLBUTRIN XL) 300 mg 24 hr tablet Take 1 Tab by mouth every morning Swallow whole. Do not crush or chew. Prescribed by psychiatry. 7 Active Active Problems Problem Noted Date Diagnosed Date Back muscle spasm 02/07/2017 Palpitations 01/25/2016 Overview (02/07/2017): Infrequent episodes for about 20 years. 01/12/16 - EKG normal. Hgb/hct, electrolytes, TSH normal. Father has ICD, but pt not sure of exact diagnosis Maternal aunt, age 55, with sudden cardiac arrest, fatal Assessment & Plan (06/12/2016 6:51 PM EDT): Awaiting appt for holter monitor. Assessment & Plan (01/25/2016 2:30 PM EST): Infrequent episodes for about 20 years; occurred twice in the past week, felt different than prior episodes. EKG NSR. Check labs as noted, refer for holter monitor. Irritable bowel syndrome with diarrhea 6 Overview (01/25/2016): Chronic GI symptoms consistent with IBS. Pt avoids gluten. TTG Ab normal in 03/2014. Assessment & Plan (01/25/2016 2:36 PM EST): Discussed dietary modifications for management of IBS. Reviewed reasons to return to clinic. Chronic pain of right knee 01/12/2016 Overview (01/25/2016): Worsened after fall while snowboarding during the spring. S/p arthroscopy in 2008 for lateral meniscus tear. Assessment & Plan (06/12/2016 6:50 PM EDT): Seen by Ortho (Dr Braden); scheduled for arthroscopic plica removal from right knee on 03/14/16. RCRI 0, good functional capacity (METS greater than or equal to 4). CBC and renal function normal on 01/12/16. EKG normal on 01/12/16. Cleared for arthroscopic knee surgery without additional labs or cardiac testing. Advised pt to not take naproxen for 1 week prior to surgery. Assessment & Plan (01/25/2016 2:31 PM EST): Some laxity noted on exam. Refer to Ortho. FIBROIDS, UTERUS 09/19/2014 Overview (02/21/2016): Pelvic US 08/24/14 at [place]: FINDINGS: The uterus measures 7.2 cm x 3.6 cm x 5.8 cm in overall dimensions. The estimated uterine volume is 80 mL. The myometrium is heterogeneous, containing multiple heterogeneous, predominantly hypoechoic lesions consistent with leiomyomas, including 4.5 cm x 3.7 cm x 4.2 cm intramural fibroid within the left uterine body, 0.9 cm x 0.8 cm x 1.3 cm intramural fibroid within the right posterior uterine body, and 1.2 cm x 0.7 cm x 0.9 cm subserosal fibroid within the right posterior uterine body. The endometrium has a normal appearance and measures 5 mm. Both ovaries have a normal appearance. The right ovary measures 2.4 cm x 1.8 cm x 1.6 cm. The estimated volume is 3.7 mL. The left ovary measures 2.2 cm x 1.4 cm x 1.4 cm. The estimated ovarian volume is 2.3 mL. There is no significant free fluid. Pelvic US 07/08/12 at [facility] - left-sided subserosal fibroid measuring 4.0 x 3.0 x 2.8 cm, right ovary with simple cyst (1.6 x 1.3 x 1.8cm), left ovary with simple cyst (2.5 x 2.4 x 2.2cm) Pelvic US 02/25/13 at [facility] - subserosal fibroid measuring 3.9 x 3.9 x 3.3 cm, ovaries normal Dysmenorrhea 09/19/2014 Overview (01/25/2016): Takes naproxen as needed. DEPRESSION 07/18/2014 Overview (01/25/2016): Sees psychiatrist. On wellbutrin 450mg daily since 03/2015. Assessment & Plan (01/25/2016 2:32 PM EST): Psychological condition is improving with treatment. PHQ9=1. Plan: Continue current treatment regimen. Regular aerobic exercise. Psychological condition will be reassessed at next behavioral health appointment. ROUTINE HEALTH MAINTENANCE 04/11/2014 Overview (02/22/2016): Pap 06/17/12 - ASCUS, HPV negative. Pap 01/20/14 - NILM. Labs 03/2014 - normal CBC, TSH, A1c, lipids, CMP Tdap 03/2014 Assessment & Plan (01/25/2016 2:38 PM EST): BP wnl. BMI 30.5 - counseled re: healthy eating, advised pt to continue regular exercise. Repeat pap in 2017. Family planning - pt using condoms, happy with this method. STI screening - pt declined. Checking labs given palpitations, no other routine labwork indicated. Dental - discussed routine care. Vision - discussed routine care Vaccines - Tdap UTD, seasonal flu vaccine ordered. OBESITY 04/11/2014 ALLERGIC RHINITIS, SEASONAL 04/11/2014 Overview (07/27/2015): Controlled with PRN cetirizine. Consider nasal steroid if worsening Resolved Problems Problem Noted Date Diagnosed Date Resolved Date Postconcussion syndrome 07/27/201501/15 Overview (01/25/2016): Fell while snowboarding in 06/2015, had concussion; normal head CT; seen in 07/2015 for ongoing concentration issues, headache, fatigue; symptoms gradually resolved. Fracture of phalanx of toe 01/27/2015 0 07/27/2015 Bronchitis 09/08/2014 07/27/2015 Abdominal pain, left lower quadrant 08/24/2014 07/27/2015 Insomnia 04/11/2014 01/25/2016 SPRAIN AND STRAIN OF UNSPECIFIED SITE OF HAND 07/09/19 13 07/27/2015 Immunizations Immunization Administration Dates Next Due INFLUENZA, SEASONAL, INJECTABLE 01/12/2016 TDAP 04/11/2014 Family History Medical History Relation Name Comments Heart Problems Father CAD, has sten t Heart Problems Maternal Grandfather [place] Cancer Maternal Grandmother ?ovaria n cancer Diabetes Maternal Grandmother Heart Problems Maternal Grandmother heart failure Heart Problems Mother PFO, not repa ired Other (See Comments) Mother fibroid s Alcohol/Drug Abuse Other EtOH mult iple on both sides Heart Problems Paternal Grandfather [place] Diabetes Paternal Grandmother Heart Problems Paternal Grandmother heart failure Stroke Paternal Grandmother Depression Paternal Uncle committed henry cide in 2016 Relation Name Status Comments Father Alive Maternal Grandfather Maternal Grandmother Mother Alive Other Paternal Grandfather Paternal Grandmother Paternal Uncle Social History Tobacco Use Types Packs/Day Years Used Date Smoking Tobacco: Former Smokeless Tobacco: Never Alcohol Use Standard Drinks/Week Comments No 0 (1 standard drink = 0.6 oz pure alcohol) h/o alcohol abuse, sober since 2012 Social Connections Answer Date Recorded Social Connections and Isolation 0 11/08/2018 Financial Resource Strain Answer Date R ecorded Financial Resource Strain 0 2018 Stress Answer Date Recorded Stress 0 11/08/2018 Physical Activity Answer Date Recorded Physical Activity 0 11/08/2018 Food Insecurity Answer Date Recorded Food 0 11/08/2018 Transportation Needs Answer Date Record ed Transportation 0 11/08/2018 Housing Stability Answer Date Recorded Housing 0 11/08/2018 Safety and Environment Answer Date Angel rded Safety 0 11/08/2018 Utilities Answer Date Recorded Utilities 0 11/08/2018 Employment Answer Date Recorded Employment 0 11/08/2018 Comments No Sex and Gender Information Value Date Recorded Sex Assigned at Not on file Legal Sex Female 10:10 PM PST Gender Identity Not on file Sexual Orientation Not on file Last Filed Vital Signs Vital Sign Reading Time Taken Comments Blood Pressure 112/70 02/07/2017 11:29 AM EST Pulse 89 02/07/2017 11:29 AM EST Temperature 36.5 ??C (97.7 ??F) 09/08/2014 12:00 AM E DT Respiratory Rate - - Oxygen Saturation 100% 02/07/2017 11:29 AM EST Inhaled Oxygen Concentration - - Weight 83.9 kg (185 lb) 02/07/2017 11:29 AM EST Height 162.6 cm (5' 4 ) 01/12/2016 2:20 PM EDT Body Mass Index 31.76 01/12/2016 2:20 PM EDT Plan of Treatment Not on file Insurance [facility]
--- NOTE | 2024-06-28 08:10 | A.OFFVIS_ITS ---
Vital Signs 06/28/24 08:13 BP 112/74 Blood Pressure Location Rt brachial Position Sitting Pulse 72 Pulse Source Pulse Oximeter Pulse Oximetry (%) 98 Oxygen Delivery Method Room Air Intake Visit Reasons: Follow up Paresthesia of skin Intake Note: Patient presents for follow up Migraines. New med trial magnesium Allergies insect venom [insect bites] Allergy (Verified 06/28/24 08:12) Anaphylaxis Penicillins Allergy (Verified 06/28/24 08:12) Anaphylaxis codeine Adverse Reaction (Intermediate, Verified 06/28/24 08:12) hyperactivity Medication List - Last Reconciled 06/28/24 by Kandy Aldridge MD bupropion HCl XL 300 mg PO DAILY 90 days gabapentin 100 mg PO BEDTIME 90 days magnesium oxide 400 mg PO BEDTIME pantoprazole 20 mg PO QAM semaglutide 2 mg subcut QWEEK tranexamic acid 1,300 mg (2 x 650 mg) PO TID 5 days HPI Comments Details: 49y/o Right handed female comes for f/u of left meralgia parasthetica.she is feeling better. History from last visit-she had multiple evaluations, CT abdomen , pelvis femur , showed fibroids. The pain lasted 3 days and she started feeling numb and sensitive in the lateral side of her left thigh. she was doing ski conditioning program 2 weeks prior to this which included lot of lunges and squats. she did a yoga class a day prior but no injury . she was able to ski last season . No pain but discomfort and numbness. cold makes it worse. No back pain she also has h/o ocular migraines and recently has on and off floaters - worse with bright light. she sees her budder regularly. [facility] Medical History Ocular migraine Meralgia paresthetica of left side Cyst of buttocks Class 1 obesity with body mass index (BMI) of 33.0 to 33.9 in adult Depression Chronic diarrhea Surgical History History of removal of cyst (~06/25/23) History of esophagogastroduodenoscopy (EGD) Hx of colonoscopy History of knee surgery Family History Mother Cardiovascular disease Father COPD (chronic obstructive pulmonary disease) Heart attack Congenital heart failure Family/Other Mental health disorder Substance use disorder Social History Household Members Other:: Housing: House Alcohol intake: former Patient Tobacco Use Status: Former Tobacco user Tobacco use type: Cigarette e-Cigarette/Vaping Use: Never Used Second Hand Smoke Exposure: No service: No Current occupational status: employed Current occupation: realtor Current occupational exposures/hazards: No Cognitive needs: No Hearing needs: No Vision needs: Yes Female Reproductive History Menstrual Age of Menarche: 14 Physical Exam Vital Signs: Last Vital Signs Pulse 72 06/28/24 08:13 BP 112/74 06/28/24 08:13 Pulse Ox 98 06/28/24 08:13 Oxygen Delivery Method Room Air 06/28/24 08:13 Assessment & Plan Assessment & Plan (1) Meralgia paresthetica of left side: Code(s): G57.12 - Meralgia paresthetica, left lower limb Category: Medical (2) Ocular migraine: Code(s): G43.109 - Migraine with aura, not intractable, without status migrainosus Category: Medical Plan Reviewed EMG results explained the diagnosis in detail suggested loose fitting clothes suggested blue light blocking glasses and magnesium 400mg qhs i will trial her on amitriptyline 10mg qhs Medications: New amitriptyline 10 mg PO BEDTIME 30 tabs 0RF Coding Level of Care Code Est Pt Level 4 (20150) Diagnoses Meralgia paresthetica of left side G57.12 Ocular migraine G43.109
[2024-06-28 08:13] VITALS: BP 112/74; PULSE 72; O2SAT 98
== END 2024-06-28 08:44 | disposition home or self-care (01) ==
LOC: HO.HSMS 08:02
PROVIDERS: PCP Internal Medicine; Visit Provider Psychiatry & Neurology Neurology
DX: G57.12 Meralgia paresthetica, left lower limb (principal); G43.109 Migraine with aura, not intractable, without status migrainosus
CPT/HCPCS: 99214

== ENCOUNTER 2024-10-13 18:32 | Emergency (ER) | payer OTHER, SELFPAY ==
[2024-10-13] VITALS (7 sets, daily range): BP systolic 109–143; BP diastolic 63–91; PULSE 64–71; RESP 16–18; TEMP 36.4–36.8; O2SAT 97–99; BMI 27.5
--- NOTE | 2024-10-13 18:38 | ED_ITS ---
HPI - General Adult General Chief complaint: Allergic Reaction Stated complaint: stung by bee, has bee allergy Time Seen by Provider: 10/13/24 18:52 Source: patient Limitations: no limitations History of Present Illness ED Provider: Breanna Linder PA-C HPI narrative: 49-year-old female with a history of dysfunctional uterine bleeding, uterine fibroids, kidney stones, migraine, GERD, depression who presents with a allergic reaction. Patient has a known allergy to bee stings, she was son in the finger and immediately developed swelling of the upper lip, difficulty swallowing and swelling of the tongue. Denies chest pain, shortness of breath, wheezing. Denies nausea vomiting diarrhea. Related Data Home Medications ?Medication ?Instructions ?Recorded ?Confirmed semaglutide 2 mg/dose (8 mg/3 mL) 2 mg subcut QWEEK 06/28/24 subcutaneous pen injector Previous Rx's ?Medication ?Instructions ?Recorded gabapentin 100 mg capsule 100 mg PO BEDTIME 90 days #9 0 caps 06/17/23 pantoprazole 20 mg tablet,delayed 20 mg PO QAM #30 tab s 10/10/23 release tranexamic acid 650 mg tablet 1,300 mg (2 x 650 mg) PO TID 5 03/02/24 days #30 tabs magnesium oxide 400 mg (241.3 mg 400 mg PO BEDTIME #30 tabs 04/27/24 magnesium) tablet bupropion HCl 300 mg 24 hr tablet, 300 mg PO DAILY 90 days #90 tabs 07/14/24 extended release amitriptyline 10 mg tablet 10 mg PO BEDTIME #30 tabs 0 07/22/24 epinephrine 0.3 mg/0.3 mL 0.3 mg (0.3 mL) IM Q10M PRN 10/13/24 injection, auto-injector (EpiPen hypersensitivity reac tion #2 ea 2-[employer]) Allergies Allergy/AdvReac Type Severity Reaction Status Date / Time bee pollen (bee stings) Allergy Anaphylaxis Verified 10/13/24 18:37 insect venom (insect bites) Allergy Anaphylaxis Verified 10/13/24 18:37 Penicillins Allergy Anaphylaxis Verified 10/13/24 18:37 codeine AdvReac Intermediate hyperactivi Verified 10/13/24 18:37 ty Review of Systems Review of Systems: Yes all other systems are reviewed and are negative Constitutional: Constitutional: Denies fatigue and Denies fever(s) ENT: Reports sore throat and Reports tongue swelling Cardiovascular: Cardiovascular: Denies chest pain and Denies dyspnea Respiratory: Respiratory: Denies cough, Denies dyspnea and Denies wheezing Gastrointestinal: Gastrointestinal: Denies diarrhea, Denies nausea and Denies vomiting Endocrine: Endocrine: Denies fatigue Allergic/Immunologic: Allergic/Immunologic: Reports tongue swelling and Denies wheezing PMFSH Past Medical History Attestation statement: The following information was validated with the patient. Medical History Ocular migraine Meralgia paresthetica of left side Cyst of buttocks Class 1 obesity with body mass index (BMI) of 33.0 to 33.9 in adult Depression Chronic diarrhea Surgical History History of removal of cyst (~06/25/23) History of esophagogastroduodenoscopy (EGD) Hx of colonoscopy History of knee surgery Family History Family History Mother Cardiovascular disease Father COPD (chronic obstructive pulmonary disease) Heart attack Congenital heart failure Family/Other Mental health disorder Substance use disorder Social History Social History Household Members Other:: Housing: House Alcohol intake: former Patient Tobacco Use Status: Former Tobacco user Tobacco use type: Cigarette Smoked in Last 30 Days: No e-Cigarette/Vaping Use: Never Used Second Hand Smoke Exposure: No Use of substances other than those prescribed or required for medical reasons: No Advance Directives: No Advance Directives Information Provided: No service: No Current occupational status: employed Current occupation: realtor Current occupational exposures/hazards: No Cognitive needs: No Hearing needs: No Vision needs: Yes Physical Exam ED Vital Signs: Vital Signs - 24 hr 10/13/24 18:34 10/13/24 18:42 10/13/24 18:58 Temperature 97.6 F 98.3 F Pulse Rate 69 70 64 Respiratory Rate 18 16 Blood Pressure 143/88 H 141/91 H 124/72 Pulse Oximetry 97 98 Oxygen Delivery Method Room Air Room Air 10/13/24 19:22 10/13/24 20:15 10/13/24 22:09 Temperature 98.3 F 97.8 F Pulse Rate 66 65 69 Respiratory Rate 16 16 Blood Pressure 127/77 122/73 134/70 Pulse Oximetry 97 99 Oxygen Delivery Method Room Air Room Air BMI result Body Mass Index 27.5 Const Other: Alert Orientation/consciousness: patient oriented x3 HENMT Other: Uvula is not edematous, oropharynx is clear, tongue is not swollen at this time, angioedema noted of the upper lip Resp Other: No wheezing no stridor Cardio Other: Normal peripheral perfusion Skin Other: Warm dry no rash Neuro General: patient oriented x3, gait normal, no focal motor deficits and CN's II- XI intact bilaterally Psych Other: Cooperative, appears anxious Course Course Course Narrative: RME, this is a rapid medical exam performed by Erwin Zhao please refer to primary provider for complete H&P- 49-year-old female with past medical history significant for a known bee allergy presents for evaluation after a bee sting to her upper lip on the inside. She also reports being started in the hand. She has some edema to the upper lip in the area immediately where she was stung but no diffuse edema or retropharyngeal edema. No Waqas's angina. No stridor on exam. She did not use her EpiPen. Plan for oral Benadryl, Pepcid, prednisone and close observation. She was immediately brought back to room 6 Reevaluation(s) Reevaluation #1: The reaction is improving, the patient has been here over 3 hours, we will discharge now Time: 22:22 Medications Administered Discontinued Medications Generic Name Dose Route Start Last Admin Trade Name Ruben PRN Reason Stop Dose Admin Diphenhydramine HCl 50 mg 10/13/24 18:52 10/13/24 19:00 Diphenhydramine Hcl 50 Mg/Ml Vial IVPUSH 10/13/24 18:53 50 mg ONCE ONE Administration Epinephrine 0.3 mg 10/13/24 18:52 10/13/24 18:58 Epinephrine 1 Mg/Ml Vial IM 10/13/24 18:53 0.3 mg STAT STA Administration Epinephrine 0.3 mg 10/13/24 19:18 10/13/24 19:22 Epinephrine 1 Mg/Ml Vial IM 10/13/24 19:19 0.3 mg STAT STA Administration Famotidine 20 mg 10/13/24 18:52 10/13/24 19:05 Famotidine/Pf 20 Mg/2 Ml Vial IVPUSH 10/13/24 18:53 20 mg ONCE ONE Administration Sodium Chloride 1,000 mls @ 999 mls/hr 10/13/24 19:00 10/13/24 19:06 Ns IV 10/13/24 20:00 999 mls/hr .Q1H1M ESTEVAN Administration Methylprednisolone Sodium Succinate 125 mg 10/13/24 18:52 10/13/24 19:02 Methylprednisolone Sod Succ 125 Mg/2 Ml Vial IVPUSH 10/13/24 18:53 125 mg ONCE ONE Administration Medical Decision Making Medical Decision Making MDM Narrative: 49-year-old female with a history of dysfunctional uterine bleeding, uterine fibroids, kidney stones, migraine, GERD, depression who presents with a allergic reaction. Patient has a known allergy to bee stings, she was son in the finger and immediately developed swelling of the upper lip, difficulty swallowing and swelling of the tongue. Denies chest pain, shortness of breath, wheezing. Denies nausea vomiting diarrhea. Problem: Allergic to be stings History: Per patient I have considered the following differential diagnoses: Anaphylaxis, angioedema, allergic reaction, urticaria, Plan: Patient has a evidence of angioedema, we will be giving epinephrine, Solu-Medrol, Benadryl famotidine fluid, we will continue to monitor her for. A 3 hours to be sure there was no progression of reaction. Discharge Plan Discharge Clinical Impression: Allergic reaction, Angioedema Patient Disposition: Home, Self-Care Instructions: Angioedema (ED), General Allergic Reaction (ED) Additional Instructions: You were treated for an allergic reaction. See home care instructions. If you develop similar symptoms, immediately administered the EpiPen to yourself, then seek medical attention. Follow up with your primary care provider as needed. Prescriptions: New epinephrine [EpiPen 2-[employer]] 0.3 mg/0.3 mL auto-injector 0.3 mg IM Q10M PRN (Reason: hypersensitivity reaction) Qty: 2 0RF Rx Instructions: for 2 doses No Action pantoprazole 20 mg tablet,delayed release (DR/EC) 20 mg PO QAM Qty: 30 11RF magnesium oxide 400 mg (241.3 mg magnesium) tablet 400 mg PO BEDTIME Qty: 30 6RF bupropion HCl 300 mg tablet extended release 24 hr 300 mg PO DAILY 90 Days Qty: 90 1RF amitriptyline 10 mg tablet 10 mg PO BEDTIME Qty: 30 0RF gabapentin 100 mg capsule 100 mg PO BEDTIME 90 Days Qty: 90 0RF semaglutide 2 mg/dose (8 mg/3 mL) pen injector 2 mg subcut QWEEK tranexamic acid 650 mg tablet 1,300 mg PO TID 5 Days Qty: 30 0RF Print Language: Upper Sorbian
--- NOTE | 2024-10-13 22:30 | PC.NURSE ---
This suspender cutter discharge instructions with pt. pt verbalized understanding, no sign of distress, pt able to speak in full sentences. Notified RN Trish
== END 2024-10-13 22:38 | disposition home or self-care (01) ==
PROVIDERS: Emergency Provider Emergency Medicine; PCP Internal Medicine
DX: T63.441A Toxic effect of venom of bees, accidental (unintentional), initial encounter (principal); R22.9 Localized swelling, mass and lump, unspecified; Y92.9 Unspecified place or not applicable
CPT/HCPCS: 96361; 96372; 96374; 96375; 99284; J0165; J1200; J1308; J2919

== ENCOUNTER → 2024-12-07 13:30 | Outpatient (BNV) | payer OTHER, SELFPAY | PROVIDERS: PCP Internal Medicine; Visit Provider Radiology Body Imaging | DX: Z12.31 Encounter for screening mammogram for malignant neoplasm of breast (principal) | CPT/HCPCS: 77063; 77067 ==

== ENCOUNTER 2024-12-07 13:33 | Outpatient (REF) | payer OTHER, SELFPAY ==
--- OUTSIDE RECORDS SUMMARY | 2024-12-07 16:40 | XMS_ITS | Encounter Summary ---
Author Organization Formerly [facility] Address [address] [place] [id number] Phone Care Team Providers Care Tooling Supervisor Name Role Phone Sangeetha Gomez MD Primary Care Provi sarika Unavailable Elo Dudley Primary Care Provide r Collins Martinez MD Unavailable [phone] Sona Pereira MD Primary Care Provid er Encounter Details Date Type Department Care Team (Latest Contact Info) Description 06/18/2016 Ancillary Orders [facility] Electrocardiography Clinic [facility] [place] [address] Theresa Taylor MD Palpitation Social History Tobacco Use Types Packs/Day Years Used Date Smoking Tobacco: Former Cigarettes 0.3 15 1 04/25/1999 - 02/22/2015 Smokeless Tobacco: Never Alcohol Use Standard Drinks/Week Comments No 0 (1 standard drink = 0.6 oz pur e alcohol) In recovery Comments No Sex and Gender Information Value Date Recorded Sex Assigned at Female 03/24/2017 9:44 AM EST Legal Sex Female 6:15 PM EST Gender Identity Female 05/12/2017 4:38 PM EST Sexual Orientation Not on file documented as of this encounter Plan of Treatment Not on file documented as of this encounter Results * Holter Monitor 24 Hours (07/04/2016 9:25 AM EDT) Anatomical Region Laterality Modality Heart Other 07/04/2016 9:17 AM EDT Narrative 07/15/2016 9:32 AM EDT Bar Attendant Comments: Preliminary Bar Attendant Interpretation: Sinus bradycardia to sinus tachycardia with sinus arrhythmia No diary events entered Physician Comments: Sinus rhythm with occasional VPC's, 1 V couplet and 1 APC. No conduction abnormalities. No symptoms reported. Electronically Reviewed by ALVIN GILL on 07/15/2016 9:31AM (CT) Procedure Note Alvin Ludwig MD - 07/15/2016 Bar Attendant Comments: Preliminary Bar Attendant Interpretation: Sinus bradycardia to sinus tachycardia with sinus arrhythmia No diary events entered Physician Comments: Sinus rhythm with occasional VPC's, 1 V couplet and 1 APC. Noconduction abnormalities. No symptoms reported. Electronically Reviewed by ALVIN GILL on 07/15/2016 9:31AM(CT) Theresa Taylor MD [facility] Final Result documented in this encounter Visit Diagnoses Diagnosis Palpitation Palpitations Palpitation Palpitations documented in this encounter Care Teams Tooling Supervisor Relationship Specialty Start Date End Date Sangeetha Gomez MD [address] [place] [address] PCP - General 08/24/14 04/21/18 Elo Dudley PA [address] [place] [id number] [email or web address] PCP - General 04/22/18 08/21/21 Sona Pereira MD [address] [place] [id number] [email or web address] PCP - General Family Medicine 08/22/21 1 03/21/23 Collins Martinez MD [address] [place] [address], [address] [place] [address] [email or web address] Internal Medicine 04/22/18 01/20/24 documented as of this encounter Additional Source Comments The information contained in this document represents components of the legal health record. It is not the complete legal health record.Formerly [facility]
--- OUTSIDE RECORDS SUMMARY | 2024-12-07 16:40 | XMS_ITS | Encounter Summary ---
Author Organization [facility] Address [id number] [place] [address] Phone Care Team Providers Care Assistant Refinery Operator Name Role Phone Collins Martinez MD Unavailable [phone] Sona Pereira MD Primary Care Provid er Encounter Details Date Type Department Care Team (Late st Contact Info) Description 01/31/2022 Procedure Pass [facility], [address] [id number] Social History Tobacco Use Types Packs/Day Years Used Date Smoking Tobacco: Former Cigarettes 0.5 20.6 0 07/15/1994 - 02/22/2015 Smokeless Tobacco: Never Comments:I smoked on and off for 20 years Alcohol Use Standard Drinks/Week Comments Not Currently 15 (1 standard drink = 0.6 oz pure alcohol) 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 Comments No Sex and Gender Information Value Date Recorded Sex Assigned at Female 03/24/2017 9:44 AM EST Legal Sex Female 6:15 PM EST Gender Identity Female 05/12/2017 4:38 PM EST Sexual Orientation Not on file 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 Not on file Not on file documented as of this encounter Plan of Treatment Not on file documented as of this encounter Visit Diagnoses Not on filedocumented in this encounter Care Teams Assistant Refinery Operator Relationship Specialty Start Date End Date Sona Pereira MD [address] [id number] [email or web address] PCP - General Family Medicine 08/22/21 1 03/21/23 Collins Martinez MD [address] [place] [address], [address] [place] [address] [email or web address] Medicine 04/22/18 01/20/24 documented as of this encounter Additional Source Comments The information contained in this document represents components of the legal health record. It is not the complete legal health record.[facility]
--- OUTSIDE RECORDS SUMMARY | 2024-12-07 16:40 | XMS_ITS | Clinical Summary ---
Author Organization [facility] Address [address] [place] [id number] Phone Care Team Providers Care Adjunct Faculty Mathematics Department Name Role Phone Unavailable Primary Care Provider Unavailabl e Allergies Active Allergy Reactions Criticality Noted Date Comments Bee Pollen Anaphylaxis High 01/12/2016 Beeswax Anaphylaxis High 08/24/2014 Codeine Unknown 03/05/2011 Penicillins Unknown 03/05/2011 Venom-Honey Bee Anaphylaxis High 01/12/2016 Wasp Venom Anaphylaxis High 01/12/2016 Medications BUPROPION HCL (WELLBUTRIN ORAL) Take 300 mg by mouth daily. Active EPINEPHrine 0.3 mg/0.3 mL auto-injector Inject 0.3 mL (0.3 mg total) into the muscle once as needed for anaphylaxis . 2 Device 1 04/22/2018 Active Active Problems Problem Noted Date Diagnosed Date Bee sting allergy 04/22/2018 Depression with anxiety 04/22/2018 BMI 30.0-30.9,adult 04/22/2018 Irritable bowel syndrome with diarrhea 6 Overview (04/22/2018): Overview: Chronic GI symptoms consistent with IBS. Pt avoids gluten. TTG Ab normal in 03/2014. Last Assessment & Plan: Discussed dietary modifications for management of IBS. Reviewed reasons to return to clinic. Palpitations 01/25/2016 Overview (04/22/2018): Overview: Infrequent episodes for about 20 years. 01/12/16 - EKG normal. Hgb/hct, electrolytes, TSH normal. Father has ICD, but pt not sure of exact diagnosis Maternal aunt, age 55, with sudden cardiac arrest, fatal Last Assessment & Plan: Awaiting appt for holter monitor. Closed fracture of second toe of right foot 01/15 Chronic pelvic pain in female 09/29/2014 Overview (11/03/2019): Last Assessment & Plan: Reviewed prior pelvic ultrasound that showed 4.5cm myoma on the left side and another 3.5 cm myoma, none in the cavity. Negative Urine test. Negative urine dip/ negative wet prep/ JACK. GC/CHL swab done. LLQ pain may be due to the fibroids, but separate from dysmenorrhea. Advised Ibuprofen PRN. Symptomatic follow-up. May repeat Pelvic ultrasound in a year. Dysmenorrhea 09/19/2014 Overview (04/22/2018): Overview: Takes naproxen as needed. Leiomyoma of uterus 09/19/2014 Overview (04/22/2018): Overview: Pelvic US 08/24/14 at [place]: FINDINGS: The uterus measures 7.2 cm x [...] significant free fluid. Pelvic US 07/08/12 at [facility] - left-sided subserosal fibroid measuring 4.0 x 3.0 x 2.8 cm, right ovary with simple cyst (1.6 x 1.3 x 1.8cm), left ovary with simple cyst (2.5 x 2.4 x 2.2cm) Pelvic US 02/25/13 at [facility] - subserosal fibroid measuring 3.9 x 3.9 x 3.3 cm, ovaries normal Menopausal depression 07/18/2014 Overview (04/22/2018): Overview: Sees psychiatrist. On wellbutrin 450mg daily since 03/2015. Last Assessment & Plan: Psychological condition is improving with treatment. PHQ9=1. Plan: Continue current treatment regimen. Regular aerobic exercise. Psychological condition will be reassessed at next behavioral health appointment. Allergic rhinitis due to pollen 04/11/2014 Overview (04/22/2018): Overview: Controlled with PRN cetirizine. Consider nasal steroid if worsening Obesity 04/11/2014 Immunizations Immunization Administration Dates Next Due DTaP 04/11/2014 INFLUENZA, SPLIT VIRUS, TRIV ALENT W/ PRESERVATIVE IM 01/12/2016 Influenza Quadrivalent MDCK Preservative Free IM 05/10/2019 Influenza Quadrivalent w/ Preservative IM 2020 Influenza Recombinant Jorge valent Preservative Free IM 04/22/2018 Tdap 2015,04/11/2014,01/06/2011 Family History Medical History Relation Comments COPD Father Gout Father Heart failure Father defibrillator pl aced Hyperlipidemia Father Heart attack Maternal Aunt Heart failure Maternal Grandfather Heart failure Maternal Grandmother Heart defect Mother Macular degeneration Mother Heart failure Paternal Grandfather Heart failure Paternal Grandmother Relation Status Comments Father Alive Maternal Aunt Maternal Grandfather Maternal Grandmother Mother Alive Paternal Grandfather Paternal Grandmother Social History Tobacco Use Types Packs/Day Years Used Date Smoking Tobacco: Former Cigarettes 0.5 20.6 0 07/15/1994 - 02/22/2015 Smokeless Tobacco: Never Tobacco Cessation:Counseling Given: No Comments:I smoked on and off for 20 years Alcohol Use Standard Drinks/Week Comments Not Currently 15 (1 standard drink = 0.6 oz pure alcohol) 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 Not on anahi e 07/14/2022 Are you concerned about learning? Not on file 07/14/2022 No 07/14/2022 No 07/14/2022 Digital Access Answer Date Recorded No 08/10/2022 No 08/10/2022 No 08/10/2022 Reliable internet access at home? Not on file 08/10/2022 Device with a working camera? 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 Not on file Not on file Last Filed Vital Signs Vital Sign Reading Time Taken Comments Blood Pressure 147/89 02/16/2022 12:45 PM EST Pulse 74 02/16/2022 12:43 PM EST Temperature 36.5 C (97.7 F) 02/16/2022 12:43 PM EST Respiratory Rate 14 02/16/2022 12:43 PM EST Oxygen Saturation 98% 02/16/2022 12:43 PM EST Inhaled Oxygen Concentration - - Weight 81.6 kg (180 lb) 02/16/2022 12:43 PM EST Height 165.1 cm (5' 5 ) 02/16/2022 12:43 PM EST Body Mass Index 29.95 02/16/2022 12:43 PM EST Plan of Treatment Health Maintenance Due Date Last Done Comments SMOKING Hx and SMOKELESS TOBACCO SCREENING 1990 HEPATITIS C SCREENING 1995 HIV ONE-TIME SCREENING (18-65 YEARS) 1995 DEPRESSION SCREENING 01/28/2016 01/27/2015 PAP SMEAR 04/22/2021 04/22/2018, 04/22/2018 SCREENING FOR DIABETES 04/22/2021 04/22/2018 COLOGUARD 2022 COLONOSCOPY 2022 COLORECTAL CANCER SCREENING 2022 FIT TEST 2022 FOBT 2022 SIGMOIDOSCOPY 2022 VIRTUAL COLONOSCOPY 2022 LIPID PANEL 04/22/2023 04/22/2018 MAMMOGRAM 02/06/2024 02/05/2022, 04/24/2018 INFLUENZA VACCINE (#1) 2024 , 05/10/2019, 04/22/2018, Additional history exists COVID-19 VACCINE ( season) 2024 02/23/2021, 06/20/2020, 05/30/2020 Adult Td,Tdap Booster 2025 2015 , 04/11/2014, 01/06/2011 HEPATITIS A VACCINES Aged Out No long er eligible based on patient's age to complete this topic HIB VACCINES Aged Out No longer eligi ble based on patient's age to complete this topic MENINGOCOCCAL VACCINES (ACWY) Aged Out No longer eligible based on patient's age to complete this topic MENINGOCOCCAL VACCINES (B) Aged Out N o longer eligible based on patient's age to complete this topic PNEUMOCOCCAL VACCINES (0-49 years) Aged Out No longer eligible based on patient's age to complete this topic Medical Devices Not on file Procedures Procedure Name Priority Date/Time Associated Diagnosis Comments BI MAMMOGRAM SCREENING WITH TOMOSYNTHESIS WITH CAD (BILATERAL) Routine 02/05/2022 11:46 AM EST Breast screening LIPID PANEL Routine 04/22/2018 12:09 PM EST Preventative health care PAP TEST Routine 04/22/2018 12:00 AM EST from Last 3 Months or Most Recently Relevant to Health Maintenance Results * BI MAMMOGRAM SCREENING WITH TOMOSYNTHESIS WITH CAD (BILATERAL) (02/05/2022 11:46 AM EST) Anatomical Region Laterality Modality Breast Left, Breast Right, Breast Bilateral Bila teral Mammography 02/06/2022 12:0 5 PM EST Impressions 02/06/2022 12:10 PM EST BILATERAL BREASTS: Benign, no evidence of malignancy. Normal interval follow-up is recommended in 12 months. Bi-RADS: BI-RADS CATEGORY: 2 - Benign finding. DENSITY: There are scattered fibroglandular densities. RIGHT RECOMMENDATION DUE DATE: 12 Months Recommendation: Right Mammography Screening LEFT RECOMMENDATION DUE DATE: 12 Months Recommendation: Left Mammography Screening Narrative 02/06/2022 12:10 PM EST STUDY: Bilateral screening mammography with tomosynthesis and CAD TECHNIQUE: Bilateral full-field digital screening mammography is obtained and read in conjunction with computer-aided detection. Tomosynthesis as well as 2-D C view imaging were obtained. COMPARISON: 05/07/2018 and 04/24/2018 BREAST COMPOSITION: There are scattered areas of fibroglandular density BILATERAL BREASTS: No new masses, suspicious calcifications or other abnormalities are seen. No significant interval change. Procedure Note Emily Alcantara MD - 02/06/2022 STUDY: Bilateral screening mammography with tomosynthesis and CAD TECHNIQUE: Bilateral full-field digital screening mammography is obtainedand read in conjunction with computer-aided detection. Tomosynthesis aswell as 2-D C view imaging were obtained. COMPARISON: 05/07/2018 and 04/24/2018 BREAST COMPOSITION: There are scattered areas of fibroglandulardensity BILATERAL BREASTS: No new masses, suspicious calcifications or otherabnormalities are seen. No significant interval change. IMPRESSION: BILATERAL BREASTS: Benign, no evidence of malignancy. Normal intervalfollow-up is recommended in 12 months. Bi-RADS: BI-RADS CATEGORY: 2 - Benign finding. DENSITY: There are scattered fibroglandular densities. RIGHT RECOMMENDATION DUE DATE: 12 Months Recommendation: Right Mammography Screening LEFT RECOMMENDATION DUE DATE: 12 Months Recommendation: Left Mammography Screening Kalli Thompson OINTMENT MILL TENDER IMG MG EXAMS Final Result * (ABNORMAL) Lipid panel (04/22/2018 12:09 PM EST) HDL 62 mg/dL [facility] Comment: Interpretation <40 mg/dL: Low HDL cholesterol (major risk factor for CHD) Greater than or equal to 60 mg/dL: High HDL cholesterol ( negative risk factor for CHD) HDL - cholesterol is affected by a number of factors, e.g. smoking, excerise, hormones, sex and age. CHOLESTEROL 238 0 - 240 mg/dL [facility] TRIGLYCERIDES 69 30 - 160 mg/dL [facility] LDL 162(H) 50 - 129 mg/dL [facility] Comment: LDL levels in terms of risk for coronary heart disease: <100 mg/dL: Optimal 100-129 mg/dL: Near or above optimal 130-159 mg/dL: Borderline high 160-189 mg/dL: High >190 mg/dL: Very High CARDIAC RISK RATIO 3.8 3.3 - 4.4 C [facility] Blood 04/22/2018 12:0 9 PM EST 04/22/2018 12:11 PM EST us [facility] BLOOD ORDERABLES Final Result Performing Organization Address City/State/[facility] Co de Phone Number [address] [address] * (ABNORMAL) Pap Smear (04/22/2018 12:00 AM EST) 04/22/2018 04/23/2018 12: 08 PM EST Narrative SEE NARRATIVE - 04/29/2018 5:51 PM EST [address] [address] Certified Mortician: Dominique Dc MD BIBLIOGRAPHIC SERVICES SPECIALIST Cytology Report FINAL DIAGNOSIS A. PAP SMEAR (SUREPATH) CE: SPECIMEN ADEQUACY: Satisfactory for evaluation; transformation zone present. INTERPRETATION: EPITHELIAL CELL ABNORMALITY - SQUAMOUS. Atypical squamous cells of undetermined significance. Electronically Signed Out By: MD [facility](AS[facility]) By his/her signature above, the pathologist listed as making the Final Diagnosis certifies that he/she has personally reviewed this case and confirmed or corrected the diagnosis. The Pap test is a screening test primarily for squamous cancers and precursors and has associated false-negative and false-positive results. New technologies such as liquid-based preparations may decrease but will not eliminate all false-negative results. Regular sampling and follow-up of unexplained clinical signs and symptoms are recommended to minimize false negative results. PROCEDURES/ADDENDA HPV Testing (Requested) Ordered Date: 04/23/2018 HPV Test Negative for high-risk human papillomavirus types 16, 18, 45 and the Other high risk probe set (Includes 31, 33, 35, 39, 51, 52, 56, 58, 59, 66, 68) by Casper Onclarity HR-HPV analysis. Clinical correlation is advised. This HPV test was performed at [facility], [address] [place] [address]. This test has been FDA approved for SurePath cervical cytology specimens. The accuracy and precision of this test for all other specimen sources has been verified in the Cytopathology Laboratory of the [facility] and has not been cleared or approved by the U.S. Food and Drug Administration. Clinical correlation is advised. CLINICAL HISTORY Date of Last Menstrual Period: 04/16/18 Other Clinical Conditions: Screening Pap SPECIMEN SOURCE A: PAP SMEAR (SUREPATH) CE Patient Name: MOE WATTS : 1975 (Age: 43) Sex: F Institution: [facility] Location: [facility] Date of Collection: 04/22/2018 Date of Reported: 04/29/2018 17:51 Results to: Dustin Shabazz MD Dustin Shabazz MD CYTOLOGY ORDERABLES Final Result SEE NARRATIVE from Last 3 Months or Most Recently Relevant to Health Maintenance Insurance [facility] Additional Source Comments The information contained in this document represents components of the legal health record. It is not the complete legal health record.[facility]
--- OUTSIDE RECORDS SUMMARY | 2024-12-07 16:40 | XMS_ITS | Encounter Summary ---
Author Organization [facility] Address [address] [place] [address] Phone Care Team Providers Care Brush Holder Inspector Name Role Phone Sangeetha Gomez MD Primary Care Provi sarika Elo Reynaga Primary Care Provide r Collins Martinez MD Unavailable [phone] Sona Pereira MD Primary Care Provid er Encounter Details Date Type Department Care Team (Late st Contact Info) Description 06/13/2016 Ancillary Orders [facility] Electrocardiography Clinic [address] [place], [place] [id number] Sangeetha Gomez MD [address] [place] [address] Palpitation Social History Tobacco Use Types Packs/Day [...] documented as of this encounter Visit Diagnoses Diagnosis Palpitation Palpitations documented in this encounter Care Teams Brush Holder Inspector Relationship Specialty Start Date End Date Sangeetha Gomez MD [address] [place] [address] PCP - General 08/24/14 04/21/18 Elo Dudley PA [address] [place] [id number] [email or web address] PCP - General 04/22/18 08/21/21 Sona Pereira MD [address] [place] [address] [place] [phone] [email or web address] PCP - General Family Medicine 08/22/21 1 03/21/23 Collins Martinez MD [address] [place] [address], [address] [place] [address] [email or web address] Internal Medicine 04/22/18 01/20/24 documented as of this encounter Additional Source Comments The information contained in this document represents components of the legal health record. It is not the complete legal health record.[facility]
--- OUTSIDE RECORDS SUMMARY | 2024-12-07 16:40 | XMS_ITS | Clinical Summary ---
Author Organization [facility] Address [address] [place] [address] Care Team Providers Care Fur Buyer Name Role Phone Unavailable Primary Care Provider [...] 09/19/2014 Overview (02/21/2016): Pelvic US 08/24/14 at [place]: FINDINGS: The uterus measures 7.2 cm x [...] significant free fluid. Pelvic US 07/08/12 at [facility] - left-sided subserosal fibroid measuring 4.0 x 3.0 x 2.8 cm, right ovary with simple cyst (1.6 x 1.3 x 1.8cm), left ovary with simple cyst (2.5 x 2.4 x 2.2cm) Pelvic US 02/25/13 at [facility] - subserosal fibroid measuring 3.9 x [...] has sten t Heart Problems Maternal Grandfather NC Cancer Maternal Grandmother ?ovaria n cancer Diabetes Maternal Grandmother Heart Problems Maternal Grandmother heart failure Heart Problems Mother PFO, not repa ired Other (See Comments) Mother fibroid s Alcohol/Drug Abuse Other EtOH mult iple on both sides Heart Problems Paternal Grandfather NC Diabetes Paternal Grandmother Heart Problems Paternal Grandmother [...] 89 02/07/2017 11:29 AM EST Temperature 36.5 C (97.7 F) 09/08/2014 12:00 AM EDT Respiratory Rate - - Oxygen Saturation 100% 02/07/2017 11:29 AM EST Inhaled Oxygen Concentration - - Weight 83.9 kg (185 lb) 02/07/2017 11:29 AM EST Height 162.6 cm (5' 4 ) 01/12/2016 2:20 PM EDT Body Mass Index 31.76 01/12/2016 2:20 PM EDT Plan of Treatment Not on file Insurance [facility]
--- OUTSIDE RECORDS SUMMARY | 2024-12-07 16:40 | XMS_ITS | Encounter Summary ---
Author Organization [facility] Address [address] [place] [phone] Phone Care Team Providers Care Transportation Manager Name Role Phone [place], Elo NEVILLE Primary Care Provide r Collins Martinez MD Unavailable [phone] Sona Pereira MD Primary Care Provid er Encounter Details Date Type Department Care Team (Late st Contact Info) Description 04/27/2018 Ancillary Orders [facility] [address] [place] [address] [phone] Dustin Shabazz MD [address] [facility], [address] [place] [address] [email or web address] Abnormal mammogram Social History Tobacco Use Types Packs/Day Years Used Date Smoking Tobacco: Former Cigarettes 0.3 15 1 04/25/1999 - 02/22/2015 Smokeless Tobacco: Never Comments:Smoked on and off f rom age 18 to 41 Alcohol Use Standard Drinks/Week Comments No 0 (1 standard drink = 0.6 oz pur e alcohol) abstinent 09/25/2012 Comments No Sex and Gender Information Value Date Recorded Sex Assigned at Female 03/24/2017 9:44 AM EST Legal Sex Female 6:15 PM EST Gender Identity Female 05/12/2017 4:38 PM EST Sexual Orientation Not on file 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 No findings of concern for malignancy are noted. Ultrasound is not obtained as this was not necessary based upon the mammogram appearance. The patient can resume routine mammography. The results were given to the patient by the technologist at the time of the examination. BI-RADS CATEGORY: 2 - Benign finding. DENSITY: There are scattered fibroglandular densities. S/S: Follow-up calcific density evident on screening mammogram, calcified lymph node, benign lymph node POS [id number] Narrative 05/11/2018 1:37 PM EST Full field digital mammography was obtained with computer-aided detection. There is scattered fibroglandular density evident in the breast. 2-D C view images obtained as well as tomosynthesis images in two projections of the left breast. Exaggerated craniocaudad imaging is obtained in 2-D and 3-D acquisitions as well as magnification left MLO, and non-mag spot compression left MLO view in 2-D and 3-D acquisition. Comparison with prior imaging from 04/24/2018 is made. The exam is performed because of a calcific density evident on screening mammography. The follow-up views confirm the presence of a benign calcified lymph node in the outer slightly upper left breast. A separate adjacent calcified node is also noted. No adverse features are suspected. Dustin Shabazz MD IMG MG EXAMS Final Result documented in this encounter Visit Diagnoses Diagnosis Abnormal mammogram Abnormal mammogram, unspecified Abnormal mammogram Abnormal mammogram, unspecified documented in this encounter Care Teams Transportation Manager Relationship Specialty Start Date End Date Elo Dudley PA [address] [place] [phone] [email or web address] PCP - General 04/22/18 08/21/21 Sona Pereira MD [address] [place] [address] [place] [phone] [email or web address] - General Family Medicine 08/22/21 1 03/21/23 Collins Martinez MD [address] [place] [address], [address] [place] [address] [email or web address] Internal Medicine 04/22/18 01/20/24 documented as of this encounter Additional Source Comments The information contained in this document represents components of the legal health record. It is not the complete legal health record.[facility]
== END 2024-12-07 13:34 | disposition home or self-care (01) ==
LOC: HO.MAMMO 13:33
PROVIDERS: PCP Internal Medicine; Visit Provider Internal Medicine
DX: Z12.31 Encounter for screening mammogram for malignant neoplasm of breast (principal)
CPT/HCPCS: 77063; 77067